=== PATIENT | female | born 1940 | race Caucasian/White ===

== ENCOUNTER 2017-01-25 08:45 | Day surgery (SDC) | payer MEDICARE, OTHER ==
[~2017-01-25 08:45] MED LIST: DIPHENHYDRAMINE HCL 50 MG/ML VIAL ONE; EPINEPHRINE INJ 1 MG/10 ML DISP.SYRIN ONE; FENTANYL CITRATE INJ/PF 100 MCG/2 ML AMPUL ONE; FLUMAZENIL INJ 0.5 MG/5 ML VIAL IV ONE; GLUCAGON,HUMAN RECOMB 1 MG INJ ONE; NALOXONE HCL INJ/PF 0.4 MG/1 ML SDV ONE; ONDANSETRON HCL INJ/PF 4 MG/2 ML SDV ONE
[2017-01-25] MEDS: MIDAZOLAM 2 MG/2 ML INJ ONE ×2 (09:04→09:09)
--- NOTE | 2017-01-25 09:22 | Operative Report ---
Operative Report DATE OF SURGERY: 01/25/17 Operative Report: The risks benefits and alternatives of the procedure explained to the patient in detail and informed consent is obtained that GIF Olympus video scope was inserted into the patient's mouth and hypopharynx the esophagus is identified intubated and insufflated the scope was then advanced through the esophagus stomach and duodenum retroflexion maneuver is done the esophagus stomach and first and second portions of the duodenum examined PREOPERATIVE DIAGNOSIS: History of gastric AVMs POSTOPERATIVE DIAGNOSIS: Gastric AVMs which are ablated in situ. Single variceal column which will need to be banded in the future OPERATION: EGD with ablation SURGEON: BLANQUITA LOWERY ANESTHESIA: Moderate Sedation - 3 mg of Versed, 25 g of fentanyl. TISSUE REMOVED OR ALTERED: None. COMPLICATIONS: None. ESTIMATED BLOOD LOSS: none. INTRAOPERATIVE FINDINGS: Finding of esophageal variceal column. Gastric AVMs PROCEDURE: Patient tolerated procedure well. No immediate postprocedure complications are noted. Patient is discharged in good condition. Discharge date 01/25/17. Discharge diet: Regular. Discharge activity: Regular. 2-3 week follow-up to discuss findings. We'll schedule patient for outpatient procedure for specific banding of the variceal columns. Patient is instructed to call the office should there be any further problems or questions.
[2017-01-25 11:06] VITALS: BP 141/46
== END 2017-01-25 10:51 | disposition home or self-care (01) ==
LOC: END 08:45
PROVIDERS: ATTEND Internal Medicine Gastroenterology
PROC: 0D568ZZ Destruction of Stomach, Via Natural or Artificial Opening Endoscopic (ICD-10-PCS; principal; 2017-01-25 09:00)
DX: Q27.33 Arteriovenous malformation of digestive system vessel (principal); K21.9 Gastro-esophageal reflux disease without esophagitis; K74.60 Unspecified cirrhosis of liver; K75.81 Nonalcoholic steatohepatitis (NASH)
CPT/HCPCS: 43255; J2250; J3010; J0171; J1200; J1610; J2310; J2405; J3490

== ENCOUNTER 2017-04-12 07:47 | Day surgery (SDC) | payer MEDICARE, OTHER ==
[2017-04-12] MEDS ORDERED: ONDANSETRON HCL INJ/PF 4 MG/2 ML SDV ONE (07:50)
[2017-04-12] MEDS ORDERED: DIPHENHYDRAMINE HCL 50 MG/ML VIAL ONE (07:50)
[2017-04-12] MEDS ORDERED: NALOXONE HCL INJ/PF 0.4 MG/1 ML SDV ONE (07:50)
[2017-04-12] MEDS ORDERED: FLUMAZENIL INJ 0.5 MG/5 ML VIAL IV ONE (07:51)
[2017-04-12] MEDS ORDERED: FENTANYL CITRATE INJ/PF 100 MCG/2 ML AMPUL ONE (07:51)
[2017-04-12] MEDS ORDERED: GLUCAGON,HUMAN RECOMB 1 MG INJ ONE (07:52)
[2017-04-12] MEDS ORDERED: EPINEPHRINE INJ 1 MG/10 ML DISP.SYRIN ONE (07:52)
[2017-04-12] MEDS: MIDAZOLAM 2 MG/2 ML INJ ONE ×3 (08:08→08:18)
--- NOTE | 2017-04-12 08:26 | Operative Report ---
Operative Report DATE OF SURGERY: 04/12/17 Operative Report: The risks benefits and alternatives of the procedure explained to the patient in detail and informed consent is obtained. A GIF Olympus video scope was inserted into the patient's mouth and hypopharynx, the esophagus is identified intubated and insufflated, the scope was then advanced through the esophagus stomach and duodenum, retroflexion maneuver is done, the esophagus stomach and first and second portions of the duodenum examined PREOPERATIVE DIAGNOSIS: Cirrhosis. History of gastric AVMs POSTOPERATIVE DIAGNOSIS: Gastric AVMs, ablated in situ. Grade 1 esophageal varices OPERATION: EGD with ablation SURGEON: BLANQUITA LOWERY ANESTHESIA: Moderate Sedation - 4 mg of Versed, 25 mcg of fentanyl. Conscious sedation monitoring time 30 minutes. TISSUE REMOVED OR ALTERED: None. COMPLICATIONS: None. ESTIMATED BLOOD LOSS: None. INTRAOPERATIVE FINDINGS: As noted above. PROCEDURE: Patient tolerated the procedure well. No immediate post procedure complications noted. Patient discharged in good condition Discharge date 04/12/2017 Discharge diet: Regular. Discharge activity: Regular. 2-3 week follow-up to discuss findings. Patient is instructed to proceed to the emergency room call the office should there be any further problems or questions.
[2017-04-12 09:23] VITALS: BP 143/50
== END 2017-04-12 09:50 | disposition home or self-care (01) ==
LOC: END 07:47
PROVIDERS: ATTEND Internal Medicine Gastroenterology
PROC: 0D558ZZ Destruction of Esophagus, Via Natural or Artificial Opening Endoscopic (ICD-10-PCS; principal; 2017-04-12 08:00)
DX: I85.00 Esophageal varices without bleeding (principal); Q27.33 Arteriovenous malformation of digestive system vessel; I10 Essential (primary) hypertension
CPT/HCPCS: 43270; J2250; J3010; J0171; J1200; J1610; J2310; J2405; J3490

== ENCOUNTER 2017-06-10 11:05 | Day surgery (SDC) | payer MEDICARE, OTHER ==
[~2017-06-10 11:05] MED LIST changes: -DIPHENHYDRAMINE HCL 50 MG/ML VIAL ONE; -EPINEPHRINE INJ 1 MG/10 ML DISP.SYRIN ONE; -FENTANYL CITRATE INJ/PF 100 MCG/2 ML AMPUL ONE; -FLUMAZENIL INJ 0.5 MG/5 ML VIAL IV ONE; -GLUCAGON,HUMAN RECOMB 1 MG INJ ONE; -NALOXONE HCL INJ/PF 0.4 MG/1 ML SDV ONE; -ONDANSETRON HCL INJ/PF 4 MG/2 ML SDV ONE; +PROPOFOL INJ 200 MG/20 ML VIAL IV ONE
[2017-06-10 13:38] VITALS: BP 147/52
--- NOTE | 2017-06-10 14:04 | Operative Report ---
Operative Report DATE OF SURGERY: 06/10/17 Operative Report: The risks, benefits and alternatives of the procedure including risks of bleeding, perforation requiring surgery are explained to the patient detail and informed consent was obtained. Patient was taken to the endoscopy suite and placed in the left, lateral decubital position. Timeout was called. Propofol medications administered. A rectal examination was done which did not reveal any masses, tears or fissures. An Olympus videoscope was inserted into the patient's rectum. The scope was then carefully advanced all the way to the cecum. The cecum was identified by the usual anatomical landmarks including the ileocecal valve as well as the appendiceal office. Photodocumentation is obtained. The scope was then sequentially pulled back via the rest segments of the colon including the ascending colon, hepatic flexure, transverse colon, splenic flexure, descending colon and finding to the rectosigmoid portions of the colon. Retroflexion maneuver was performed. PREOPERATIVE DIAGNOSIS: Change of bowel habits POSTOPERATIVE DIAGNOSIS: Inflammation noted on the right side of the colon status post biopsy. OPERATION: Colonoscopy with biopsy SURGEON: BLANQUITA LOWERY ANESTHESIA: LMAC TISSUE REMOVED OR ALTERED: As noted above. COMPLICATIONS: None. ESTIMATED BLOOD LOSS: None. INTRAOPERATIVE FINDINGS: As discussed above. Redundant colon. Semisolid stool retained throughout the colon. Right-sided colon inflammation status post biopsy. Internal hemorrhoids. No masses polyps AVMs noted. PROCEDURE: Patient tolerated the procedure well. No immediate postprocedure complications are noted. Patient discharged in good condition. Discharge date 06/10/2017. Discharge diet: Regular. Discharge activity: Regular. 2-3 week follow-up to discuss findings. Patient is instructed to call the office or proceed to the emergency room should there be any further problems or questions. We will wait on pathology.
--- NOTE | 2017-06-10 20:03 | EKG REPORT ---
SEVERITY:- ABNORMAL ECG - SINUS RHYTHM LEFT BUNDLE BRANCH BLOCK : Confirmed by: Michael Mcfarlane 10-Jun-2017 20:02:37
== END 2017-06-10 13:50 | disposition home or self-care (01) ==
LOC: END 11:05
PROVIDERS: ATTEND Internal Medicine Gastroenterology
PROC: 0DBF8ZX Excision of Right Large Intestine, Via Natural or Artificial Opening Endoscopic, Diagnostic (ICD-10-PCS; principal; 2017-06-10 13:00)
DX: K52.9 Noninfective gastroenteritis and colitis, unspecified (principal); K64.8 Other hemorrhoids; Z86.010 Personal history of colon polyps; Z79.899 Other long term (current) drug therapy; Z88.5 Allergy status to narcotic agent
CPT/HCPCS: 45380; 88305 ×2; 93005; 93010; J2704; 810

== ENCOUNTER 2017-09-06 07:34 | Day surgery (SDC) | payer MEDICARE, OTHER ==
[~2017-09-06 07:34] MED LIST changes: +DIPHENHYDRAMINE HCL 50 MG/ML VIAL ONE; +FENTANYL CITRATE INJ/PF 100 MCG/2 ML AMPUL ONE; +FLUMAZENIL INJ 0.5 MG/5 ML VIAL ONE; +NALOXONE HCL INJ/PF 0.4 MG/1 ML SDV ONE; +ONDANSETRON HCL INJ/PF 4 MG/2 ML SDV ONE; -PROPOFOL INJ 200 MG/20 ML VIAL IV ONE
[2017-09-06] MEDS ORDERED: GLUCAGON,HUMAN RECOMB 1 MG INJ ONE (07:35)
[2017-09-06] MEDS ORDERED: EPINEPHRINE INJ 1 MG/10 ML DISP.SYRIN ONE (07:35)
[2017-09-06] MEDS: MIDAZOLAM 2 MG/2 ML INJ ONE ×2 (08:02→08:09)
--- NOTE | 2017-09-06 08:19 | Operative Report ---
Operative Report DATE OF SURGERY: 09/06/17 Operative Report: The risks benefits and alternatives of the procedure explained to the patient in detail and informed consent is obtained.A GIF Olympus video scope was inserted into the patient's mouth and hypopharynx, the esophagus is identified intubated and insufflated, the scope was then advanced through the esophagus stomach and duodenum, retroflexion maneuver is done, the esophagus stomach and first and second portions of the duodenum examined PREOPERATIVE DIAGNOSIS: History of AVMs. Chronic anemia POSTOPERATIVE DIAGNOSIS: AVMs that ablated in situ. Gastritis. Hiatal hernia. No evidence of esophageal varices OPERATION: EGD with ablation SURGEON: BLANQUITA LOWERY ANESTHESIA: Moderate Sedation - 3 mg of Versed, 12.5 mg of fentanyl. Conscious sedation monitoring time 30 minutes. TISSUE REMOVED OR ALTERED: None. COMPLICATIONS: None. ESTIMATED BLOOD LOSS: None. INTRAOPERATIVE FINDINGS: As noted above. PROCEDURE: Patient tolerated procedure well. No immediate postprocedure comp occasions are noted. Patient discharged in good condition. Discharge date 09/06/2017. Discharge diet: Regular. Discharge activity: Regular. 2-3 week follow-up to discuss findings. Repeat EGD in 3 months. Patient is instructed to call the office or proceed to the emergency room should there be any further problems or questions.
[2017-09-06 11:18] VITALS: BP 140/82
== END 2017-09-06 10:30 | disposition home or self-care (01) ==
LOC: END 07:34
PROVIDERS: ATTEND Internal Medicine Gastroenterology
PROC: 0D568ZZ Destruction of Stomach, Via Natural or Artificial Opening Endoscopic (ICD-10-PCS; principal; 2017-09-06 08:00)
DX: K31.819 Angiodysplasia of stomach and duodenum without bleeding (principal); K29.70 Gastritis, unspecified, without bleeding; K44.9 Diaphragmatic hernia without obstruction or gangrene; K74.60 Unspecified cirrhosis of liver; I10 Essential (primary) hypertension; K21.9 Gastro-esophageal reflux disease without esophagitis; Z79.899 Other long term (current) drug therapy
CPT/HCPCS: 43270; J2250; J3010; J0171; J1200; J1610; J2310; J2405; J3490

== ENCOUNTER → 2017-11-28 | Outpatient (CLI) | payer MEDICARE, OTHER ==
--- NOTE | 2017-11-28 11:10 | RADIOLOGY REPORT (SQ) ---
EXAM DESCRIPTION: CT CHEST WITH COMPLETED DATE/TIME: 11/28/2017 9:55 am REASON FOR STUDY: ABN CXR (R93.8) R93.8 ABNORMAL FINDINGS ON DIAGNOSTIC IMAGING OF BODY STRUCT COMPARISON: CT abdomen pelvis 03/27/2016 AP chest 03/26/2016 TECHNIQUE: CT scan of the chest performed using helical scanning technique with dynamic intravenous contrast injection. Images reviewed with lung, soft tissue and bone windows. Reconstructed coronal and sagittal MPR images reviewed. All images stored on PACS. All CT scanners at this facility use dose modulation, iterative reconstruction, and/or weight based d osing when appropriate to reduce radiation dose to as low as reasonably achievable (ALARA). [facility]: Dose Right [facility]: CareDose [facility]: Dose Right [facility]: Teradose 4D [facility]: [employer] CONTRAST TYPE AND DOSE: contrast/concentration: Isovue 370.00 mg/ml; Total Contrast Delivered: 78.0 ml; Total Saline Delivered: 34.8 ml RENAL FUNCTION: Creatinine 0.8 RADIATION DOSE: CT Rad equipment meets quality standard of care and radiation dose reduction techniq ues were employed. CTDIvol: 5.4 mGy. DLP: 192 mGy-cm. . LIMITATIONS: None. FINDINGS: LUNGS AND PLEURA: Minimal patchy airspace disease in the right upper lobe adjacent to the minor fissure axial image 28, and coronal image 24. There is stable bandlike scarring or atelectasis just above the left hemidiaphragm, unchanged from CT abdomen pelvis 03/27/2016. Remainder of the lungs are free of focal infiltrates. No pleural effusion. No pneumothorax. HILAR AND MEDIASTINAL STRUCTURES: No identified masses or abnormal nodes. HEART AND VASCULAR STRUCTURES: No aneurysm or dissection. No central pulmonary emboli. No pericardi al effusion. Mild coronary artery calcification HARDWARE: None in the chest. UPPER ABDOMEN: Moderate retrocardiac hiatal hernia with air-fluid level. THYROID AND OTHER SOFT TISSUES: No masses. No adenopathy. BONES: No significant finding. OTHER: No other significant finding. IMPRESSION: Minimal airspace disease right upper lobe adjacent to the minor fissure. TECHNICAL DOCUMENTATION: JOB ID: [id number] Quality ID # [id number]: Final reports with documentation of one or more dose reduction techniques (e.g., Au tomated exposure control, adjustment of the mA and/or kV according to patient size, use of iterative reconstruction technique) 2010 [employer]- All Rights Reserved
== END ==
LOC: RAD 09:04
PROVIDERS: ATTEND Internal Medicine Geriatric Medicine
DX: R93.8 Abnormal findings on diagnostic imaging of other specified body structures (principal); K44.9 Diaphragmatic hernia without obstruction or gangrene
CPT/HCPCS: 71260; 82565

== ENCOUNTER 2018-03-03 09:21 | Day surgery (SDC) | payer MEDICARE, OTHER ==
[~2018-03-03 09:21] MED LIST changes: -DIPHENHYDRAMINE HCL 50 MG/ML VIAL ONE; -FENTANYL CITRATE INJ/PF 100 MCG/2 ML AMPUL ONE; -FLUMAZENIL INJ 0.5 MG/5 ML VIAL ONE; -NALOXONE HCL INJ/PF 0.4 MG/1 ML SDV ONE; -ONDANSETRON HCL INJ/PF 4 MG/2 ML SDV ONE; +PROPOFOL INJ 200 MG/20 ML VIAL IV ONE
[2018-03-03 11:06] VITALS: BP 133/41
--- NOTE | 2018-03-03 12:31 | Operative Report ---
Operative Report DATE OF SURGERY: 03/03/18 Operative Report: The risks benefits and alternatives of the procedure explained to the patient in detail and informed consent is obtained.A GIF Olympus video scope was inserted into the patient's mouth and hypopharynx, the esophagus is identified intubated and insufflated, the scope was then advanced through the esophagus stomach and duodenum, retroflexion maneuver is done, the esophagus stomach and first and second portions of the duodenum examined PREOPERATIVE DIAGNOSIS: Epigastric pain, nausea. 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 Mild gastritis status post biopsy OPERATION: EGD with ablation. EGD with biopsy SURGEON: BLANQUITA LOWERY ANESTHESIA: LMAC TISSUE REMOVED OR ALTERED: As noted above. COMPLICATIONS: None. ESTIMATED BLOOD LOSS: None. INTRAOPERATIVE FINDINGS: As noted above. PROCEDURE: Patient tolerated the procedure well. No immediate postprocedure complications are noted. Patient discharged in good condition. Discharge date 03/03/2018. Discharge diet: Regular. Discharge activity: Regular. 2-3 week follow-up to discuss findings. Patient is instructed to call the office or proceed to the emergency room should there be any further problems or questions.
== END 2018-03-03 10:45 | disposition home or self-care (01) ==
LOC: END 09:21
PROVIDERS: ATTEND Internal Medicine Gastroenterology
DX: K92.1 Melena (principal); K74.60 Unspecified cirrhosis of liver; K76.0 Fatty (change of) liver, not elsewhere classified; K29.70 Gastritis, unspecified, without bleeding; Z79.899 Other long term (current) drug therapy; Z88.5 Allergy status to narcotic agent; Q27.30 Arteriovenous malformation, site unspecified
CPT/HCPCS: 43270; 43239; 88305 ×2; J2704; 731

== ENCOUNTER → 2018-03-26 | Outpatient (CLI) | payer MEDICARE, OTHER ==
--- NOTE | 2018-03-26 14:32 | WOMENS IMAGING REPORT ---
EXAM DESCRIPTION: 3D SCREENING MAMMO BILAT COMPLETED DATE/TIME: 03/26/2018 1:46 pm REASON FOR STUDY: ROUTINE SCREENING;Z12.31 Z12.31 ENCNTR SCREEN MAMMOGRAM FOR MALIGNANT NEOPLASM OF LULU COMPARISON: 10/19/2016 and 10/18/2015. TECHNIQUE: Standard craniocaudal and mediolateral oblique views of each breast recorded using digita l acquisition and breast tomosynthesis. LIMITATIONS: None. FINDINGS: Findings present which are benign by mammographic criteria. No suspicious masses, calcifi cations or architectural distortion. Pertinent benign findings: Stable benign calcifications. Read with the assistance of CAD. .[facility] - R2 Cenova Version 1.3 .[facility] - R2 Cenova Version 1.3 .[facility] - R2 Cenova Version 2.4 .[facility] [place] R2 Cenova Version 2.4 .[facility] - R2 Manager Multimedia Version 9.2 Benign mammographic findings may include one or more of the following: Smooth masses, popcorn/rim/co arse calcifications, asymmetries, post-procedure changes, and lesions with long-standing stability. IMPRESSION: BENIGN MAMMOGRAPHIC FINDINGS. BIRADS 2 BREAST DENSITY: b. There are scattered areas of fibroglandular density. BIRAD: 2 BENIGN FINDING(S) RECOMMENDATION: RECOMMENDATION: ROUTINE SCREENING COMMENT: The patient has been notified of the results by letter per SA requirements. Additional no tification policies are in place for contacting patient with suspicious or incomplete findings. Quality ID #[id number]: The [employer] recommends an annual screening mammogram for women aged 40 years or over. This facility utilizes a reminder system to ensure that all patients receive reminder letters, and/or direct phone calls for appointments. This includes reminders for routine scr eening mammograms, diagnostic mammograms, or other Breast Imaging Interventions when appropriate. Th is patient will be placed in the appropriate reminder system. The [employer] [place] (ACR) has developed recommendations for screening MRI of the breast s in certain patient populations, to be used in conjunction with mammography. Breast MRI surveillanc e may be appropriate for women with more than 20% lifetime risk of developing breast cancer as deter mined by genetic testing, significant family history of the disease, or history of mantle radiation f or Hodgkins Disease. ACR Practice Guidelines 2008. DBT Technology DBT is a type of tomographic mammography. With conventional mammography, overlapping breast tissue ma y make lesions difficult to detect, even with good compression. DBT uses an x-ray tube that rotates a round the breast, taking images at different angles. These images are then combined to create thin sl ices of the breast that the radiologist can view as a 3D reconstruction. The [employer]Sky unit can perform full-field digital mammograms (2D imaging); or DBT (3D imaging); or both, in a combination mode that quickly performs both the mammogram and the tomosynthesis scan while the breast is still compressed. PQRS 6045F: Fluoroscopic imaging is not utilized for breast tomosynthesis. TECHNICAL DOCUMENTATION: FINDING NUMBER: (1) ASSESSMENT: (1) JOB ID: [id number] [employer]- All Rights Reserved Reading location - IP/workstation name: [email or web address]
== END ==
LOC: WI 11:59
PROVIDERS: ATTEND Obstetrics & Gynecology Gynecology
DX: Z12.31 Encounter for screening mammogram for malignant neoplasm of breast (principal)
CPT/HCPCS: 77063; 77067

== ENCOUNTER 2018-06-02 19:34 | Inpatient (IN) | payer MEDICARE, OTHER ==
[2018-06-02] MEDS ORDERED: RINGERS SOLUTION,LACTATED 500 ML IV ONE (19:49)
--- NOTE | 2018-06-02 19:58 | ER Document Report ---
ED General - General Stated Complaint: WEAKNESS Time Seen by Provider: 06/02/18 19:41 Cannot obtain history due to: Altered mental status Notes: Patient is an 78-year-old female with a past medical history of hypertension, liver cirrhosis with prior esophageal variceal bleeds who presents with generalized weakness by EMS. History is very limited secondary to the patient' s degree of fatigue and some underlying dementia. The patient apparently was in her home today, became so weak that she dropped to her knees and then lie down on the ground. The family could not get her off the ground so EMS was contacted to bring her to the emergency department. Apparently for the past several weeks the patient has been feeling progressively more weak. Nothing has noted to improve or worsen her symptoms. She denies any localization of the weakness. She denies any history of similar symptoms in the past. She denies any chest pain, shortness of breath, melena, hematochezia or hematemesis. She denies any fever or constitutional symptoms. She has not seen her general doctor regarding today's concerns. TRAVEL OUTSIDE OF THE [place] IN LAST 30 DAYS: No - Related Data Allergies/Adverse Reactions: codeine [Codeine] Allergy (Intermediate, Verified 06/02/18 20:03) VOMITING meperidine HCl [From Demerol] Allergy (Intermediate, Verified 06/02/18 20:03) n/v Iodinated Contrast- Oral and IV Dye [Iodinated Contrast Media - IV Dye] Allergy (Mild, Verified 06/02/18 20:03) Itching levofloxacin [From Levaquin] Allergy (Mild, Verified 06/02/18 20:03) itching fentanyl Adverse Reaction (Verified 06/02/18 20:03) "can't wake up" BEE STINGS Allergy (Uncoded 06/02/18 20:03) Anaphylaxis Past Medical History - General Information source: Patient, Emergency Med Personnel Cannot obtain history due to: Altered mental status - Social History Smoking Status: Never Smoker Frequency of alcohol use: None Drug Abuse: None Lives with: Spouse/Significant other Family History: Reviewed & Not Pertinent - Past Medical History Cardiac Medical History: Reports: Hx Hypertension, Hx Heart Murmur Denies: Hx Coronary Artery Disease, Hx Heart Attack Pulmonary Medical History: Reports: Hx Pneumonia - hx of Denies: Hx Asthma, Hx Bronchitis, Hx COPD Neurological Medical History: Denies: Hx Cerebrovascular Accident, Hx Seizures Endocrine Medical History: Reports: Hx Diabetes Mellitus Type 2 GI Medical History: Reports: Hx Diverticulitis, Hx Gastroesophageal Reflux Disease. Denies: Hx Hepatitis, Hx Hiatal Hernia, Hx Ulcer Musculoskeletal Medical History: Reports Hx Arthritis - HANDS, BACK Psychiatric Medical History: Reports: Hx Depression Infectious Medical History: Denies: Hx Hepatitis Past Surgical History: Reports: Hx Hysterectomy, Hx Orthopedic Surgery - Back surgery. Denies: Hx Mastectomy, Hx Open Heart Surgery, Hx Pacemaker - Immunizations Hx Diphtheria, Pertussis, Tetanus Vaccination: Yes Hx Pneumococcal Vaccination: 10/21/15 Review of Systems - Review of Systems Notes: Constitutional: Negative for fever. Positive for generalized weakness HENT: Negative for sore throat. Eyes: Negative for visual changes. Cardiovascular: Negative for chest pain. Respiratory: Negative for shortness of breath. Gastrointestinal: Positive for vomiting Genitourinary: Negative for dysuria. Musculoskeletal: Negative for back pain. Skin: Negative for rash. Neurological: Negative for headaches, weakness or numbness. 10 point ROS negative except as marked above and in HPI. Physical Exam - Vital signs Vitals: Temp Pulse Resp BP Pulse Ox 97.8 F 63 20 159/60 H 98 06/02/18 19:38 06/02/18 19:38 06/02/18 19:38 06/02/18 19:38 06/02/18 19:38 Interpretation: Hypertensive Notes: PHYSICAL EXAMINATION: GENERAL: Appears lethargic, generally unwell but in no acute distress HEAD: Atraumatic, normocephalic. EYES: Pupils equal round and reactive to light, extraocular movements intact, sclera anicteric, conjunctiva are normal. ENT: nares patent, oropharynx clear without exudates. Mildly dry mucous membranes. NECK: Normal range of motion, supple without lymphadenopathy LUNGS: Breath sounds clear to auscultation bilaterally and equal. No wheezes rales or rhonchi. HEART: Regular rate and rhythm without murmurs ABDOMEN: Soft, nontender, normoactive bowel sounds. No guarding, no rebound. No masses appreciated. EXTREMITIES: Normal range of motion, no pitting or edema. No cyanosis. NEUROLOGICAL: Globally weak throughout in all extremities. However patient does apply equal and symmetric resistance on command both distally and proximally in the bilateral upper and lower extremities. No sensory loss. Face symmetric. Cranial nerves intact. Speech clear. Gait deferred. PSYCH: Lethargic SKIN: Warm, Dry, normal turgor, no rashes or lesions noted. Course - Re-evaluation Re-evalutation: 06/02/18 20:17 Presentation of an overall unwell appearing 78-year-old female with no specific complaints other than feeling generally weak. Physical examination is notable only for global weakness on neurologic testing without any focality. The patient denies any additional concerns other than feeling so weak. Laboratory assessment will be undertaken. Will also obtain a chest x-ray, stool guaiac given her prior history of GI bleeds and reassess. 2300 Patient continues to appear unwell, no improvement with IV fluids. Laboratories are broadly unremarkable with exception of anemia and it is difficult to determine the chronicity of this anemia given that the last hemoglobin check is from 2015 at which time it was 11.1. I did obtain a recheck of the hemoglobin that did slightly downtrending from 9.9-9.7 although this is likely related to the IV fluid administration of phlebotomy. Patient's guaiac study is negative. UA is clear without evidence of infection. Chest x- ray without evidence of an occult pneumonia. Given the patient is unable to ambulate, did have one episode of vomiting here in the emergency department and does have a slight lactate elevation will proceed with a CT of the abdomen pelvis although patient is unable to obtain IV contrast or oral contrast to an allergy. 06/03/18 00:49 CT abdomen pelvis noted to be unremarkable. Recheck of troponin is pending. I discussed the patient's primary care doctor Dr. Arrieta who has accepted her for an observation admission given that she is unable to ambulate at this point and family does not feel control taking her home. Moreover I agree that the patient does continue to look ill although I have been unable to determine the source of why she is feeling so unwell and her workup is overall been relatively reassuring. - Vital Signs Vital signs: Temp Pulse Resp BP Pulse Ox 97.9 F 63 12 131/49 H 98 06/02/18 23:00 06/02/18 19:38 06/03/18 02:02 06/03/18 02:02 06/03/18 02:02 - Laboratory Result Diagrams: 06/02/18 23:00 06/02/18 20:00 Laboratory results interpreted by me: 06/02/18 06/02/18 06/02/18 20:00 20:00 20:00 RBC 3.33 L Hgb 9.9 L Hct 29.2 L RDW 14.8 H VBG pCO2 VBG HCO3 Sodium 130.7 L Potassium 5.3 H Carbon Dioxide 19 L BUN 38 H Est GFR (Non-Af Amer) 55 L Glucose 153 H Lactic Acid 2.2 H AST 50 H Albumin 3.4 L Urine Urobilinogen 06/02/18 06/02/18 06/02/18 20:55 21:00 23:00 RBC 3.26 L Hgb 9.7 L Hct 28.4 L RDW 15.0 H VBG pCO2 32.6 L VBG HCO3 19.2 L Sodium Potassium Carbon Dioxide BUN Est GFR (Non-Af Amer) Glucose Lactic Acid AST Albumin Urine Urobilinogen 2.0 H - Diagnostic Test Radiology reviewed: Image reviewed, Reports reviewed Radiology results interpreted by me: 06/03/18 00:50 Chest x-ray: No acute infiltrate or pneumothorax. Discharge - Discharge Clinical Impression: General weakness, Unable to walk Anemia Qualifiers: Anemia type: unspecified type Qualified Code(s): D64.9 - Anemia, unspecified Condition: Fair Disposition: ADMITTED OBSERVATION Admitting Provider: [facility] Unit Admitted: Medical Floor
[2018-06-02 20:14] LABS: ABSOLUTE LYMPHOCYTES (AUTO) 2.7 10^3/uL (0.5-4.7); ABSOLUTE MONOCYTES (AUTO) 0.8 10^3/uL (0.1-1.4); ABSOLUTE NEUT (AUTO) 6.2 10^3/uL (1.7-8.2); BASOPHILS % (AUTO) 0.5 % (0-2); HEMATOCRIT 29.2 % (36.0-47.0); HEMOGLOBIN 9.9 g/dL (12.0-15.5); LYMPHOCYTES % (AUTO) 27.6 % (13-45); MEAN CORPUSCULAR HEMOGLOBIN 29.6 pg (27.0-33.4); MEAN CORPUSCULAR HGB CONC 33.8 g/dL (32.0-36.0); MEAN CORPUSCULAR VOLUME 88 fl (80-97); MONOCYTES % (AUTO) 8.1 % (3-13); PLATELET COUNT 213 10^3/uL (150-450); RED BLOOD COUNT 3.33 10^6/uL (3.72-5.28); RED CELL DISTRIBUTION WIDTH 14.8 % (11.5-14.0); SEGMENTED NEUTROPHILS % (AUTO) 63.8 % (42-78); TOTAL CELLS COUNTED % (AUTO) 100 %; WHITE BLOOD COUNT 9.8 10^3/uL (4.0-10.5)
--- NOTE | 2018-06-02 20:27 | RADIOLOGY REPORT (SQ) ---
EXAM DESCRIPTION: CHEST SINGLE VIEW COMPLETED DATE/TIME: 06/02/2018 8:13 pm REASON FOR STUDY: weakness, cough COMPARISON: CT 11/28/2017 EXAM PARAMETERS: NUMBER OF VIEWS: One view. TECHNIQUE: Single frontal radiographic view of the chest acquired. RADIATION DOSE: NA LIMITATIONS: None. FINDINGS: LUNGS AND PLEURA: No opacities, masses or pneumothorax. No pleural effusion. MEDIASTINUM AND HILAR STRUCTURES: Small hiatal hernia. HEART AND VASCULAR STRUCTURES: Borderline heart size. No pulmonary edema. BONES: No acute findings. HARDWARE: None in the chest. OTHER: No other significant finding. IMPRESSION: Borderline heart size with no pulmonary edema. Small hiatal hernia. TECHNICAL DOCUMENTATION: JOB ID: [id number] [email or web address]- All Rights Reserved Reading location - IP/workstation name: [email or web address]
[2018-06-02 20:28] LABS: ALANINE AMINOTRANSFERASE 49 U/L (9-52); ALBUMIN 3.4 g/dL (3.5-5.0); ALKALINE PHOSPHATASE 104 U/L (38-126); ANION GAP 11 (5-19); ASPARTATE AMINO TRANSFERASE 50 U/L (14-36); BILIRUBIN,DIRECT 0.3 mg/dL (0.0-0.4); BILIRUBIN,TOTAL 0.9 mg/dL (0.2-1.3); BLOOD UREA NITROGEN 38 mg/dL (7-20); CALCIUM 9.1 mg/dL (8.4-10.2); CARBON DIOXIDE 19 mmol/L (22-30); CHLORIDE 101 mmol/L (98-107); GLUCOSE 153 mg/dL (75-110); POTASSIUM 5.3 mmol/L (3.6-5.0); SODIUM 130.7 mmol/L (137-145); TOTAL PROTEIN 7.4 g/dL (6.3-8.2)
--- NOTE | 2018-06-02 20:33 | EKG REPORT ---
SEVERITY:- ABNORMAL ECG - SINUS RHYTHM PROBABLE LEFT ATRIAL ABNORMALITY LEFT BUNDLE BRANCH BLOCK : Confirmed by: Zana Duncan MD 02-Jun-2018 20:32:34
[2018-06-02] MEDS ORDERED: ONDANSETRON HCL INJ/PF 4 MG/2 ML SDV IV ONE (20:59)
[2018-06-02 21:12] LABS: APPEARANCE,URINE CLEAR; BILIRUBIN,URINE NEGATIVE (NEGATIVE); COLOR,URINE YELLOW; GLUCOSE, URINE NEGATIVE (NEGATIVE); KETONES,URINE NEGATIVE (NEGATIVE); LEUKOCYTE ESTERASE,URINE NEGATIVE (NEGATIVE); NITRITE,URINE NEGATIVE (NEGATIVE); PROTEIN,URINE NEGATIVE (NEGATIVE)
[2018-06-02 21:20] LABS: VENOUS BLOOD HCO3 19.2 mmol/L (20-32); VENOUS BLOOD PCO2 32.6 mmHg (35-63); VENOUS BLOOD PH 7.39 (7.30-7.42)
--- NOTE | 2018-06-02 23:17 | RADIOLOGY REPORT (SQ) ---
EXAM DESCRIPTION: CT ABDOMEN PELVIS WITHOUT IV CONTRAST COMPLETED DATE/TME: 06/02/2018 21:56 CLINICAL HISTORY: 78 years Female, nausea, ab pain Comparison: March 27, 2016 Technique: IV contrast. Coronal and sagittal reformat. This exam was performed according to our departmental dose-optimization program, which includes automated exposure control, adjustment of the mA and/or kV according to patient size and/or use of iterative reconstruction technique. [facility]: Dose Right [facility]: CareDose [facility]: Dose Right [facility]: Teradose 4D [facility]: [employer] LIMITATIONS: None Findings: Moderate coronary arterial calcification. Small hiatal hernia. Atherosclerosis. Pelvic pessary device. Diminished liver volume with macrolobulated contour and small fluid under the right hemidiaphragm suggestive of cirrhosis. Moderate L1 anterior vertebral compression deformity with vertebroplasty. Moderate T12 anterior compression deformity with small retropulsed component of the superior endplate causing [id number] spinal canal stenosis. Mild vertebral compression deformity at L4 and L3. Inferior thorax, gallbladder, pancreas, spleen, adrenals, renal system, gastrointestinal tract, pelvic organs, lymphatics, vasculature, and musculoskeleton appear otherwise unremarkable. IMPRESSION: No acute findings. Cirrhosis.
[2018-06-02 23:21] LABS: HEMATOCRIT 28.4 % (36.0-47.0); HEMOGLOBIN 9.7 g/dL (12.0-15.5); MEAN CORPUSCULAR HEMOGLOBIN 29.9 pg (27.0-33.4); MEAN CORPUSCULAR HGB CONC 34.2 g/dL (32.0-36.0); MEAN CORPUSCULAR VOLUME 87 fl (80-97); PLATELET COUNT 177 10^3/uL (150-450); RED BLOOD COUNT 3.26 10^6/uL (3.72-5.28); WHITE BLOOD COUNT 7.8 10^3/uL (4.0-10.5)
[2018-06-03] MEDS: NORMAL SALINE 1000 ML 1,000 ML IV PRN (05:25)
[2018-06-03 06:30] LABS: HEMATOCRIT 28.5 % (36.0-47.0); HEMOGLOBIN 9.6 g/dL (12.0-15.5); MEAN CORPUSCULAR HEMOGLOBIN 29.3 pg (27.0-33.4); MEAN CORPUSCULAR HGB CONC 33.8 g/dL (32.0-36.0); MEAN CORPUSCULAR VOLUME 87 fl (80-97); PLATELET COUNT 160 10^3/uL (150-450); RED BLOOD COUNT 3.28 10^6/uL (3.72-5.28); RED CELL DISTRIBUTION WIDTH 14.6 % (11.5-14.0); WHITE BLOOD COUNT 7.8 10^3/uL (4.0-10.5)
[2018-06-03 06:56] LABS: ALANINE AMINOTRANSFERASE 42 U/L (9-52); ALBUMIN 3.2 g/dL (3.5-5.0); ALKALINE PHOSPHATASE 87 U/L (38-126); ANION GAP 9 (5-19); ASPARTATE AMINO TRANSFERASE 54 U/L (14-36); BILIRUBIN,DIRECT 0.2 mg/dL (0.0-0.4); BILIRUBIN,TOTAL 0.9 mg/dL (0.2-1.3); BLOOD UREA NITROGEN 35 mg/dL (7-20); CALCIUM 8.9 mg/dL (8.4-10.2); CARBON DIOXIDE 22 mmol/L (22-30); CHLORIDE 105 mmol/L (98-107); GLUCOSE 138 mg/dL (75-110); POTASSIUM 4.9 mmol/L (3.6-5.0); SODIUM 135.6 mmol/L (137-145); TOTAL PROTEIN 6.9 g/dL (6.3-8.2)
[2018-06-03] MEDS ORDERED: DEXTROSE 40% GEL 15 GM TUBE PO PRN ×2 (08:32)
[2018-06-03] MEDS ORDERED: DEXTROSE 50%-WATER 25 GM/50 ML DISP.SYRIN IV PRN ×2 (08:32)
[2018-06-03] MEDS ORDERED: GLUCAGON,HUMAN RECOMB 1 MG INJ IM PRN (08:32)
[2018-06-03] MEDS ORDERED: CEFTRIAXONE 1 GM/D5W RTU 1 GM/50 ML RTUPB IV SCH (10:00)
[2018-06-03] MEDS: ENOXAPARIN SODIUM INJ 40 MG/0.4 ML DISP.SYRIN SUBCUT SCH (10:04)
[2018-06-03] MEDS: LANSOPRAZOLE 30 MG TAB.RAP.DR PO SCH ×2 (10:04→18:38)
[2018-06-03] MEDS: CEFTRIAXONE SODIUM 1,000 MG in NORMAL SALINE 50 ML IV SCH (10:09)
[2018-06-03] MEDS: INSULIN LISPRO 100 UNIT/ML 3 ML VIAL SUBCUT PRN ×2 (18:38→22:16)
--- NOTE | 2018-06-03 18:47 | PDOC H&P ---
History of Present Illness Admission Date/PCP: 06/03/18 01:05 ALISSA MCKEON History of Present Illness: GIOVANNY RODRÍGUEZ is a 78 year old female known to my practice who was brought to the ED via EMS service following incident of loss of strength and laying on the floor with difficulty getting up and inability of family to transfer her from the floor led to EMS activation and subsequent transfer to the ED. Patient reported worsening generalized weakness over last several days. She denied any chest pain or difficulty with breathing. No associated fever or chills. No nausea, vomiting, melena, hematochezia, hematemesis, diarrhea or abdominal pain. Patient admitted to poor p.o intake and appetite related to generalized weakness and lack of strength to feed herself. Her initial ED evaluation was unrevealing except for altered mental status, generalized weakness, and low serum sodium level. Due to her overt weakness, altered mental status, and hyponatremia she was advised hospitalization for further evaluation and management. 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 Past Medical History Cardiac Medical History: Reports: Hypertension, Heart Murmur Denies: Coronary Artery Disease, Myocardial Infarction Pulmonary Medical History: Reports: Pneumonia - hx of Denies: Asthma, Bronchitis, Chronic Obstructive Pulmonary Disease (COPD) Neurological Medical History: Denies: Seizures Endocrine Medical History: Reports: Diabetes Mellitus Type 2 GI Medical History: Reports: Diverticulitis, Gastroesophageal Reflux Disease Denies: Hepatitis, Hiatal Hernia Musculoskeltal Medical History: Reports: Arthritis - HANDS, BACK Psychiatric Medical History: Reports: Depression Hematology: Reports: Anemia Denies: Sickle Cell Disease Past Surgical History Past Surgical History: Reports: Hysterectomy, Orthopedic Surgery - Back surgery Denies: Amputation, Mastectomy, Pacemaker Social History Lives with: Spouse/Significant other Smoking Status: Never Smoker - Advance Directive Resuscitation Status: Full Code Family History Family History: Reviewed & Not Pertinent Parental Family History Reviewed: Yes Children Family History Reviewed: Yes Sibling(s) Family History Reviewed.: Yes Medication/Allergy Home Medications: Cyclosporine 0.05% Oph Emulsio [Restasis 0.05% Oph Emulsion Pf 0.4 ml] 1 drop OU BID 06/03/18 Duloxetine HCl [Cymbalta] 60 mg PO DAILY 06/03/18 Hydrochlorothiazide [Hydrodiuril 12.5 mg Capsule] 12.5 mg PO DAILY 06/03/18 Nadolol [Corgard 40 mg Tablet] 40 mg PO DAILY 06/03/18 Ondansetron HCl [Zofran 4 mg Tablet] 4 mg PO Q4HP PRN 06/03/18 Tramadol HCl [Ultram 50 mg Tablet] 50 mg PO Q6HP PRN 06/03/18 Valsartan [Diovan 160 mg Tablet] 160 mg PO Q12 06/03/18 Allergies/Adverse Reactions: codeine [Codeine] Allergy (Intermediate, Verified 06/02/18 20:03) VOMITING meperidine HCl [From Demerol] Allergy (Intermediate, Verified 06/02/18 20:03) n/v Iodinated Contrast- Oral and IV Dye [Iodinated Contrast Media - IV Dye] Allergy (Mild, Verified 06/02/18 20:03) Itching levofloxacin [From Levaquin] Allergy (Mild, Verified 06/02/18 20:03) itching fentanyl Adverse Reaction (Verified 06/02/18 20:03) "can't wake up" BEE STINGS Allergy (Uncoded 06/02/18 20:03) Anaphylaxis Review of Systems Constitutional: PRESENT: weakness. ABSENT: as per HPI, anorexia, chills, fatigue, fever(s), headache(s), night sweats, weight gain, weight loss, other Eyes: ABSENT: visual disturbances Ears: ABSENT: hearing changes Nose, Mouth, and Throat: ABSENT: as per HPI, headache(s), mouth pain, sore throat, vertigo, other Cardiovascular: ABSENT: chest pain, dyspnea on exertion, edema, orthropnea, palpitations Respiratory: ABSENT: cough, hemoptysis Gastrointestinal: ABSENT: abdominal pain, constipation, diarrhea, hematemesis, hematochezia, nausea, vomiting Musculoskeletal: PRESENT: muscle weakness. ABSENT: as per HPI, back pain, deformity, joint swelling, other Neurological: PRESENT: memory loss, weakness - generalized Psychiatric: ABSENT: anxiety, depression, homidical ideation, suicidal ideation Endocrine: ABSENT: cold intolerance, heat intolerance, polydipsia, polyuria Hematologic/Lymphatic: ABSENT: easy bleeding, easy bruising, lymphadenopathy Allergic/Immunologic: ABSENT: seasonal rhinorrhea Physical Exam Vital Signs: Temp Pulse Resp BP Pulse Ox 97.9 F 62 16 162/53 H 97 06/03/18 07:21 06/03/18 07:21 06/03/18 07:21 06/03/18 07:21 06/03/18 07:21 Intake & Output 06/02/18 06/03/18 06/04/18 06:59 06:59 06:59 Output Total 0 Balance 0 Weight 59.4 kg General appearance: PRESENT: no acute distress Head exam: PRESENT: atraumatic, normocephalic Eye exam: PRESENT: conjunctiva pink, EOMI, PERRLA. ABSENT: scleral icterus Ear exam: PRESENT: normal external ear exam Mouth exam: PRESENT: moist - fairly Throat exam: ABSENT: post pharyngeal erythema, tonsillar erythema, tonsillar exudate, tonsillogmegaly, other Neck exam: PRESENT: full ROM. ABSENT: carotid bruit, JVD, lymphadenopathy, thyromegaly Respiratory exam: PRESENT: clear to auscultation brigida, decreased breath sounds - at lung bases Cardiovascular exam: PRESENT: RRR. ABSENT: diastolic murmur, rubs, systolic murmur Pulses: PRESENT: +1 pedal pulses bilateral Vascular exam: PRESENT: normal capillary refill. ABSENT: pallor GI/Abdominal exam: PRESENT: normal bowel sounds, soft. ABSENT: distended, guarding, mass, organolmegaly, rebound, tenderness Rectal exam: PRESENT: deferred Gentrourinary exam: ABSENT: ecchymosis, erythema Extremities exam: ABSENT: pedal edema Musculoskeletal exam: PRESENT: normal inspection Neurological exam: PRESENT: altered - demosntrate confusion relating to sequence of her presentation and disorientation to place and person at the time of my bedside evaluation Psychiatric exam: ABSENT: agitated, anxious Skin exam: PRESENT: dry, intact, warm Results Laboratory Results: I reviewed her initial laboratory results on [employer] and form significant part of my medical decision making. 06/03/18 05:58 06/03/18 05:58 06/03/18 06/03/18 05:58 05:58 WBC 7.8 RBC 3.28 L Hgb 9.6 L Hct 28.5 L MCV 87 MCH 29.3 MCHC 33.8 RDW 14.6 H Plt Count 160 Sodium 135.6 L Potassium 4.9 Chloride 105 Carbon Dioxide 22 Anion Gap 9 BUN 35 H Creatinine 1.02 Est GFR ( Amer) > 60 Est GFR (Non-Af Amer) 52 L Glucose 138 H Calcium 8.9 Magnesium 1.8 Total Bilirubin 0.9 AST 54 H ALT 42 Alkaline Phosphatase 87 Total Protein 6.9 Albumin 3.2 L Impressions: Chest X-Ray 06/02/18 19:48 IMPRESSION: Borderline heart size with no pulmonary edema. Small hiatal hernia. Abdomen/Pelvis CT 06/02/18 21:56 IMPRESSION: No acute findings. Cirrhosis. Assessment & Plan - Diagnosis (1) General weakness Is this a current diagnosis for this admission?: Yes Plan: See admitting attending physician orders. (2) Hyponatremia with normal extracellular fluid volume Is this a current diagnosis for this admission?: Yes Plan: See admitting attending physician orders. (3) Probable sepsis Is this a current diagnosis for this admission?: Yes Plan: See admitting attending physician orders. (4) Microcytic anemia Is this a current diagnosis for this admission?: Yes Plan: See admitting attending physician orders. (5) Non-alcoholic cirrhosis Is this a current diagnosis for this admission?: Yes Plan: See admitting attending physician orders. (6) Esophageal varices in cirrhosis Is this a current diagnosis for this admission?: Yes Plan: See admitting attending physician orders. (7) Diabetes mellitus type 2 in nonobese Is this a current diagnosis for this admission?: Yes Plan: See admitting attending physician orders. (8) Essential hypertension Is this a current diagnosis for this admission?: Yes Plan: See admitting attending physician orders. (9) GERD (gastroesophageal reflux disease) Qualifiers: Esophagitis presence: esophagitis presence not specified Qualified Code(s) : K21.9 - Gastro-esophageal reflux disease without esophagitis Is this a current diagnosis for this admission?: Yes Plan: See admitting attending physician orders. (10) Depression Qualifiers: Depression Type: major depressive disorder Major depression recurrence: unspecified whether recurrent Active/Remission status: remission status unspecified Qualified Code(s): F32.9 - Major depressive disorder, single episode, unspecified Is this a current diagnosis for this admission?: Yes Plan: See admitting attending physician orders. (11) Osteoarthritis involving multiple joints on both sides of body Is this a current diagnosis for this admission?: Yes Plan: See admitting attending physician orders. - Time Time Spent: 50 to 70 Minutes Medications reviewed and adjusted accordingly: Yes Anticipated discharge: Home with Homehealth Within: Other - Inpatient Certification Post Hospital Care: D/C Software Product Specialist Documentation - Plan Summary Plan Summary: See admitting attending physician orders.
[2018-06-04] MEDS: NORMAL SALINE 1000 ML 1,000 ML IV PRN ×2 (02:35→17:27)
[2018-06-04 06:11] LABS: ABSOLUTE LYMPHOCYTES (AUTO) 1.9 10^3/uL (0.5-4.7); ABSOLUTE MONOCYTES (AUTO) 0.6 10^3/uL (0.1-1.4); ABSOLUTE NEUT (AUTO) 5.4 10^3/uL (1.7-8.2); BASOPHILS % (AUTO) 0.1 % (0-2); HEMATOCRIT 25.2 % (36.0-47.0); HEMOGLOBIN 8.9 g/dL (12.0-15.5); LYMPHOCYTES % (AUTO) 24.5 % (13-45); MEAN CORPUSCULAR HEMOGLOBIN 30.6 pg (27.0-33.4); MEAN CORPUSCULAR HGB CONC 35.2 g/dL (32.0-36.0); MEAN CORPUSCULAR VOLUME 87 fl (80-97); MONOCYTES % (AUTO) 7.3 % (3-13); PLATELET COUNT 163 10^3/uL (150-450); RED CELL DISTRIBUTION WIDTH 14.6 % (11.5-14.0); SEGMENTED NEUTROPHILS % (AUTO) 68.1 % (42-78); TOTAL CELLS COUNTED % (AUTO) 100 %
[2018-06-04 06:35] LABS: ALANINE AMINOTRANSFERASE 53 U/L (9-52); ALBUMIN 2.7 g/dL (3.5-5.0); ALKALINE PHOSPHATASE 95 U/L (38-126); ANION GAP 10 (5-19); ASPARTATE AMINO TRANSFERASE 54 U/L (14-36); BILIRUBIN,DIRECT 0.2 mg/dL (0.0-0.4); BILIRUBIN,TOTAL 0.6 mg/dL (0.2-1.3); BLOOD UREA NITROGEN 31 mg/dL (7-20); CALCIUM 8.3 mg/dL (8.4-10.2); CARBON DIOXIDE 17 mmol/L (22-30); CHLORIDE 108 mmol/L (98-107); GLUCOSE 166 mg/dL (75-110); POTASSIUM 4.5 mmol/L (3.6-5.0); TOTAL PROTEIN 6.1 g/dL (6.3-8.2)
--- NOTE | 2018-06-04 07:13 | EKG REPORT ---
SEVERITY:- ABNORMAL ECG - SINUS RHYTHM LEFT BUNDLE BRANCH BLOCK : Confirmed by: Zana Duncan MD 04-Jun-2018 07:12:29
[2018-06-04] MEDS ORDERED: TRAMADOL HCL 50 MG TABLET PO PRN (08:40)
[2018-06-04] MEDS ORDERED: (PENDING PHARMACY ID) (Ondansetron Hcl [Zofran 4 Mg Tablet] 4 MG) PO PRN (08:40)
[2018-06-04] MEDS ORDERED: ONDANSETRON 4 MG TAB.RAPDIS PO PRN (09:07)
[2018-06-04] MEDS: DULOXETINE HCL 30 MG CAPSULE.DR PO SCH (09:12)
[2018-06-04] MEDS: VALSARTAN 160 MG TABLET PO SCH ×2 (09:12→22:23)
[2018-06-04] MEDS: LANSOPRAZOLE 30 MG TAB.RAP.DR PO SCH ×2 (09:12→17:27)
[2018-06-04] MEDS: NADOLOL 40 MG TABLET PO SCH (09:12)
[2018-06-04] MEDS: ENOXAPARIN SODIUM INJ 40 MG/0.4 ML DISP.SYRIN SUBCUT SCH (09:12)
[2018-06-04] MEDS: INSULIN LISPRO 100 UNIT/ML 3 ML VIAL SUBCUT PRN ×3 (09:16→23:07)
[2018-06-04] MEDS: CEFTRIAXONE SODIUM 1,000 MG in NORMAL SALINE 50 ML IV SCH (09:19)
[2018-06-04] MEDS: CYCLOSPORINE 0.05% OPH EMULSIO 0.4 ML DROPERETTE OU SCH ×2 (09:22→17:30)
--- NOTE | 2018-06-04 18:54 | PDOC PROGRESS REPORT ---
Subjective Progress Note for:: 06/04/18 Subjective:: No chest pain or difficulty with breathing. Participated in physical therapy session but still expressed overt weakness. No nausea, vomiting, diarrhea or abdominal pain. Appetite and P.O intake remain a challenge. No fever or chills. Reason For Visit: SYMPTOMATIC HYPONATREMIA,FATIGUE,PROBABLE SEPSIS Physical Exam Vital Signs: Temp Pulse Resp BP Pulse Ox 98.8 F 72 16 169/62 H 99 06/04/18 07:43 06/04/18 07:43 06/04/18 07:43 06/04/18 07:43 06/04/18 07:43 Intake & Output 06/03/18 06/04/18 06/05/18 06:59 06:59 06:59 Intake Total 1549 Output Total 0 Balance 0 1549 Weight 59.4 kg 62.1 kg General appearance: PRESENT: no acute distress, well-developed, well-nourished Head exam: PRESENT: atraumatic, normocephalic Eye exam: PRESENT: conjunctiva pink, EOMI, PERRLA. ABSENT: scleral icterus Ear exam: PRESENT: normal external ear exam Mouth exam: PRESENT: moist Respiratory exam: PRESENT: clear to auscultation brigida Cardiovascular exam: PRESENT: RRR. ABSENT: diastolic murmur, rubs, systolic murmur Vascular exam: PRESENT: normal capillary refill. ABSENT: pallor GI/Abdominal exam: PRESENT: normal bowel sounds, soft. ABSENT: distended, guarding, mass, organolmegaly, rebound, tenderness Extremities exam: ABSENT: pedal edema Musculoskeletal exam: PRESENT: normal inspection Neurological exam: PRESENT: alert, awake, oriented to person, oriented to place , oriented to time, oriented to situation, CN II-XII grossly intact. ABSENT: motor sensory deficit Psychiatric exam: PRESENT: appropriate affect, normal mood. ABSENT: homicidal ideation, suicidal ideation Skin exam: PRESENT: dry, intact, warm. ABSENT: cyanosis, rash Results Laboratory Results: 06/04/18 05:41 06/04/18 05:41 06/04/18 06/04/18 05:41 05:41 WBC 8.0 RBC 2.90 L Hgb 8.9 L Hct 25.2 L MCV 87 MCH 30.6 MCHC 35.2 RDW 14.6 H Plt Count 163 Seg Neutrophils % 68.1 Lymphocytes % 24.5 Monocytes % 7.3 Eosinophils % 0.0 Basophils % 0.1 Absolute Neutrophils 5.4 Absolute Lymphocytes 1.9 Absolute Monocytes 0.6 Absolute Eosinophils 0.0 Absolute Basophils 0.0 Sodium 135.0 L Potassium 4.5 Chloride 108 H Carbon Dioxide 17 L Anion Gap 10 BUN 31 H Creatinine 1.00 Est GFR ( Amer) > 60 Est GFR (Non-Af Amer) 53 L Glucose 166 H Calcium 8.3 L Total Bilirubin 0.6 AST 54 H ALT 53 H Alkaline Phosphatase 95 Total Protein 6.1 L Albumin 2.7 L Impressions: Chest X-Ray 06/02/18 19:48 IMPRESSION: Borderline heart size with no pulmonary edema. Small hiatal hernia. Abdomen/Pelvis CT 06/02/18 21:56 IMPRESSION: No acute findings. Cirrhosis. Assessment & Plan - Diagnosis (1) General weakness Is this a current diagnosis for this admission?: Yes (2) Hyponatremia with normal extracellular fluid volume Is this a current diagnosis for this admission?: Yes (3) Probable sepsis Is this a current diagnosis for this admission?: Yes (4) Microcytic anemia Is this a current diagnosis for this admission?: Yes (5) Non-alcoholic cirrhosis Is this a current diagnosis for this admission?: Yes (6) Esophageal varices in cirrhosis Is this a current diagnosis for this admission?: Yes (7) Diabetes mellitus type 2 in nonobese Is this a current diagnosis for this admission?: Yes (8) Essential hypertension Is this a current diagnosis for this admission?: Yes (9) GERD (gastroesophageal reflux disease) Qualifiers: Esophagitis presence: esophagitis presence not specified Qualified Code(s) : K21.9 - Gastro-esophageal reflux disease without esophagitis Is this a current diagnosis for this admission?: Yes (10) Depression Qualifiers: Depression Type: major depressive disorder Major depression recurrence: unspecified whether recurrent Active/Remission status: remission status unspecified Qualified Code(s): F32.9 - Major depressive disorder, single episode, unspecified Is this a current diagnosis for this admission?: Yes (11) Osteoarthritis involving multiple joints on both sides of body Is this a current diagnosis for this admission?: Yes - Time Time Spent with patient: 25-34 minutes Medications reviewed and adjusted accordingly: Yes Anticipated discharge: Home with Homehealth Within: within 24 hours - Plan Summary Plan Summary: Start on Starlix 60 mg p.o bidbs for diabetes mellitus management. Maintain on IV Rocephin coverage for probable bacterial sepsis process. Plan to discontinue IV Rocephin after 3rd dose and discharge patient home.
[2018-06-04] MEDS ORDERED: NATEGLINIDE 60 MG TABLET PO ONE (20:30)
[2018-06-05 06:37] LABS: ABSOLUTE LYMPHOCYTES (AUTO) 1.9 10^3/uL (0.5-4.7); ABSOLUTE MONOCYTES (AUTO) 0.6 10^3/uL (0.1-1.4); ABSOLUTE NEUT (AUTO) 5.8 10^3/uL (1.7-8.2); BASOPHILS % (AUTO) 0.1 % (0-2); EOSINOPHILS % (AUTO) 0.1 % (0-6); HEMATOCRIT 25.2 % (36.0-47.0); HEMOGLOBIN 8.6 g/dL (12.0-15.5); LYMPHOCYTES % (AUTO) 22.4 % (13-45); MEAN CORPUSCULAR HEMOGLOBIN 29.7 pg (27.0-33.4); MEAN CORPUSCULAR HGB CONC 34.1 g/dL (32.0-36.0); MEAN CORPUSCULAR VOLUME 87 fl (80-97); MONOCYTES % (AUTO) 7.1 % (3-13); PLATELET COUNT 148 10^3/uL (150-450); RED CELL DISTRIBUTION WIDTH 14.8 % (11.5-14.0); SEGMENTED NEUTROPHILS % (AUTO) 70.3 % (42-78); TOTAL CELLS COUNTED % (AUTO) 100 %; WHITE BLOOD COUNT 8.3 10^3/uL (4.0-10.5)
[2018-06-05 07:13] LABS: ANION GAP 9 (5-19); BLOOD UREA NITROGEN 28 mg/dL (7-20); CALCIUM 8.2 mg/dL (8.4-10.2); CARBON DIOXIDE 16 mmol/L (22-30); CHLORIDE 110 mmol/L (98-107); GLUCOSE 144 mg/dL (75-110); POTASSIUM 4.7 mmol/L (3.6-5.0); SODIUM 134.8 mmol/L (137-145)
[2018-06-05] MEDS: NATEGLINIDE 60 MG TABLET PO SCH ×2 (08:31→18:17)
[2018-06-05] MEDS: NORMAL SALINE 1000 ML 1,000 ML IV PRN (08:45)
[2018-06-05] MEDS: LANSOPRAZOLE 30 MG TAB.RAP.DR PO SCH ×2 (09:12→18:17)
[2018-06-05] MEDS: NADOLOL 40 MG TABLET PO SCH (09:12)
[2018-06-05] MEDS: VALSARTAN 160 MG TABLET PO SCH ×2 (09:12→22:10)
[2018-06-05] MEDS: DULOXETINE HCL 30 MG CAPSULE.DR PO SCH (09:12)
[2018-06-05] MEDS: ENOXAPARIN SODIUM INJ 40 MG/0.4 ML DISP.SYRIN SUBCUT SCH (09:13)
[2018-06-05] MEDS: CEFTRIAXONE SODIUM 1,000 MG in NORMAL SALINE 50 ML IV SCH (09:13)
[2018-06-05] MEDS: CYCLOSPORINE 0.05% OPH EMULSIO 0.4 ML DROPERETTE OU SCH ×2 (09:13→18:17)
[2018-06-05] MEDS: MULTIVIT-STRESS FORMULA/ZINC TABLET PO SCH (09:13)
--- NOTE | 2018-06-05 12:24 | Physician Advisory Note ---
Physician Advisor ProgressNote .: [facility] to [facility], I have reviewed the medical record for this patient. Physician Advisor Statement: Please consider documentin. Hyponatremia: Acute or chronic, & Likely cause - (HCTZ? dehydration? ...) 2. Weakness: most likely cause (acute hyponatremia? dehydration? med SE? ...) 3. Sepsis: please state if this dx has been ruled out; otherwise, please document the findings (besides lactate 2.2) that support this dx. 4. microcytic anemia: most likely cause (chronic blood loss from ____? chronic dietary Fe defic? ...) Thanks! CK
--- NOTE | 2018-06-05 19:02 | PDOC PROGRESS REPORT ---
Subjective Progress Note for:: 06/05/18 Subjective:: There is some improvement in her oral intake. Family reported poor appetite and p. o intake at home. No nausea, vomiting, diarrhea or abdominal pain. She is mostly living on salad. No chest pain or difficulty with breathing. No fever or chills. Reason For Visit: GENERAL WEAKNESS,HYPONATREMIA,PROBABLE SEPSIS Physical Exam Vital Signs: Temp Pulse Resp BP Pulse Ox 98.5 F 67 18 163/57 H 98 06/05/18 07:38 06/05/18 14:00 06/05/18 07:38 06/05/18 07:38 06/05/18 07:38 Intake & Output 06/04/18 06/05/18 06/06/18 06:59 06:59 06:59 Intake Total 170 Balance 170 Physical Exam: General appearance: PRESENT: no acute distress, well-developed, well-nourished Head exam: PRESENT: atraumatic, normocephalic Eye exam: PRESENT: conjunctiva pink, EOMI, PERRLA. ABSENT: scleral icterus Ear exam: PRESENT: normal external ear exam Mouth exam: PRESENT: moist Respiratory exam: PRESENT: clear to auscultation brigida Cardiovascular exam: PRESENT: RRR. ABSENT: diastolic murmur, rubs, systolic murmur Vascular exam: PRESENT: normal capillary refill. ABSENT: pallor GI/Abdominal exam: PRESENT: normal bowel sounds, soft. ABSENT: distended, guarding, mass, organomegaly, rebound, tenderness Extremities exam: ABSENT: pedal edema Musculoskeletal exam: PRESENT: normal inspection Neurological exam: PRESENT: alert, awake, oriented to person, oriented to place , oriented to time, oriented to situation, CN II-XII grossly intact. ABSENT: motor sensory deficit Psychiatric exam: PRESENT: appropriate affect, normal mood. ABSENT: homicidal ideation, suicidal ideation Skin exam: PRESENT: dry, intact, warm. ABSENT: cyanosis, rash Results Impressions: Chest X-Ray 06/02/18 19:48 IMPRESSION: Borderline heart size with no pulmonary edema. Small hiatal hernia. Abdomen/Pelvis CT 06/02/18 21:56 IMPRESSION: No acute findings. Cirrhosis. Assessment & Plan - Diagnosis (1) General weakness Is this a current diagnosis for this admission?: Yes Plan: Most likely due to her poor food intake, dehydration, and presenting electrolyte derangement with hyponatremia. See admitting attending physician orders. (2) Hyponatremia with normal extracellular fluid volume Is this a current diagnosis for this admission?: Yes Plan: Most liked due to poor oral intake and medication induced by hydrochlorothiazide. See admitting attending physician orders. (3) Probable sepsis Is this a current diagnosis for this admission?: Yes Plan: Resolved with no bacteria growth from culture. (4) Microcytic anemia Is this a current diagnosis for this admission?: Yes Plan: Due to chronic blood loss from her esophageal varices and chronic liver disease. See attending physician orders. (5) Non-alcoholic cirrhosis Is this a current diagnosis for this admission?: Yes Plan: See attending physician orders. Continue current medication management. (6) Esophageal varices in cirrhosis Is this a current diagnosis for this admission?: Yes Plan: See attending physician orders. Continue current medication management. (7) Diabetes mellitus type 2 in nonobese Is this a current diagnosis for this admission?: Yes Plan: Maintain on Starlix therapy and Humalog insulin achs sliding scale coverage. (8) Essential hypertension Is this a current diagnosis for this admission?: Yes Plan: See attending physician orders. Continue current medication management. (9) GERD (gastroesophageal reflux disease) Qualifiers: Esophagitis presence: esophagitis presence not specified Qualified Code(s) : K21.9 - Gastro-esophageal reflux disease without esophagitis Is this a current diagnosis for this admission?: Yes Plan: See attending physician orders. Continue current medication management. (10) Depression Qualifiers: Depression Type: major depressive disorder Major depression recurrence: unspecified whether recurrent Active/Remission status: remission status unspecified Qualified Code(s): F32.9 - Major depressive disorder, single episode, unspecified Is this a current diagnosis for this admission?: Yes Plan: See attending physician orders. Continue current medication management. (11) Osteoarthritis involving multiple joints on both sides of body Is this a current diagnosis for this admission?: Yes Plan: See attending physician orders. Continue current medication management. - Time Time Spent with patient: 25-34 minutes Medications reviewed and adjusted accordingly: Yes Anticipated discharge: Home with Homehealth Within: Other - Inpatient Certification Based on my medical assessment, after consideration of the patient's comorbidities, presenting symptoms, or acuity I expect that the services needed warrant INPATIENT care.: Yes I certify that my determination is in accordance with my understanding of Medicare's requirements for reasonable and necessary INPATIENT services [42 CFR 412.3e].: Yes Medical Necessity: Need Close Monitoring Due to Risk of Patient Decompensation, Need For IV Fluids, Need For Continuous Telemetry Monitoring, Need for IV Antibiotics, Risk of Complication if Not Cared For in Hospital Post Hospital Care: D/C Customizer Documentation - Plan Summary Plan Summary: See attending physician orders. Continue current medication management. Change admission status to inpatient in view of her poor glycemic control, poor p.o intake, gradual response to her hyponatremia and dehydration. Obtain BMP in am.
[2018-06-06 07:18] LABS: ABSOLUTE MONOCYTES (AUTO) 0.6 10^3/uL (0.1-1.4); ABSOLUTE NEUT (AUTO) 7.4 10^3/uL (1.7-8.2); BASOPHILS % (AUTO) 0.1 % (0-2); EOSINOPHILS % (AUTO) 0.2 % (0-6); HEMATOCRIT 26.1 % (36.0-47.0); HEMOGLOBIN 8.9 g/dL (12.0-15.5); LYMPHOCYTES % (AUTO) 20.1 % (13-45); MEAN CORPUSCULAR HEMOGLOBIN 29.7 pg (27.0-33.4); MEAN CORPUSCULAR HGB CONC 34.3 g/dL (32.0-36.0); MEAN CORPUSCULAR VOLUME 86 fl (80-97); MONOCYTES % (AUTO) 6.1 % (3-13); PLATELET COUNT 151 10^3/uL (150-450); RED BLOOD COUNT 3.02 10^6/uL (3.72-5.28); RED CELL DISTRIBUTION WIDTH 14.9 % (11.5-14.0); SEGMENTED NEUTROPHILS % (AUTO) 73.5 % (42-78); TOTAL CELLS COUNTED % (AUTO) 100 %; WHITE BLOOD COUNT 10.1 10^3/uL (4.0-10.5)
[2018-06-06 07:33] LABS: ANION GAP 10 (5-19); BLOOD UREA NITROGEN 26 mg/dL (7-20); CALCIUM 8.2 mg/dL (8.4-10.2); CARBON DIOXIDE 15 mmol/L (22-30); CHLORIDE 109 mmol/L (98-107); GLUCOSE 139 mg/dL (75-110); POTASSIUM 4.8 mmol/L (3.6-5.0); SODIUM 134.3 mmol/L (137-145)
[2018-06-06] MEDS: ENOXAPARIN SODIUM INJ 40 MG/0.4 ML DISP.SYRIN SUBCUT SCH (10:48)
[2018-06-06] MEDS: NADOLOL 40 MG TABLET PO SCH (10:48)
[2018-06-06] MEDS: NATEGLINIDE 60 MG TABLET PO SCH ×2 (10:48→17:47)
[2018-06-06] MEDS: DULOXETINE HCL 30 MG CAPSULE.DR PO SCH (10:48)
[2018-06-06] MEDS: LANSOPRAZOLE 30 MG TAB.RAP.DR PO SCH ×2 (10:48→17:47)
[2018-06-06] MEDS: VALSARTAN 160 MG TABLET PO SCH (10:48)
[2018-06-06] MEDS: MULTIVIT-STRESS FORMULA/ZINC TABLET PO SCH (10:48)
[2018-06-06] MEDS: CYCLOSPORINE 0.05% OPH EMULSIO 0.4 ML DROPERETTE OU SCH ×2 (10:49→17:47)
[2018-06-06] MEDS: CEFTRIAXONE SODIUM 1,000 MG in NORMAL SALINE 50 ML IV SCH (10:49)
[2018-06-06] MEDS: NORMAL SALINE 1000 ML 1,000 ML IV PRN (10:55)
[2018-06-06] MEDS: INSULIN LISPRO 100 UNIT/ML 3 ML VIAL SUBCUT PRN ×2 (12:52→17:47)
--- NOTE | 2018-06-06 16:49 | PDOC DISCHARGE SUMMARY ---
General - Admit/Disc Date/PCP Admission Date/Primary Care Provider: 06/05/18 09:04 ALISSA MCKEON Discharge Date: 06/06/18 - Discharge Diagnosis (1) General weakness Is this a current diagnosis for this admission?: Yes (2) Hyponatremia with normal extracellular fluid volume Is this a current diagnosis for this admission?: Yes (3) Probable sepsis Is this a current diagnosis for this admission?: Yes (4) Microcytic anemia Is this a current diagnosis for this admission?: Yes (5) Non-alcoholic cirrhosis Is this a current diagnosis for this admission?: Yes (6) Esophageal varices in cirrhosis Is this a current diagnosis for this admission?: Yes (7) Diabetes mellitus type 2 in nonobese Is this a current diagnosis for this admission?: Yes (8) Essential hypertension Is this a current diagnosis for this admission?: Yes (9) GERD (gastroesophageal reflux disease) Is this a current diagnosis for this admission?: Yes (10) Depression Is this a current diagnosis for this admission?: Yes (11) Osteoarthritis involving multiple joints on both sides of body Is this a current diagnosis for this admission?: Yes - Additional Information Resuscitation Status: Full Code Prescriptions: Multivit-Stress Formula/Zinc [Zbec Tablet] 1 tab PO DAILY #30 tablet Nateglinide [Starlix 60 mg Tablet] 60 mg PO BIDBS #60 tablet Home Medications: Cyclosporine 0.05% Oph Emulsio [Restasis 0.05% Oph Emulsion Pf 0.4 ml] 1 drop OU BID 06/03/18 Duloxetine HCl [Cymbalta] 60 mg PO DAILY 06/03/18 Nadolol [Corgard 40 mg Tablet] 40 mg PO DAILY 06/03/18 Ondansetron HCl [Zofran 4 mg Tablet] 4 mg PO Q4HP PRN 06/03/18 Tramadol HCl [Ultram 50 mg Tablet] 50 mg PO Q6HP PRN 06/03/18 Valsartan [Diovan 160 mg Tablet] 160 mg PO Q12 06/03/18 Multivit-Stress Formula/Zinc [Zbec Tablet] 1 tab PO DAILY #30 tablet 06/06/18 Nateglinide [Starlix 60 mg Tablet] 60 mg PO BIDBS #60 tablet 06/06/18 History of Present Illness History of Present Illness: GIOVANNY RODRÍGUEZ is a 78 year old female known to my practice who was brought to the ED via EMS service following incident of loss of strength and laying on the floor with difficulty getting up and inability of family to transfer her from the floor led to EMS activation and subsequent transfer to the ED. Patient reported worsening generalized weakness over last several days. She denied any chest pain or difficulty with breathing. No associated fever or chills. No nausea, vomiting, melena, hematochezia, hematemesis, diarrhea or abdominal pain. Patient admitted to poor p.o intake and appetite related to generalized weakness and lack of strength to feed herself. Her initial ED evaluation was unrevealing except for altered mental status, generalized weakness, and low serum sodium level. Due to her overt weakness, altered mental status, and hyponatremia she was advised hospitalization for further evaluation and management. 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 Hospital Course Hospital Course: Patient was treated with IV fluid normal saline infusion and IV antibiotic for hyponatremia and probable sepsis. She responded to treatment and participate in physical therapy. Her serum glucose and POC glucose monitoring revealed persistent hyperglycemia necessitating use of Starlix for hyperglycemia management. She will be discharged home on same medication. Her hospitalization revealed her poor oral food intake which her family, spouse and sister confirmed. Patient was seen by medical esthetician and instructed on proper intake. She was started on Zbec multivitamin to improve her oral intake. Physical Exam Vital Signs: Temp Pulse Resp BP Pulse Ox 98.7 F 69 13 136/48 H 100 06/06/18 12:07 06/06/18 14:00 06/06/18 12:07 06/06/18 12:07 06/06/18 12:07 Intake & Output 06/05/18 06/06/18 06/07/18 06:59 06:59 06:59 Intake Total 2019 272 Balance 2019 272 Weight 64.3 kg Physical Exam: General appearance: PRESENT: no acute distress, well-developed, well-nourished Head exam: PRESENT: atraumatic, normocephalic Eye exam: PRESENT: conjunctiva pink, EOMI, PERRLA. ABSENT: scleral icterus Ear exam: PRESENT: normal external ear exam Mouth exam: PRESENT: moist Respiratory exam: PRESENT: clear to auscultation brigida Cardiovascular exam: PRESENT: RRR. ABSENT: diastolic murmur, rubs, systolic murmur Vascular exam: PRESENT: normal capillary refill. ABSENT: pallor GI/Abdominal exam: PRESENT: normal bowel sounds, soft. ABSENT: distended, guarding, mass, organomegaly, rebound, tenderness Extremities exam: ABSENT: pedal edema Musculoskeletal exam: PRESENT: normal inspection Neurological exam: PRESENT: alert, awake, oriented to person, oriented to place , oriented to time, oriented to situation, CN II-XII grossly intact. ABSENT: motor sensory deficit Psychiatric exam: PRESENT: appropriate affect, normal mood. ABSENT: homicidal ideation, suicidal ideation Skin exam: PRESENT: dry, intact, warm. ABSENT: cyanosis, rash Results Laboratory Results: 06/06/18 06:06 06/06/18 06:06 06/06/18 06/06/18 06:06 06:06 WBC 10.1 RBC 3.02 L Hgb 8.9 L Hct 26.1 L MCV 86 MCH 29.7 MCHC 34.3 RDW 14.9 H Plt Count 151 Seg Neutrophils % 73.5 Lymphocytes % 20.1 Monocytes % 6.1 Eosinophils % 0.2 Basophils % 0.1 Absolute Neutrophils 7.4 Absolute Lymphocytes 2.0 Absolute Monocytes 0.6 Absolute Eosinophils 0.0 Absolute Basophils 0.0 Sodium 134.3 L Potassium 4.8 Chloride 109 H Carbon Dioxide 15 L Anion Gap 10 BUN 26 H Creatinine 0.71 Est GFR ( Amer) > 60 Est GFR (Non-Af Amer) > 60 Glucose 139 H Calcium 8.2 L Impressions: Chest X-Ray 06/02/18 19:48 IMPRESSION: Borderline heart size with no pulmonary edema. Small hiatal hernia. Abdomen/Pelvis CT 06/02/18 21:56 IMPRESSION: No acute findings. Cirrhosis. Qualifiers - * PATIENT BEING DISCHARGED WITH ANY OF THE FOLLOWING DIAGNOSIS: No Plan Discharge Plan: Patient will be discharged home today with [facility] services for visiting nurse, interpersonal communications professor and physical therapy services. She will follow up in the office as instructed upon discharge.
[2018-06-06 17:42] VITALS: BP 159/60
== END 2018-06-06 18:31 | disposition home health service (06) | DRG 641 ==
LOC: ER 19:34 → EH 06-03 01:05 → 3S 06-03 03:51 → OBSVTOIN 06-05 09:04
PROVIDERS: ADMIT Internal Medicine Geriatric Medicine; ATTEND Internal Medicine Geriatric Medicine
DX: E87.1 Hypo-osmolality and hyponatremia (principal); I85.10 Secondary esophageal varices without bleeding; D50.9 Iron deficiency anemia, unspecified; K74.69 Other cirrhosis of liver; E11.9 Type 2 diabetes mellitus without complications; I10 Essential (primary) hypertension; K21.9 Gastro-esophageal reflux disease without esophagitis; F32.9 Major depressive disorder, single episode, unspecified; M15.3 Secondary multiple arthritis; E11.65 Type 2 diabetes mellitus with hyperglycemia; K44.9 Diaphragmatic hernia without obstruction or gangrene; M81.0 Age-related osteoporosis without current pathological fracture; M40.294 Other kyphosis, thoracic region; G89.4 Chronic pain syndrome; Z79.899 Other long term (current) drug therapy; Z90.710 Acquired absence of both cervix and uterus; Z88.6 Allergy status to analgesic agent; Z88.3 Allergy status to other anti-infective agents; Z91.030 Bee allergy status; Z91.041 Radiographic dye allergy status; Z83.3 Family history of diabetes mellitus; Z82.3 Family history of stroke
CPT/HCPCS: 36415; 51701; 71045; 74176; 80048; 80053; 81001; 82272; 82803; 82962; 83036; 83605; 83735; 84484; 85025; 85027; 87086; 93005; 93010; 96361; 96374; 99285; G0378; G8978-GP; G8979-GP; J0696; J1650; J1815; J2405; J3490; J7030; J7120

== ENCOUNTER 2018-06-23 23:52 | Emergency (ER) | payer MEDICARE, OTHER ==
[2018-06-23] MEDS ORDERED: NORMAL SALINE 500 ML with OCTREOTIDE ACETATE 500 MCG IV PRN ×2 (23:57)
[2018-06-23] MEDS ORDERED: OCTREOTIDE ACETATE INJ/PF 100 MCG/1 ML SDV IV ONE (23:57)
--- NOTE | 2018-06-24 00:02 | ER Document Report ---
ED General - General Stated Complaint: VOMITING Time Seen by Provider: 06/23/18 23:57 Notes: Patient is an 78-year-old female presents with complaint of vomiting blood. She vomited blood twice tonight and called an ambulance. She has a history of esophageal varices. She denies abdominal pain. No fevers. She has history of cirrhosis of the liver. Cause of cirrhosis is unclear per her history. She is not on any blood thinners. She said she felt very weak during these episodes and continues to feel somewhat weak now. No other complaints at this time. TRAVEL OUTSIDE OF THE [place] IN LAST 30 DAYS: No - Related Data Allergies/Adverse Reactions: codeine [Codeine] Allergy (Intermediate, Verified 06/02/18 20:03) VOMITING meperidine HCl [From Demerol] Allergy (Intermediate, Verified 06/02/18 20:03) n/v Iodinated Contrast- Oral and IV Dye [Iodinated Contrast Media - IV Dye] Allergy (Mild, Verified 06/02/18 20:03) Itching levofloxacin [From Levaquin] Allergy (Mild, Verified 06/02/18 20:03) itching fentanyl Adverse Reaction (Verified 06/02/18 20:03) "can't wake up" BEE STINGS Allergy (Uncoded 06/02/18 20:03) Anaphylaxis Past Medical History - Social History Smoking Status: Never Smoker Frequency of alcohol use: None Drug Abuse: None Family History: Reviewed & Not Pertinent - Past Medical History Cardiac Medical History: Reports: Hx Hypertension, Hx Heart Murmur Denies: Hx Coronary Artery Disease, Hx Heart Attack Pulmonary Medical History: Reports: Hx Pneumonia - hx of Denies: Hx Asthma, Hx Bronchitis, Hx COPD Neurological Medical History: Denies: Hx Cerebrovascular Accident, Hx Seizures Endocrine Medical History: Reports: Hx Diabetes Mellitus Type 2 Renal/ Medical History: Denies: Hx Peritoneal Dialysis GI Medical History: Reports: Hx Diverticulitis, Hx Gastroesophageal Reflux Disease. Denies: Hx Hepatitis, Hx Hiatal Hernia, Hx Ulcer Musculoskeletal Medical History: Reports Hx Arthritis - HANDS, BACK Psychiatric Medical History: Reports: Hx Depression Infectious Medical History: Denies: Hx Hepatitis Past Surgical History: Reports: Hx Hysterectomy, Hx Orthopedic Surgery - Back surgery. Denies: Hx Mastectomy, Hx Open Heart Surgery, Hx Pacemaker - Immunizations Hx Diphtheria, Pertussis, Tetanus Vaccination: Yes Hx Pneumococcal Vaccination: 10/21/15 Review of Systems - Review of Systems Notes: My Normal Review Basic REVIEW OF SYSTEMS: CONSTITUTIONAL : Denies fever, chills, or sweats. Denies recent illness. EENT: Denies eye, ear, throat, or mouth pain or symptoms. Denies nasal or sinus congestion. CARDIOVASCULAR: Denies chest pain. RESPIRATORY: Denies cough, cold, or chest congestion. Denies shortness of breath, difficulty breathing, or wheezing. GASTROINTESTINAL: Denies abdominal pain. vomiting of blood MUSCULOSKELETAL: Denies neck or back pain or joint pain or swelling. SKIN: Denies rash or skin lesions. HEMATOLOGIC : Denies easy bruising or bleeding. NEUROLOGICAL: Denies altered mental status or loss of consciousness. Denies headache. Denies weakness or paralysis or loss of use of either side. Denies problems with gait or speech. Denies sensory or motor loss. ALL OTHER SYSTEMS REVIEWED AND NEGATIVE. Physical Exam - Vital signs Vitals: Resp 15 06/24/18 00:00 - Notes Notes: General Appearance: Well nourished, alert, cooperative, no acute distress, no obvious discomfort. Patient is a little bit weak appearing. Vitals: reviewed, See vital signs table. Eyes: PERRL, EOMI, Conjuctiva clear Mouth: No decreasd moisture Throat: No tonsillar inflammation, No airway obstruction, No lymphadenopathy Neck: Supple, no neck tenderness, No thyromegaly Lungs: No wheezing, No rales, No rhonci, No accessory muscle use, good air exchange bilaterally. Heart: Normal rate, Regular rythm, No murmur, no rub Abdomen: Normal BS, soft, No rigidity, No abdominal tenderness, No guarding, no rebound, Extremities: good pulses in all extremities, no swelling or tenderness in the extremities, no edema. Neuro: speech clear, oriented x 3, normal affect, responds appropriately to questions. Course - Re-evaluation Re-evalutation: 06/24/18 00:32 Patient still has not had any further vomiting at this time. Patient will be continued be monitored. 06/24/18 02:03 Patient did have one more episode of vomiting. There was some blood in emesis. She was given Zofran and has not vomited since. Labs are back. Blood is being processed now will be started soon. Family wants patient cared by Dr. Rubin. I did try to call Dr. Rubin total of 2 times. There is no answer. Informed family that we have no GI coverage for the next several days and therefore we should transfer. They are understanding of this but requested to try Dr. Rubin more time. I did call again and leave a message. He is not on- call and therefore is not surprising that there is no answer to his phone. I informed the family that we should consider transferring and they are now agreeable to that. They request to be transferred to [facility] in [place]. I have called [facility] transfer center they said they will call me back with the hospitalist. 06/24/18 02:[address] Moo Fan, hospitalist at [facility], who agrees to accept the patient is transferred. He recommends that we transfer the patient the 2 units of blood. I informed the nurse of this. Both units will be going shortly and then patient will be transferred. 06/24/18 05:16 On reevaluation patient's is well-appearing. She is resting comfortably. Her heart rate and blood pressure are normal. She fortunately has not had any further vomiting of blood since she lasted around 2 AM. Transport should be here in 10 minutes. Patient is medically stable for transfer. Dictation of this chart was performed using voice recognition software; therefore, there may be some unintended grammatical errors. - Vital Signs Vital signs: Temp Pulse Resp BP Pulse Ox 98.3 F 88 13 147/70 H 96 06/24/18 04:58 06/24/18 04:09 06/24/18 04:58 06/24/18 04:58 06/24/18 04:58 - Laboratory Result Diagrams: 06/24/18 00:32 06/24/18 00:32 Laboratory results interpreted by me: 06/24/18 06/24/18 06/24/18 00:32 00:32 00:32 RBC 2.49 L Hgb 7.4 L Hct 22.1 L RDW 15.9 H Chloride 110 H Carbon Dioxide 21 L BUN 26 H Glucose 61 L AST 62 H ALT 57 H Alkaline Phosphatase 198 H Albumin 3.0 L Crossmatch See Detail Discharge - Discharge Clinical Impression: Esophageal varices in cirrhosis GI bleed Qualifiers: GI bleed type/associated pathology: unspecified gastrointestinal hemorrhage type Qualified Code(s): K92.2 - Gastrointestinal hemorrhage, unspecified Condition: Stable Disposition: [facility] Referrals: ALISSA MCKEON MD [Primary Care Provider] - Follow up as needed
--- NOTE | 2018-06-24 00:29 | RADIOLOGY REPORT (SQ) ---
XR CHEST 1 VIEW HISTORY: Hematemesis. COMPARISON: 06/02/2018 FINDINGS/IMPRESSION: Mild cardiomegaly with pulmonary vascular congestion. Elevation of the right hemidiaphragm. Atelectasis at the right lung base. No large pleural effusion is seen. No acute osseous findings.
[2018-06-24] MEDS ORDERED: OCTREOTIDE ACETATE INJ/PF 100 MCG/1 ML SDV IV PRN (00:41)
[2018-06-24 00:50] LABS: INTERNATIONAL RATION (INR) 1.02; PROTHROMBIN TIME 13.9 SEC (11.4-15.4)
[2018-06-24 00:51] LABS: ABSOLUTE EOSINOPHILS # (AUTO) 0.4 10^3/uL (0.0-0.6); ABSOLUTE LYMPHOCYTES (AUTO) 2.1 10^3/uL (0.5-4.7); ABSOLUTE MONOCYTES (AUTO) 0.7 10^3/uL (0.1-1.4); ABSOLUTE NEUT (AUTO) 3.2 10^3/uL (1.7-8.2); BASOPHILS % (AUTO) 0.6 % (0-2); EOSINOPHILS % (AUTO) 5.8 % (0-6); HEMATOCRIT 22.1 % (36.0-47.0); MEAN CORPUSCULAR HEMOGLOBIN 29.7 pg (27.0-33.4); MEAN CORPUSCULAR HGB CONC 33.5 g/dL (32.0-36.0); MEAN CORPUSCULAR VOLUME 89 fl (80-97); MONOCYTES % (AUTO) 11.2 % (3-13); PARTIAL THROMBOPLASTIN TIME 31.4 SEC (23.5-35.8); PLATELET COUNT 194 10^3/uL (150-450); RED BLOOD COUNT 2.49 10^6/uL (3.72-5.28); RED CELL DISTRIBUTION WIDTH 15.9 % (11.5-14.0); SEGMENTED NEUTROPHILS % (AUTO) 49.4 % (42-78); TOTAL CELLS COUNTED % (AUTO) 100 %; WHITE BLOOD COUNT 6.4 10^3/uL (4.0-10.5)
[2018-06-24 00:58] LABS: HEMOGLOBIN 7.4 g/dL (12.0-15.5)
[2018-06-24] MEDS ORDERED: NORMAL SALINE 250 ML IV PRN (01:00)
[2018-06-24 01:02] LABS: ALANINE AMINOTRANSFERASE 57 U/L (9-52); ALKALINE PHOSPHATASE 198 U/L (38-126); ANION GAP 9 (5-19); ASPARTATE AMINO TRANSFERASE 62 U/L (14-36); BILIRUBIN,DIRECT 0.2 mg/dL (0.0-0.4); BILIRUBIN,TOTAL 0.5 mg/dL (0.2-1.3); BLOOD UREA NITROGEN 26 mg/dL (7-20); CALCIUM 8.6 mg/dL (8.4-10.2); CARBON DIOXIDE 21 mmol/L (22-30); CHLORIDE 110 mmol/L (98-107); GLUCOSE 61 mg/dL (75-110); POTASSIUM 4.3 mmol/L (3.6-5.0); SODIUM 139.9 mmol/L (137-145); TOTAL PROTEIN 6.3 g/dL (6.3-8.2)
[2018-06-24] MEDS ORDERED: ONDANSETRON HCL INJ/PF 4 MG/2 ML SDV IV ONE (01:19)
[2018-06-24 05:38] VITALS: BP 150/62
== END 2018-06-24 05:45 | disposition short-term general hospital (02) ==
LOC: ER 23:52
DX: I85.10 Secondary esophageal varices without bleeding (principal); K74.60 Unspecified cirrhosis of liver; K92.2 Gastrointestinal hemorrhage, unspecified; R11.10 Vomiting, unspecified; R53.1 Weakness; I10 Essential (primary) hypertension; E11.9 Type 2 diabetes mellitus without complications
CPT/HCPCS: 99291; 96365; 96366; 86900; 86901; 36415; 36430; 86850; 85025; 85610; 85730; 80053; 86920; 71045; P9016; J2354; J2405

== ENCOUNTER 2018-07-20 10:48 | Inpatient (IN) | payer MEDICARE, OTHER ==
[2018-07-20] MEDS ORDERED: NORMAL SALINE 1000 ML 1,000 ML IV ONE (11:15)
--- NOTE | 2018-07-20 11:26 | ER Document Report ---
ED General - General Stated Complaint: WEAKNESS Time Seen by Provider: 07/20/18 11:10 Notes: Patient was brought in by EMS for evaluation of extreme weakness. She has been having generalized weakness for the past week. It has gotten particularly bad in the past couple of days. Patient says she is unable to stand or walk. She supposedly has no appetite and has not eaten well for several days. Has a history of a similar presentation admitted here this past May, about 6 weeks ago and she was found to be anemic and hyponatremic. EMS reported the patient supposedly has altered mental status, but she is able to provide me with what appears to be a very accurate history when compared to previous records that we have on file. Patient has a history of nonalcoholic cirrhosis with esophageal varices and a hemorrhage about 2 years ago that required surgery. Also history of hypertension, GERD, NIDDM, back surgery, depression Further information from family who just arrived: Patient was seen here on 06/23, just approximately 4 weeks ago. She had bleeding from her esophageal varices and was transferred from here to [facility] in [place]. Family says she was just discharged from there 12 days ago. TRAVEL OUTSIDE OF THE [place] IN LAST 30 DAYS: No - Related Data Allergies/Adverse Reactions: codeine [Codeine] Allergy (Intermediate, Verified 06/02/18 20:03) VOMITING meperidine HCl [From Demerol] Allergy (Intermediate, Verified 06/02/18 20:03) n/v Iodinated Contrast- Oral and IV Dye [Iodinated Contrast Media - IV Dye] Allergy (Mild, Verified 06/02/18 20:03) Itching levofloxacin [From Levaquin] Allergy (Mild, Verified 06/02/18 20:03) itching fentanyl Adverse Reaction (Verified 06/02/18 20:03) "can't wake up" BEE STINGS Allergy (Uncoded 06/02/18 20:03) Anaphylaxis Past Medical History - Social History Smoking Status: Unknown if Ever Smoked Frequency of alcohol use: None Family History: Reviewed & Not Pertinent - Past Medical History Cardiac Medical History: Reports: Hx Hypertension, Hx Heart Murmur Pulmonary Medical History: Reports: Hx Pneumonia - hx of Endocrine Medical History: Reports: Hx Diabetes Mellitus Type 2 GI Medical History: Reports: Hx Diverticulitis, Hx Gastroesophageal Reflux Disease. Denies: Hx Hepatitis, Hx Hiatal Hernia, Hx Ulcer Musculoskeletal Medical History: Reports Hx Arthritis - HANDS, BACK Psychiatric Medical History: Reports: Hx Depression Infectious Medical History: Denies: Hx Hepatitis Past Surgical History: Reports: Hx Hysterectomy, Hx Orthopedic Surgery - Back surgery, Other - Surgery for GI bleeding secondary to esophageal varices secondary to cirrho - Immunizations Hx Diphtheria, Pertussis, Tetanus Vaccination: Yes Hx Pneumococcal Vaccination: 10/21/15 Review of Systems - Review of Systems Notes: REVIEW OF SYSTEMS: CONSTITUTIONAL : Denies fever. Complains of severe weakness all over. EENT: Denies eye, ear, nose or mouth or throat pain or other symptoms. CARDIOVASCULAR: Denies chest pain. RESPIRATORY: Denies cough, chest congestion, or shortness of breath. GASTROINTESTINAL: Denies abdominal pain or nausea, vomiting, or diarrhea. GENITOURINARY: Denies difficulty or painful urinating, urinary frequency, blood in urine. Patient is noted her urine to be very dark over the last couple of days. MUSCULOSKELETAL: Denies back or neck pain. Denies joint pain or swelling. SKIN: Denies rash or skin lesions. NEUROLOGICAL: Denies LOC or altered mental status. Denies headache. Denies sensory loss or motor deficits. ALL OTHER SYSTEMS REVIEWED AND NEGATIVE. Physical Exam - Vital signs Vitals: Temp Resp BP Pulse Ox 97.8 F 14 149/58 H 99 07/20/18 11:00 07/20/18 11:00 07/20/18 11:07/20/18 11:00 Interpretation: Normal - Notes Notes: PHYSICAL EXAMINATION: GENERAL: Well-appearing, in no acute distress. Answers questions and what seems to be an appropriate manner and correctly. HEAD: Atraumatic, normocephalic. EYES: Pupils equal round and reactive to light, extraocular movements intact. ENT: oropharynx clear without exudates. Very dry oral mucous membranes. NECK: Normal range of motion, supple. LUNGS: Breath sounds clear and equal bilaterally. HEART: Regular rate and rhythm without murmurs. ABDOMEN: Soft, nontender. No guarding or rebound. No masses. BACK: No tenderness throughout entire back. EXTREMITIES: Normal range of motion without pain. NEUROLOGICAL: Normal speech, although soft and quiet. Unable to stand or walk. Grossly normal sensory, motor, and reflex exams. Awake, alert. PSYCH: Normal mood, normal affect. SKIN: Warm, dry, no rashes. Course - Re-evaluation Re-evalutation: 07/20/18 12:55 Patient's labs suggest mild dehydration with slightly decreased sodium and bicarb levels. BUN is slightly elevated. Urine has 8 white cells from a catheterized specimen. I have ordered a culture of her urine. White cell count is normal. Hemoglobin is 12. No evidence of GI bleeding from these labs. Patient is willing and trying to take some oral fluids now. I have spoken with Dr. Mckeon who agrees to admit the patient to telemetry for observation and overnight fluids before sending her home tomorrow likely. - Vital Signs Vital signs: Temp Pulse Resp BP Pulse Ox 97.8 F 15 149/58 H 99 07/20/18 11:00 07/20/18 11:01 07/20/18 11:00 07/20/18 11:01 - Laboratory Result Diagrams: 07/20/18 10:50 07/20/18 10:50 Laboratory results interpreted by me: 07/20/18 07/20/18 07/20/18 10:50 10:50 10:50 RDW 17.6 H Sodium 134.9 L Carbon Dioxide 19 L BUN 28 H Glucose 160 H AST 67 H ALT 67 H Alkaline Phosphatase 144 H Ammonia < 8.7 L Albumin 3.0 L Urine Glucose (UA) Urine Urobilinogen Urine Ascorbic Acid 07/20/18 11:25 RDW Sodium Carbon Dioxide BUN Glucose AST ALT Alkaline Phosphatase Ammonia Albumin Urine Glucose (UA) 50 H Urine Urobilinogen 4.0 H Urine Ascorbic Acid 40 H - Diagnostic Test Radiology results interpreted by me: 07/20/18 12:57 Chest x-ray is without any acute findings. Normal chest x-ray. - EKG Interpretation by Tx EKG shows normal: Sinus rhythm Rate: Normal Rhythm: NSR Ralph/QRS: LBBB When compared to previous EKG there are: No significant change Discharge - Discharge Clinical Impression: Weakness, Dehydration, Hyponatremia Condition: Stable Disposition: ADMITTED OBSERVATION Admitting Provider: Meenakshi Unit Admitted: Telemetry Referrals: ALISSA MCKEON MD [Primary Care Provider] - Follow up as needed
[2018-07-20 11:33] LABS: ABSOLUTE LYMPHOCYTES (AUTO) 1.9 10^3/uL (0.5-4.7); ABSOLUTE MONOCYTES (AUTO) 0.6 10^3/uL (0.1-1.4); ABSOLUTE NEUT (AUTO) 5.2 10^3/uL (1.7-8.2); BASOPHILS % (AUTO) 0.1 % (0-2); HEMATOCRIT 37.2 % (36.0-47.0); HEMOGLOBIN 12.6 g/dL (12.0-15.5); LYMPHOCYTES % (AUTO) 24.8 % (13-45); MEAN CORPUSCULAR HEMOGLOBIN 29.2 pg (27.0-33.4); MEAN CORPUSCULAR HGB CONC 33.8 g/dL (32.0-36.0); MEAN CORPUSCULAR VOLUME 86 fl (80-97); MONOCYTES % (AUTO) 8.4 % (3-13); PLATELET COUNT 172 10^3/uL (150-450); RED BLOOD COUNT 4.31 10^6/uL (3.72-5.28); RED CELL DISTRIBUTION WIDTH 17.6 % (11.5-14.0); SEGMENTED NEUTROPHILS % (AUTO) 66.7 % (42-78); TOTAL CELLS COUNTED % (AUTO) 100 %; WHITE BLOOD COUNT 7.7 10^3/uL (4.0-10.5)
[2018-07-20 11:34] LABS: INTERNATIONAL RATION (INR) 1.14; PROTHROMBIN TIME 15.2 SEC (11.4-15.4)
[2018-07-20 11:41] LABS: ALANINE AMINOTRANSFERASE 67 U/L (9-52); ALKALINE PHOSPHATASE 144 U/L (38-126); ANION GAP 10 (5-19); ASPARTATE AMINO TRANSFERASE 67 U/L (14-36); BILIRUBIN,DIRECT 0.4 mg/dL (0.0-0.4); BLOOD UREA NITROGEN 28 mg/dL (7-20); CALCIUM 8.9 mg/dL (8.4-10.2); CARBON DIOXIDE 19 mmol/L (22-30); CHLORIDE 106 mmol/L (98-107); CREATINE KINASE 48 U/L (30-135); GLUCOSE 160 mg/dL (75-110); LIPASE 72.8 U/L (23-300); POTASSIUM 4.2 mmol/L (3.6-5.0); SODIUM 134.9 mmol/L (137-145); TOTAL PROTEIN 6.4 g/dL (6.3-8.2)
[2018-07-20 11:42] LABS: APPEARANCE,URINE CLEAR; BILIRUBIN,URINE NEGATIVE (NEGATIVE); COLOR,URINE YELLOW; GLUCOSE, URINE 50 mg/dL (NEGATIVE); KETONES,URINE NEGATIVE (NEGATIVE); LEUKOCYTE ESTERASE,URINE NEGATIVE (NEGATIVE); NITRITE,URINE NEGATIVE (NEGATIVE); PROTEIN,URINE NEGATIVE (NEGATIVE)
[2018-07-20 11:54] LABS: URINE AMPHETAMINES SCREEN NEGATIVE; URINE BARBITURATES SCREEN NEGATIVE; URINE BENZODIAZEPINES SCREEN NEGATIVE; URINE COCAINE SCREEN NEGATIVE; URINE MARIJUANA (THC) SCREEN NEGATIVE; URINE METHADONE SCREEN NEGATIVE; URINE PHENCYCLIDINE SCREEN NEGATIVE
--- NOTE | 2018-07-20 12:10 | RADIOLOGY REPORT (SQ) ---
EXAM DESCRIPTION: CHEST SINGLE VIEW COMPLETED DATE/TIME: 07/20/2018 11:54 am REASON FOR STUDY: Extreme weakness COMPARISON: 06/24/2018. NUMBER OF VIEWS: One view. TECHNIQUE: Single frontal radiographic view of the chest acquired. LIMITATIONS: None. FINDINGS: LUNGS AND PLEURA: Low lung volumes. Mild subsegmental atelectasis in the lingula. No pne umothorax. No developing pneumonia or overt congestive failure. MEDIASTINUM AND HILAR STRUCTURES: Stable contours. HEART AND VASCULAR STRUCTURES: Stable heart size. BONES: Osteopenic without suggestion of fracture. HARDWARE: None in the chest. OTHER: No other significant finding. IMPRESSION: Low lung volumes. No acute cardiopulmonary disease suggested. TECHNICAL DOCUMENTATION: JOB ID: [id number] [employer]- All Rights Reserved Reading location - IP/workstation name: [email or web address]
[2018-07-20] MEDS ORDERED: DEXTROSE 50%-WATER SYRINGE 12.5 GM/25 ML DOSE IV PRN (15:39)
[2018-07-20] MEDS ORDERED: DEXTROSE 50%-WATER SYRINGE 25 GM/50 ML DOSE IV PRN (15:39)
[2018-07-20] MEDS ORDERED: DEXTROSE 40% GEL 15 GM TUBE PO PRN (15:39)
[2018-07-20] MEDS ORDERED: DEXTROSE 40% GEL 15 GM TUBE X 2 PO PRN (15:39)
[2018-07-20] MEDS ORDERED: GLUCAGON,HUMAN RECOMB 1 MG INJ IM PRN (15:39)
[2018-07-20] MEDS ORDERED: NORMAL SALINE 1000 ML 1,000 ML IV PRN (15:39)
[2018-07-20] MEDS ORDERED: ONDANSETRON HCL INJ/PF 4 MG/2 ML SDV IV PRN (15:44)
[2018-07-20] MEDS ORDERED: (PENDING PHARMACY ID) (Ondansetron Hcl [Zofran 4 Mg Tablet] 4 MG) PO PRN (15:54)
[2018-07-20] MEDS ORDERED: ONDANSETRON 4 MG TAB.RAPDIS PO PRN (15:57)
[2018-07-20] MEDS: LANSOPRAZOLE 30 MG TAB.RAP.DR PO SCH (16:13)
--- NOTE | 2018-07-20 16:54 | EKG REPORT ---
SEVERITY:- ABNORMAL ECG - SINUS RHYTHM LEFT BUNDLE BRANCH BLOCK : Confirmed by: Gwendolyn Hickman MD 20-Jul-2018 16:53:45
[2018-07-20] MEDS: CYCLOSPORINE 0.05% OPH EMULSIO 0.4 ML DROPERETTE OU SCH (17:13)
[2018-07-20] MEDS: DULOXETINE HCL 30 MG CAPSULE.DR PO SCH (21:47)
[2018-07-21 06:05] LABS: ABSOLUTE LYMPHOCYTES (AUTO) 1.7 10^3/uL (0.5-4.7); ABSOLUTE MONOCYTES (AUTO) 0.5 10^3/uL (0.1-1.4); ABSOLUTE NEUT (AUTO) 5.2 10^3/uL (1.7-8.2); BASOPHILS % (AUTO) 0.1 % (0-2); HEMATOCRIT 35.7 % (36.0-47.0); HEMOGLOBIN 12.3 g/dL (12.0-15.5); LYMPHOCYTES % (AUTO) 23.4 % (13-45); MEAN CORPUSCULAR HEMOGLOBIN 29.6 pg (27.0-33.4); MEAN CORPUSCULAR HGB CONC 34.3 g/dL (32.0-36.0); MEAN CORPUSCULAR VOLUME 86 fl (80-97); MONOCYTES % (AUTO) 6.8 % (3-13); PLATELET COUNT 150 10^3/uL (150-450); RED BLOOD COUNT 4.14 10^6/uL (3.72-5.28); RED CELL DISTRIBUTION WIDTH 17.5 % (11.5-14.0); SEGMENTED NEUTROPHILS % (AUTO) 69.7 % (42-78); TOTAL CELLS COUNTED % (AUTO) 100 %; WHITE BLOOD COUNT 7.5 10^3/uL (4.0-10.5)
[2018-07-21 06:31] LABS: ALANINE AMINOTRANSFERASE 68 U/L (9-52); ALBUMIN 2.6 g/dL (3.5-5.0); ALKALINE PHOSPHATASE 121 U/L (38-126); ANION GAP 8 (5-19); ASPARTATE AMINO TRANSFERASE 68 U/L (14-36); BILIRUBIN,DIRECT 0.3 mg/dL (0.0-0.4); BLOOD UREA NITROGEN 23 mg/dL (7-20); CALCIUM 8.3 mg/dL (8.4-10.2); CARBON DIOXIDE 17 mmol/L (22-30); CHLORIDE 109 mmol/L (98-107); GLUCOSE 146 mg/dL (75-110); POTASSIUM 4.2 mmol/L (3.6-5.0); SODIUM 134.1 mmol/L (137-145); TOTAL PROTEIN 5.7 g/dL (6.3-8.2)
[2018-07-21] MEDS: LANSOPRAZOLE 30 MG TAB.RAP.DR PO SCH ×2 (08:43→17:09)
--- NOTE | 2018-07-21 09:11 | Physician Advisory Note ---
Physician Advisor ProgressNote .: Pursuant to the plan for Mamadou [facility], I have reviewed the medical record for this patient. Physician Advisor Statement: Please consider documenting, if you agree: 1. Any concerns that make attg give IVF at more cautious rate than otherwise would (suspecting stiffer arteries/chr diast CHF in this very elderly pt, or ... ?) 2. "suspected protein-calorie malnutrition [state mild, mod, or severe] with BMI 24.2, loss of appetite & decreased po intake," [if possible, give specifics on intake, wt loss, loss of SQ fat & muscle mass, diminished hand sock examiner strength, & clinical importance such as (A) nutritional assessment ordered, (B) modified diet or supplements ordered, (C) additional labs ordered, (D) prolonged wound healing time, (E) delayed infxn clearance] Status: 78yo Medicare pt, approp.ly brought in as Obs status for dehydration/ mild hyponatremia. Given IVF at very cautious rate of 75ml/hr. After 1MN of hospital care, hyponatremia appears worse instead of better, with what may be a worsened acute metabolic acidosis and continued dehydration. If pt is not felt to be safe for d/c later today, please document attending concerns/continued clinical issues. Depending on severity of illness & intensity of service, pt may becomes appropriate for Inpt status. Thanks! CK
[2018-07-21] MEDS ORDERED: (PENDING PHARMACY ID) (Irbesartan [Avapro] 150 MG) PO SCH (10:00)
[2018-07-21] MEDS: LOSARTAN POTASSIUM 50 MG TABLET PO SCH (10:01)
[2018-07-21] MEDS: CYCLOSPORINE 0.05% OPH EMULSIO 0.4 ML DROPERETTE OU SCH ×2 (10:02→17:09)
[2018-07-21] MEDS: AMLODIPINE BESYLATE 5 MG TABLET PO SCH (10:02)
[2018-07-21] MEDS: NADOLOL 40 MG TABLET PO SCH (10:02)
[2018-07-21] MEDS: MULTIVIT-STRESS FORMULA/ZINC TABLET PO SCH (10:02)
[2018-07-21] MEDS: INSULIN LISPRO 100 UNIT/ML 3 ML VIAL SUBCUT PRN ×2 (12:10→17:09)
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
--- NOTE | 2018-07-21 16:45 | RADIOLOGY REPORT (SQ) ---
EXAM DESCRIPTION: CT HEAD WITHOUT COMPLETED DATE/TIME: 07/21/2018 4:34 pm REASON FOR STUDY: Altered mental status from baseline E87.1 HYPO-OSMOLALITY AND HYPONATREMIA R41.82 ALTERED MENTAL STATUS, UNSPECIFIED COMPARISON: None. TECHNIQUE: Axial images acquired through the brain without intravenous contrast. Images reviewed wi th bone, brain and subdural windows. Additional sagittal and coronal reconstructions were generated. Images stored on PACS. All CT scanners at this facility use dose modulation, iterative reconstruction, and/or weight based d osing when appropriate to reduce radiation dose to as low as reasonably achievable (ALARA). [facility]: Dose Right [facility]: CareDose [facility]: Dose Right [facility]: Teradose 4D [facility]: Lemon Curve RADIATION DOSE: CT Rad equipment meets quality standard of care and radiation dose reduction techniq ues were employed. CTDIvol: 48.6 mGy. DLP: 880 mGy-cm. mGy. LIMITATIONS: None. FINDINGS: VENTRICLES: Prominent. CEREBRUM: No masses. No hemorrhage. No midline shift. Areas of low density in the white matter mos t likely due to chronic micro-vascular ischemic change. No evidence for acute infarction. CEREBELLUM: No masses. No hemorrhage. No alteration of density. No evidence for acute infarction. EXTRAAXIAL SPACES: Mild age-related involutional change. No fluid collections. No masses. ORBITS AND GLOBE: No intra- or extraconal masses. Normal contour of globe without masses. CALVARIUM: No fracture. PARANASAL SINUSES: No fluid or mucosal thickening. SOFT TISSUES: No mass or hematoma. OTHER: No other significant finding. IMPRESSION: No acute abnormality in the brain. EVIDENCE OF ACUTE STROKE: NO. TECHNICAL DOCUMENTATION: JOB ID: [id number] Quality ID # [id number]: Final reports with documentation of one or more dose reduction techniques (e.g., Au tomated exposure control, adjustment of the mA and/or kV according to patient size, use of iterative reconstruction technique) 2010 [employer]- All Rights Reserved Reading location - IP/workstation name: [email or web address]
[2018-07-21] MEDS: CEFTRIAXONE SODIUM 1,000 MG in DEXTROSE 5%-WATER 50 ML IV SCH (17:47)
[2018-07-21] MEDS ORDERED: CEFTRIAXONE 1 GM/D5W RTU 1 GM/50 ML RTUPB IV SCH (18:00)
[2018-07-21] MEDS: DULOXETINE HCL 30 MG CAPSULE.DR PO SCH (21:49)
[2018-07-22 04:46] LABS: ABSOLUTE MONOCYTES (AUTO) 0.7 10^3/uL (0.1-1.4); ABSOLUTE NEUT (AUTO) 6.8 10^3/uL (1.7-8.2); BASOPHILS % (AUTO) 0.5 % (0-2); EOSINOPHILS % (AUTO) 0.1 % (0-6); HEMATOCRIT 35.6 % (36.0-47.0); HEMOGLOBIN 12.4 g/dL (12.0-15.5); MEAN CORPUSCULAR HEMOGLOBIN 29.6 pg (27.0-33.4); MEAN CORPUSCULAR HGB CONC 34.9 g/dL (32.0-36.0); MEAN CORPUSCULAR VOLUME 85 fl (80-97); MONOCYTES % (AUTO) 7.3 % (3-13); PLATELET COUNT 150 10^3/uL (150-450); RED CELL DISTRIBUTION WIDTH 17.2 % (11.5-14.0); SEGMENTED NEUTROPHILS % (AUTO) 71.1 % (42-78); TOTAL CELLS COUNTED % (AUTO) 100 %; WHITE BLOOD COUNT 9.6 10^3/uL (4.0-10.5)
[2018-07-22 04:52] LABS: ALANINE AMINOTRANSFERASE 70 U/L (9-52); ALBUMIN 2.4 g/dL (3.5-5.0); ALKALINE PHOSPHATASE 138 U/L (38-126); ANION GAP 7 (5-19); ASPARTATE AMINO TRANSFERASE 65 U/L (14-36); BILIRUBIN,DIRECT 0.3 mg/dL (0.0-0.4); BILIRUBIN,TOTAL 0.8 mg/dL (0.2-1.3); BLOOD UREA NITROGEN 24 mg/dL (7-20); CALCIUM 8.6 mg/dL (8.4-10.2); CARBON DIOXIDE 16 mmol/L (22-30); CHLORIDE 109 mmol/L (98-107); GLUCOSE 184 mg/dL (75-110); POTASSIUM 4.2 mmol/L (3.6-5.0); TOTAL PROTEIN 5.6 g/dL (6.3-8.2)
[2018-07-22] MEDS: AMLODIPINE BESYLATE 5 MG TABLET PO SCH (10:09)
[2018-07-22] MEDS: LANSOPRAZOLE 30 MG TAB.RAP.DR PO SCH ×2 (10:09→16:59)
[2018-07-22] MEDS: LOSARTAN POTASSIUM 50 MG TABLET PO SCH (10:10)
[2018-07-22] MEDS: MULTIVIT-STRESS FORMULA/ZINC TABLET PO SCH (10:10)
[2018-07-22] MEDS: NADOLOL 40 MG TABLET PO SCH (10:10)
[2018-07-22] MEDS: CYCLOSPORINE 0.05% OPH EMULSIO 0.4 ML DROPERETTE OU SCH ×2 (10:10→17:00)
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
[2018-07-22] MEDS: INSULIN LISPRO 100 UNIT/ML 3 ML VIAL SUBCUT PRN ×3 (11:35→22:09)
[2018-07-22] MEDS: CEFTRIAXONE SODIUM 1,000 MG in DEXTROSE 5%-WATER 50 ML IV SCH (17:00)
--- NOTE | 2018-07-22 19:02 | PDOC PROGRESS REPORT ---
Subjective Progress Note for:: 07/22/18 Subjective:: Patient is more lucid and engaging so far today. PO intake fair. No chest pain or difficulty with breathing. No fever or chills. Remain on IV Rocephin and IV fluid support for UTI and dehydration respectively. Reason For Visit: PRE-RENAL AZOTEMIA,UTI,DELIRIUM, Physical Exam Vital Signs: Temp Pulse Resp BP Pulse Ox 98.3 F 70 20 125/46 L 99 07/22/18 16:00 07/22/18 16:00 07/22/18 16:00 07/22/18 16:00 07/22/18 16:00 Intake & Output 07/21/18 07/22/18 07/23/18 06:59 06:59 06:59 Intake Total 2240 700 Output Total 500 250 Balance 1740 450 Weight 68.8 kg General appearance: PRESENT: no acute distress Head exam: PRESENT: atraumatic, normocephalic Eye exam: PRESENT: conjunctiva pink, EOMI, PERRLA. ABSENT: scleral icterus Ear exam: PRESENT: normal external ear exam Mouth exam: PRESENT: moist Respiratory exam: PRESENT: clear to auscultation brigida, decreased breath sounds - at lung bases Cardiovascular exam: PRESENT: RRR. ABSENT: diastolic murmur, rubs, systolic murmur Murmur grade: 3 Vascular exam: ABSENT: pallor GI/Abdominal exam: PRESENT: normal bowel sounds, soft. ABSENT: distended, guarding, mass, organolmegaly, rebound, tenderness Extremities exam: ABSENT: pedal edema Neurological exam: PRESENT: alert - and appropriate in responses, awake Psychiatric exam: PRESENT: appropriate affect, normal mood. ABSENT: homicidal ideation, suicidal ideation Skin exam: PRESENT: dry, warm Results Laboratory Results: 07/22/18 04:28 07/22/18 04:28 07/22/18 07/22/18 04:28 04:28 WBC 9.6 RBC 4.20 Hgb 12.4 Hct 35.6 L MCV 85 MCH 29.6 MCHC 34.9 RDW 17.2 H Plt Count 150 Seg Neutrophils % 71.1 Lymphocytes % 21.0 Monocytes % 7.3 Eosinophils % 0.1 Basophils % 0.5 Absolute Neutrophils 6.8 Absolute Lymphocytes 2.0 Absolute Monocytes 0.7 Absolute Eosinophils 0.0 Absolute Basophils 0.0 Sodium 132.0 L Potassium 4.2 Chloride 109 H Carbon Dioxide 16 L Anion Gap 7 BUN 24 H Creatinine 0.65 Est GFR ( Amer) > 60 Est GFR (Non-Af Amer) > 60 Glucose 184 H Calcium 8.6 Total Bilirubin 0.8 AST 65 H ALT 70 H Alkaline Phosphatase 138 H Total Protein 5.6 L Albumin 2.4 L Impressions: Chest X-Ray 07/20/18 11:13 IMPRESSION: Low lung volumes. No acute cardiopulmonary disease suggested. Head CT 07/21/18 14:40 IMPRESSION: No acute abnormality in the brain. EVIDENCE OF ACUTE STROKE: NO. Assessment & Plan - Diagnosis (1) Dehydration Is this a current diagnosis for this admission?: Yes Plan: Continue current IV fluid support. (2) Hyponatremia with normal extracellular fluid volume Is this a current diagnosis for this admission?: Yes Plan: Continue IV Saline infusion support. Encourage PO intake. (3) Probable sepsis Is this a current diagnosis for this admission?: Yes Plan: Due to E. Faecalis UTI. (4) Enterococcus faecalis infection Is this a current diagnosis for this admission?: Yes Plan: Add IV Unasyn to antibiotic therapy management. D/C Rocephin. (5) General weakness Is this a current diagnosis for this admission?: Yes Plan: Improving with IV fluid support and increase po intake. (6) Diabetes mellitus type 2 in nonobese Is this a current diagnosis for this admission?: Yes Plan: Continue all current medication management. (7) Essential hypertension Is this a current diagnosis for this admission?: Yes Plan: Continue all current medication management. (8) GERD (gastroesophageal reflux disease) Qualifiers: Esophagitis presence: esophagitis presence not specified Qualified Code(s) : K21.9 - Gastro-esophageal reflux disease without esophagitis Is this a current diagnosis for this admission?: Yes Plan: Continue all current medication management. (9) Non-alcoholic cirrhosis Is this a current diagnosis for this admission?: Yes Plan: Continue all current medication management. - Time Time Spent with patient: 25-34 minutes Medications reviewed and adjusted accordingly: Yes Anticipated discharge: SNF - for short term rehabilitation. Within: Other - Inpatient Certification Based on my medical assessment, after consideration of the patient's comorbidities, presenting symptoms, or acuity I expect that the services needed warrant INPATIENT care.: Yes I certify that my determination is in accordance with my understanding of Medicare's requirements for reasonable and necessary INPATIENT services [42 CFR 412.3e].: Yes Medical Necessity: Need Close Monitoring Due to Risk of Patient Decompensation, Need For IV Fluids, Need For Continuous Telemetry Monitoring, Need for IV Antibiotics, Risk of Complication if Not Cared For in Hospital Post Hospital Care: D/C or Transfer Summary - Plan Summary Plan Summary: Continue all current medication management. Obtain CBC with Diff, CMP in AM. Obtain PT evaluation in AM and discharge input into SNF rehabilitation placement.
[2018-07-22] MEDS: NORMAL SALINE 1000 ML 1,000 ML IV PRN (21:03)
[2018-07-22] MEDS: DULOXETINE HCL 30 MG CAPSULE.DR PO SCH (22:11)
[2018-07-23] MEDS: AMPICILLIN SODIUM/SULBACTAM NA 1.5 GM in NORMAL SALINE 50 ML IV SCH ×5 (01:18→23:33)
[2018-07-23] MEDS: NADOLOL 40 MG TABLET PO SCH (09:49)
[2018-07-23] MEDS: MULTIVIT-STRESS FORMULA/ZINC TABLET PO SCH (09:49)
[2018-07-23] MEDS: LOSARTAN POTASSIUM 50 MG TABLET PO SCH (09:49)
[2018-07-23] MEDS: AMLODIPINE BESYLATE 5 MG TABLET PO SCH (09:49)
[2018-07-23] MEDS: LANSOPRAZOLE 30 MG TAB.RAP.DR PO SCH ×2 (09:50→16:53)
[2018-07-23] MEDS: CYCLOSPORINE 0.05% OPH EMULSIO 0.4 ML DROPERETTE OU SCH ×2 (09:50→16:53)
[2018-07-23] MEDS: NORMAL SALINE 1000 ML 1,000 ML IV PRN (09:54)
[2018-07-23] MEDS: INSULIN LISPRO 100 UNIT/ML 3 ML VIAL SUBCUT PRN ×3 (11:59→22:17)
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
[2018-07-23] MEDS ORDERED: FUROSEMIDE INJ/PF 20 MG/2 ML SDV IV ONE (19:00)
[2018-07-23] MEDS: DULOXETINE HCL 30 MG CAPSULE.DR PO SCH (22:19)
[2018-07-24] MEDS: AMPICILLIN SODIUM/SULBACTAM NA 1.5 GM in NORMAL SALINE 50 ML IV SCH ×3 (05:33→17:36)
[2018-07-24] MEDS: LANSOPRAZOLE 30 MG TAB.RAP.DR PO SCH ×2 (08:30→16:14)
--- NOTE | 2018-07-24 08:30 | PDOC PROGRESS REPORT ---
Subjective Progress Note for:: 07/24/18 Subjective:: She denied any chest pain and reported some improvement in her breathing. No fever or chills. Remain on IV Unasyn coverage. Reason For Visit: PRE-RENAL AZOTEMIA,UTI,DELIRIUM, Physical Exam Vital Signs: Temp Pulse Resp BP Pulse Ox 98.3 F 70 16 141/58 H 97 07/24/18 08:00 07/24/18 08:00 07/24/18 08:00 07/24/18 08:00 07/24/18 08:00 Intake & Output 07/23/18 07/24/18 07/25/18 06:59 06:59 06:59 Intake Total 850 3144 Output Total 250 900 Balance 600 2244 Weight 69.2 kg 76.7 kg Physical Exam: General appearance: PRESENT: no acute distress Head exam: PRESENT: atraumatic, normocephalic Eye exam: PRESENT: conjunctiva pink, EOMI, PERRLA. ABSENT: scleral icterus Ear exam: PRESENT: normal external ear exam Mouth exam: PRESENT: moist Respiratory exam: PRESENT: clear to auscultation brigida, decreased breath sounds - at lung bases Cardiovascular exam: PRESENT: RRR. ABSENT: diastolic murmur, rubs, systolic murmur Murmur grade: 3 Vascular exam: ABSENT: pallor GI/Abdominal exam: PRESENT: normal bowel sounds, soft. ABSENT: distended, guarding, mass, organomegaly, rebound, tenderness Extremities exam: PRESENT: improving pedal edema, more functional use of her hands with less swelling Neurological exam: PRESENT: alert - and appropriate in responses, awake Psychiatric exam: PRESENT: appropriate affect, normal mood. ABSENT: homicidal ideation, suicidal ideation Skin exam: PRESENT: dry, warm Murmur grade: 3 Results Laboratory Results: 07/22/18 04:28 07/22/18 04:28 Impressions: Chest X-Ray 07/20/18 11:13 IMPRESSION: Low lung volumes. No acute cardiopulmonary disease suggested. Head CT 07/21/18 14:40 IMPRESSION: No acute abnormality in the brain. EVIDENCE OF ACUTE STROKE: NO. Assessment & Plan - Diagnosis (1) Dehydration Is this a current diagnosis for this admission?: Yes (2) Hyponatremia with normal extracellular fluid volume Is this a current diagnosis for this admission?: Yes (3) Probable sepsis Is this a current diagnosis for this admission?: Yes (4) Enterococcus faecalis infection Is this a current diagnosis for this admission?: Yes (5) General weakness Is this a current diagnosis for this admission?: Yes (6) Diabetes mellitus type 2 in nonobese Is this a current diagnosis for this admission?: Yes (7) Essential hypertension Is this a current diagnosis for this admission?: Yes (8) GERD (gastroesophageal reflux disease) Qualifiers: Esophagitis presence: esophagitis presence not specified Qualified Code(s) : K21.9 - Gastro-esophageal reflux disease without esophagitis Is this a current diagnosis for this admission?: Yes (9) Non-alcoholic cirrhosis Is this a current diagnosis for this admission?: Yes - Time Time Spent with patient: 25-34 minutes Medications reviewed and adjusted accordingly: Yes Anticipated discharge: SNF - for short term rehabilitation - Inpatient Certification Based on my medical assessment, after consideration of the patient's comorbidities, presenting symptoms, or acuity I expect that the services needed warrant INPATIENT care.: Yes I certify that my determination is in accordance with my understanding of Medicare's requirements for reasonable and necessary INPATIENT services [42 CFR 412.3e].: Yes Medical Necessity: Need Close Monitoring Due to Risk of Patient Decompensation, Need For IV Fluids, Need For Continuous Telemetry Monitoring, Need for IV Antibiotics, Risk of Complication if Not Cared For in Hospital Post Hospital Care: D/C or Transfer Summary - Plan Summary Plan Summary: See attending physician orders.
[2018-07-24] MEDS ORDERED: FUROSEMIDE INJ/PF 20 MG/2 ML SDV IV ONE (09:30)
[2018-07-24] MEDS: NADOLOL 40 MG TABLET PO SCH (09:41)
[2018-07-24] MEDS: AMLODIPINE BESYLATE 5 MG TABLET PO SCH (09:41)
[2018-07-24] MEDS: MULTIVIT-STRESS FORMULA/ZINC TABLET PO SCH (09:42)
[2018-07-24] MEDS: CYCLOSPORINE 0.05% OPH EMULSIO 0.4 ML DROPERETTE OU SCH ×2 (09:42→17:36)
[2018-07-24] MEDS: LOSARTAN POTASSIUM 50 MG TABLET PO SCH (09:54)
[2018-07-24] MEDS: NORMAL SALINE 1000 ML 1,000 ML IV PRN (11:39)
[2018-07-24] MEDS: INSULIN LISPRO 100 UNIT/ML 3 ML VIAL SUBCUT PRN ×2 (11:39→16:52)
[2018-07-24] MEDS: DULOXETINE HCL 30 MG CAPSULE.DR PO SCH (22:14)
[2018-07-25] MEDS: AMPICILLIN SODIUM/SULBACTAM NA 1.5 GM in NORMAL SALINE 50 ML IV SCH ×4 (00:38→17:06)
[2018-07-25] MEDS: INSULIN LISPRO 100 UNIT/ML 3 ML VIAL SUBCUT PRN ×4 (00:52→21:08)
[2018-07-25] MEDS: LANSOPRAZOLE 30 MG TAB.RAP.DR PO SCH ×2 (10:59→17:11)
[2018-07-25] MEDS: NADOLOL 40 MG TABLET PO SCH (10:59)
[2018-07-25] MEDS: AMLODIPINE BESYLATE 5 MG TABLET PO SCH (10:59)
[2018-07-25] MEDS: LOSARTAN POTASSIUM 50 MG TABLET PO SCH (10:59)
[2018-07-25] MEDS: CYCLOSPORINE 0.05% OPH EMULSIO 0.4 ML DROPERETTE OU SCH ×2 (11:01→17:06)
[2018-07-25] MEDS: MULTIVIT-STRESS FORMULA/ZINC TABLET PO SCH (11:07)
[2018-07-25] MEDS: NORMAL SALINE 1000 ML 1,000 ML IV PRN (14:58)
--- NOTE | 2018-07-25 17:01 | PDOC PROGRESS REPORT ---
Subjective Progress Note for:: 07/25/18 Subjective:: She denied any chest pain or difficulty with breathing. No fever or chills. No nausea, vomiting or abdominal pain. Improve p.o intake with assistance. Reason For Visit: PRE-RENAL AZOTEMIA,UTI,DELIRIUM, Physical Exam Vital Signs: Temp Pulse Resp BP Pulse Ox 97.3 F 70 16 140/58 H 100 07/25/18 16:36 07/25/18 16:36 07/25/18 16:36 07/25/18 16:36 07/25/18 16:36 Intake & Output 07/24/18 07/25/18 07/26/18 06:59 06:59 06:59 Intake Total 3144 1994 1050 Output Total 900 1575 Balance 2244 419 1050 Weight 76.7 kg 73.7 kg Physical Exam: General appearance: PRESENT: no acute distress Head exam: PRESENT: atraumatic, normocephalic Eye exam: PRESENT: conjunctiva pink, EOMI, PERRLA. ABSENT: scleral icterus Ear exam: PRESENT: normal external ear exam Mouth exam: PRESENT: moist Respiratory exam: PRESENT: clear to auscultation brigida, decreased breath sounds - at lung bases Cardiovascular exam: PRESENT: RRR. ABSENT: diastolic murmur, rubs, systolic murmur Murmur grade: 3 Vascular exam: ABSENT: pallor GI/Abdominal exam: PRESENT: normal bowel sounds, soft. ABSENT: distended, guarding, mass, organomegaly, rebound, tenderness Extremities exam: PRESENT: improving pedal edema, more functional use of her hands with less swelling Neurological exam: PRESENT: alert - and appropriate in responses, awake Psychiatric exam: PRESENT: appropriate affect, normal mood. ABSENT: homicidal ideation, suicidal ideation Skin exam: PRESENT: dry, warm Murmur grade: 3 Results Laboratory Results: 07/22/18 04:28 07/22/18 04:28 Impressions: Chest X-Ray 07/20/18 11:13 IMPRESSION: Low lung volumes. No acute cardiopulmonary disease suggested. Head CT 07/21/18 14:40 IMPRESSION: No acute abnormality in the brain. EVIDENCE OF ACUTE STROKE: NO. Assessment & Plan - Diagnosis (1) Dehydration Is this a current diagnosis for this admission?: Yes Plan: Continue IV fluid support. Obtain BMP. (2) Hyponatremia with normal extracellular fluid volume Is this a current diagnosis for this admission?: Yes Plan: Continue IV fluid support. Obtain BMP. (3) Probable sepsis Is this a current diagnosis for this admission?: Yes Plan: Less likely. Blood culture no growth x 5 days. (4) Enterococcus faecalis infection Is this a current diagnosis for this admission?: Yes Plan: Continue IV Unasyn coverage. Repeat CBC with diff in AM. (5) General weakness Is this a current diagnosis for this admission?: Yes Plan: Continue rehabilitation efforts with plan for short term rehab upon discharge. Efforts at transfer to SNF in progress. Case was discussed with development planner and input is greatly appreciated.. (6) Diabetes mellitus type 2 in nonobese Is this a current diagnosis for this admission?: Yes Plan: Continue current medication management. (7) Essential hypertension Is this a current diagnosis for this admission?: Yes (8) GERD (gastroesophageal reflux disease) Qualifiers: Esophagitis presence: esophagitis presence not specified Qualified Code(s) : K21.9 - Gastro-esophageal reflux disease without esophagitis Is this a current diagnosis for this admission?: Yes (9) Non-alcoholic cirrhosis Is this a current diagnosis for this admission?: Yes - Time Time Spent with patient: 25-34 minutes Medications reviewed and adjusted accordingly: Yes Anticipated discharge: SNF - for short term rehabilitation. Within: Other - Inpatient Certification Based on my medical assessment, after consideration of the patient's comorbidities, presenting symptoms, or acuity I expect that the services needed warrant INPATIENT care.: Yes I certify that my determination is in accordance with my understanding of Medicare's requirements for reasonable and necessary INPATIENT services [42 CFR 412.3e].: Yes Medical Necessity: Need Close Monitoring Due to Risk of Patient Decompensation, Need For IV Fluids, Need For Continuous Telemetry Monitoring, Need for IV Antibiotics, Risk of Complication if Not Cared For in Hospital Post Hospital Care: D/C or Transfer Summary - Plan Summary Plan Summary: See attending physician orders.
[2018-07-25] MEDS: DULOXETINE HCL 30 MG CAPSULE.DR PO SCH (21:08)
[2018-07-26] MEDS: AMPICILLIN SODIUM/SULBACTAM NA 1.5 GM in NORMAL SALINE 50 ML IV SCH ×5 (00:43→23:47)
[2018-07-26 05:33] LABS: ABSOLUTE EOSINOPHILS # (AUTO) 0.1 10^3/uL (0.0-0.6); ABSOLUTE LYMPHOCYTES (AUTO) 2.1 10^3/uL (0.5-4.7); ABSOLUTE MONOCYTES (AUTO) 0.8 10^3/uL (0.1-1.4); ABSOLUTE NEUT (AUTO) 7.1 10^3/uL (1.7-8.2); BASOPHILS % (AUTO) 0.1 % (0-2); EOSINOPHILS % (AUTO) 1.2 % (0-6); HEMATOCRIT 37.5 % (36.0-47.0); HEMOGLOBIN 12.7 g/dL (12.0-15.5); LYMPHOCYTES % (AUTO) 20.7 % (13-45); MEAN CORPUSCULAR HEMOGLOBIN 29.2 pg (27.0-33.4); MEAN CORPUSCULAR HGB CONC 33.9 g/dL (32.0-36.0); MEAN CORPUSCULAR VOLUME 86 fl (80-97); MONOCYTES % (AUTO) 7.7 % (3-13); PLATELET COUNT 131 10^3/uL (150-450); RED BLOOD COUNT 4.35 10^6/uL (3.72-5.28); RED CELL DISTRIBUTION WIDTH 17.7 % (11.5-14.0); SEGMENTED NEUTROPHILS % (AUTO) 70.3 % (42-78); TOTAL CELLS COUNTED % (AUTO) 100 %; WHITE BLOOD COUNT 10.1 10^3/uL (4.0-10.5)
[2018-07-26 05:59] LABS: ANION GAP 7 (5-19); BLOOD UREA NITROGEN 30 mg/dL (7-20); CALCIUM 8.3 mg/dL (8.4-10.2); CARBON DIOXIDE 18 mmol/L (22-30); CHLORIDE 107 mmol/L (98-107); GLUCOSE 208 mg/dL (75-110); POTASSIUM 4.6 mmol/L (3.6-5.0); SODIUM 131.8 mmol/L (137-145)
[2018-07-26] MEDS: TRAMADOL HCL 50 MG TABLET PO PRN (06:33)
[2018-07-26] MEDS: NADOLOL 40 MG TABLET PO SCH (09:35)
[2018-07-26] MEDS: INSULIN LISPRO 100 UNIT/ML 3 ML VIAL SUBCUT PRN ×3 (09:35→21:29)
[2018-07-26] MEDS: AMLODIPINE BESYLATE 5 MG TABLET PO SCH (09:36)
[2018-07-26] MEDS: LOSARTAN POTASSIUM 50 MG TABLET PO SCH (09:36)
[2018-07-26] MEDS: MULTIVIT-STRESS FORMULA/ZINC TABLET PO SCH (09:36)
[2018-07-26] MEDS: LANSOPRAZOLE 30 MG TAB.RAP.DR PO SCH ×2 (09:36→17:52)
[2018-07-26] MEDS: CYCLOSPORINE 0.05% OPH EMULSIO 0.4 ML DROPERETTE OU SCH ×2 (09:37→17:51)
--- NOTE | 2018-07-26 18:14 | PDOC PROGRESS REPORT ---
Subjective Progress Note for:: 07/26/18 Subjective:: Patient seen by the bedside no new complaints Reason For Visit: PRE-RENAL AZOTEMIA,UTI,DELIRIUM, Physical Exam Vital Signs: Temp Pulse Resp BP Pulse Ox 98.2 F 69 20 128/60 H 96 07/26/18 15:48 07/26/18 15:48 07/26/18 15:48 07/26/18 15:48 07/26/18 15:48 Intake & Output 07/25/18 07/26/18 07/27/18 06:59 06:59 06:59 Intake Total 19936 2254 Output Total 1575 700 400 Balance 419 9972 1855 Weight 73.7 kg 74.5 kg General appearance: PRESENT: no acute distress Eye exam: PRESENT: PERRLA Respiratory exam: PRESENT: clear to auscultation brigida Cardiovascular exam: PRESENT: +S1, +S2 Murmur grade: 3 GI/Abdominal exam: PRESENT: soft Neurological exam: PRESENT: alert Results Laboratory Results: 07/26/18 04:25 07/26/18 04:25 07/26/18 07/26/18 04:25 04:25 WBC 10.1 RBC 4.35 Hgb 12.7 Hct 37.5 MCV 86 MCH 29.2 MCHC 33.9 RDW 17.7 H Plt Count 131 L Seg Neutrophils % 70.3 Lymphocytes % 20.7 Monocytes % 7.7 Eosinophils % 1.2 Basophils % 0.1 Absolute Neutrophils 7.1 Absolute Lymphocytes 2.1 Absolute Monocytes 0.8 Absolute Eosinophils 0.1 Absolute Basophils 0.0 Sodium 131.8 L Potassium 4.6 Chloride 107 Carbon Dioxide 18 L Anion Gap 7 BUN 30 H Creatinine 0.68 Est GFR ( Amer) > 60 Est GFR (Non-Af Amer) > 60 Glucose 208 H Calcium 8.3 L Impressions: Chest X-Ray 07/20/18 11:13 IMPRESSION: Low lung volumes. No acute cardiopulmonary disease suggested. Head CT 07/21/18 14:40 IMPRESSION: No acute abnormality in the brain. EVIDENCE OF ACUTE STROKE: NO. Assessment & Plan - Diagnosis (1) Urinary tract infection Qualifiers: Urinary tract infection type: site unspecified Hematuria presence: without hematuria Qualified Code(s): N39.0 - Urinary tract infection, site not specified Is this a current diagnosis for this admission?: Yes (2) General weakness Is this a current diagnosis for this admission?: Yes (3) Hyponatremia with normal extracellular fluid volume Is this a current diagnosis for this admission?: Yes (4) Hyponatremia Is this a current diagnosis for this admission?: Yes
[2018-07-26] MEDS: DULOXETINE HCL 30 MG CAPSULE.DR PO SCH (21:26)
[2018-07-27] MEDS: AMPICILLIN SODIUM/SULBACTAM NA 1.5 GM in NORMAL SALINE 50 ML IV SCH ×2 (06:05→11:18)
[2018-07-27] MEDS: TRAMADOL HCL 50 MG TABLET PO PRN (06:22)
[2018-07-27] MEDS: LANSOPRAZOLE 30 MG TAB.RAP.DR PO SCH ×2 (07:45→16:34)
[2018-07-27] MEDS: INSULIN LISPRO 100 UNIT/ML 3 ML VIAL SUBCUT PRN ×3 (07:45→22:04)
[2018-07-27] MEDS: MULTIVIT-STRESS FORMULA/ZINC TABLET PO SCH (09:52)
[2018-07-27] MEDS: AMLODIPINE BESYLATE 5 MG TABLET PO SCH (09:52)
[2018-07-27] MEDS: CYCLOSPORINE 0.05% OPH EMULSIO 0.4 ML DROPERETTE OU SCH ×2 (09:52→18:08)
[2018-07-27] MEDS: LOSARTAN POTASSIUM 50 MG TABLET PO SCH (09:52)
[2018-07-27] MEDS: NADOLOL 40 MG TABLET PO SCH (09:52)
--- NOTE | 2018-07-27 17:04 | PDOC PROGRESS REPORT ---
Subjective Progress Note for:: 07/27/18 Subjective:: Patient seen by the bedside no new complaints Reason For Visit: PRE-RENAL AZOTEMIA,UTI,DELIRIUM, Physical Exam Vital Signs: Temp Pulse Resp BP Pulse Ox 97.5 F 79 16 130/58 H 99 07/27/18 12:00 07/27/18 12:00 07/27/18 12:00 07/27/18 12:00 07/27/18 12:00 Intake & Output 07/26/18 07/27/18 07/28/18 06:59 06:59 06:59 Intake Total 2796 2415 Output Total 700 400 Balance 2095 2014 Weight 74.5 kg 75.2 kg General appearance: PRESENT: no acute distress Eye exam: PRESENT: PERRLA Respiratory exam: PRESENT: clear to auscultation brigida Cardiovascular exam: PRESENT: +S1 Murmur grade: 3 Neurological exam: PRESENT: alert Results Laboratory Results: 07/26/18 04:25 07/26/18 04:25 Impressions: Chest X-Ray 07/20/18 11:13 IMPRESSION: Low lung volumes. No acute cardiopulmonary disease suggested. Head CT 07/21/18 14:40 IMPRESSION: No acute abnormality in the brain. EVIDENCE OF ACUTE STROKE: NO. Assessment & Plan - Diagnosis (1) Urinary tract infection Qualifiers: Urinary tract infection type: site unspecified Hematuria presence: without hematuria Qualified Code(s): N39.0 - Urinary tract infection, site not specified Is this a current diagnosis for this admission?: Yes (2) General weakness Is this a current diagnosis for this admission?: Yes (3) Hyponatremia with normal extracellular fluid volume Is this a current diagnosis for this admission?: Yes (4) Hyponatremia Is this a current diagnosis for this admission?: Yes
[2018-07-27] MEDS: DULOXETINE HCL 30 MG CAPSULE.DR PO SCH (22:04)
[2018-07-28] MEDS: MULTIVIT-STRESS FORMULA/ZINC TABLET PO SCH (09:53)
[2018-07-28] MEDS: LANSOPRAZOLE 30 MG TAB.RAP.DR PO SCH ×2 (09:53→16:23)
[2018-07-28] MEDS: NADOLOL 40 MG TABLET PO SCH (09:54)
[2018-07-28] MEDS: AMLODIPINE BESYLATE 5 MG TABLET PO SCH (09:55)
[2018-07-28] MEDS: LOSARTAN POTASSIUM 50 MG TABLET PO SCH (09:55)
[2018-07-28] MEDS: CYCLOSPORINE 0.05% OPH EMULSIO 0.4 ML DROPERETTE OU SCH ×2 (10:01→17:32)
--- NOTE | 2018-07-28 19:36 | PDOC PROGRESS REPORT ---
Subjective Progress Note for:: 07/28/18 Subjective:: Patient is more energetic today. Participating in physical therapy. She denied any chest pain or difficulty with breathing. No fever or chills. No nausea, vomiting or abdominal pain. awaiting SNF placement with promise of bed availability tomorrow at [facility] in [place]. Reason For Visit: PRE-RENAL AZOTEMIA,UTI,DELIRIUM, Physical Exam Vital Signs: Temp Pulse Resp BP Pulse Ox 98.3 F 70 16 125/52 L 99 07/28/18 16:00 07/28/18 19:00 07/28/18 16:00 07/28/18 11:41 07/28/18 16:00 Intake & Output 07/27/18 07/28/18 07/29/18 06:59 06:59 06:59 Intake Total 2415 779 605 Output Total 400 Balance 2014 779 605 Weight 75.2 kg 75 kg Physical Exam: General appearance: PRESENT: no acute distress Head exam: PRESENT: atraumatic, normocephalic Eye exam: PRESENT: conjunctiva pink, EOMI, PERRLA. ABSENT: scleral icterus Ear exam: PRESENT: normal external ear exam Mouth exam: PRESENT: moist Respiratory exam: PRESENT: clear to auscultation brigida, decreased breath sounds - at lung bases Cardiovascular exam: PRESENT: RRR. ABSENT: diastolic murmur, rubs, systolic murmur Murmur grade: 3 Vascular exam: ABSENT: pallor GI/Abdominal exam: PRESENT: normal bowel sounds, soft. ABSENT: distended, guarding, mass, organomegaly, rebound, tenderness Extremities exam: PRESENT: resolved pedal edema Neurological exam: PRESENT: alert - and appropriate in responses, awake Psychiatric exam: PRESENT: appropriate affect, normal mood. ABSENT: homicidal ideation, suicidal ideation Skin exam: PRESENT: dry, warm Murmur grade: 3 Results Laboratory Results: 07/26/18 04:25 07/26/18 04:25 Impressions: Chest X-Ray 07/20/18 11:13 IMPRESSION: Low lung volumes. No acute cardiopulmonary disease suggested. Head CT 07/21/18 14:40 IMPRESSION: No acute abnormality in the brain. EVIDENCE OF ACUTE STROKE: NO. Assessment & Plan - Diagnosis (1) Dehydration Is this a current diagnosis for this admission?: Yes (2) Hyponatremia with normal extracellular fluid volume Is this a current diagnosis for this admission?: Yes (3) Probable sepsis Is this a current diagnosis for this admission?: Yes (4) Enterococcus faecalis infection Is this a current diagnosis for this admission?: Yes (5) General weakness Is this a current diagnosis for this admission?: Yes (6) Diabetes mellitus type 2 in nonobese Is this a current diagnosis for this admission?: Yes (7) Essential hypertension Is this a current diagnosis for this admission?: Yes (8) GERD (gastroesophageal reflux disease) Qualifiers: Esophagitis presence: esophagitis presence not specified Qualified Code(s) : K21.9 - Gastro-esophageal reflux disease without esophagitis Is this a current diagnosis for this admission?: Yes (9) Non-alcoholic cirrhosis Is this a current diagnosis for this admission?: Yes - Time Time Spent with patient: 25-34 minutes Medications reviewed and adjusted accordingly: Yes Anticipated discharge: SNF - for short term rehabilitation. Within: within 24 hours - Inpatient Certification Based on my medical assessment, after consideration of the patient's comorbidities, presenting symptoms, or acuity I expect that the services needed warrant INPATIENT care.: Yes I certify that my determination is in accordance with my understanding of Medicare's requirements for reasonable and necessary INPATIENT services [42 CFR 412.3e].: Yes Medical Necessity: Need Close Monitoring Due to Risk of Patient Decompensation, Need For Continuous Telemetry Monitoring, Risk of Complication if Not Cared For in Hospital Post Hospital Care: D/C or Transfer Summary - Plan Summary Plan Summary: Continue current medication management. D/C IV fluid. Obtain CBC with diff and BMP.
[2018-07-28 20:13] LABS: HEMATOCRIT 39.5 % (36.0-47.0); HEMOGLOBIN 13.5 g/dL (12.0-15.5); MEAN CORPUSCULAR HEMOGLOBIN 29.6 pg (27.0-33.4); MEAN CORPUSCULAR HGB CONC 34.1 g/dL (32.0-36.0); MEAN CORPUSCULAR VOLUME 87 fl (80-97); PLATELET COUNT 115 10^3/uL (150-450); RED BLOOD COUNT 4.55 10^6/uL (3.72-5.28); RED CELL DISTRIBUTION WIDTH 18.5 % (11.5-14.0); WHITE BLOOD COUNT 10.2 10^3/uL (4.0-10.5)
[2018-07-28 20:31] LABS: ABSOLUTE LYMPHOCYTES# (MANUAL) 1.7 10^3/uL (0.5-4.7); ABSOLUTE MONOCYTES # (MANUAL) 0.4 10^3/uL (0.1-1.4); ANION GAP 8 (5-19); BASOPHILS % (MANUAL) 0 % (0-2); BLOOD UREA NITROGEN 34 mg/dL (7-20); CALCIUM 8.9 mg/dL (8.4-10.2); CARBON DIOXIDE 19 mmol/L (22-30); CHLORIDE 106 mmol/L (98-107); EOSINOPHILS % (MANUAL) 1 % (0-6); GLUCOSE 204 mg/dL (75-110); LYMPHOCYTES % (MANUAL) 17 % (13-45); MONOCYTES % (MANUAL) 4 % (3-13); POTASSIUM 4.7 mmol/L (3.6-5.0); SEGMENTED NEUTROPHILS % (MAN) 78 % (42-78); SODIUM 132.8 mmol/L (137-145); TOTAL CELLS COUNTED 100
[2018-07-28 20:32] LABS: ANISOCYTOSIS 2+; OVALOCYTES SLIGHT; PLATELET COMMENT DECREASED; POIKILOCYTOSIS SLIGHT
[2018-07-28] MEDS: DULOXETINE HCL 30 MG CAPSULE.DR PO SCH (21:24)
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
[2018-07-29] MEDS: NADOLOL 40 MG TABLET PO SCH (09:21)
[2018-07-29] MEDS: LOSARTAN POTASSIUM 50 MG TABLET PO SCH (09:21)
[2018-07-29] MEDS: AMLODIPINE BESYLATE 5 MG TABLET PO SCH (09:21)
[2018-07-29] MEDS: LANSOPRAZOLE 30 MG TAB.RAP.DR PO SCH ×2 (09:21→17:29)
[2018-07-29] MEDS: CYCLOSPORINE 0.05% OPH EMULSIO 0.4 ML DROPERETTE OU SCH ×2 (09:22→17:29)
[2018-07-29] MEDS: MULTIVIT-STRESS FORMULA/ZINC TABLET PO SCH (09:22)
[2018-07-29] MEDS: INSULIN LISPRO 100 UNIT/ML 3 ML VIAL SUBCUT PRN (21:41)
[2018-07-29] MEDS: DULOXETINE HCL 30 MG CAPSULE.DR PO SCH (21:41)
[2018-07-30] MEDS: LANSOPRAZOLE 30 MG TAB.RAP.DR PO SCH (08:58)
[2018-07-30] MEDS: AMLODIPINE BESYLATE 5 MG TABLET PO SCH (10:58)
[2018-07-30] MEDS: NADOLOL 40 MG TABLET PO SCH (10:58)
[2018-07-30] MEDS: LOSARTAN POTASSIUM 50 MG TABLET PO SCH (10:58)
[2018-07-30] MEDS: MULTIVIT-STRESS FORMULA/ZINC TABLET PO SCH (10:58)
[2018-07-30] MEDS: CYCLOSPORINE 0.05% OPH EMULSIO 0.4 ML DROPERETTE OU SCH (10:59)
[2018-07-30 14:25] VITALS: BP 131/52
== END 2018-07-30 16:07 | DRG 641 ==
LOC: ER 10:48 → EH 13:42 → 5 15:07 → OBSVTOIN 07-21 16:57
PROVIDERS: ADMIT Internal Medicine Geriatric Medicine; ATTEND Internal Medicine Geriatric Medicine
DX: E87.1 Hypo-osmolality and hyponatremia (principal); N39.0 Urinary tract infection, site not specified; I85.10 Secondary esophageal varices without bleeding; E86.0 Dehydration; K74.69 Other cirrhosis of liver; E11.65 Type 2 diabetes mellitus with hyperglycemia; R01.1 Cardiac murmur, unspecified; I10 Essential (primary) hypertension; B95.2 Enterococcus as the cause of diseases classified elsewhere; K21.9 Gastro-esophageal reflux disease without esophagitis; F32.9 Major depressive disorder, single episode, unspecified; M13.842 Other specified arthritis, left hand; M13.841 Other specified arthritis, right hand; M46.90 Unspecified inflammatory spondylopathy, site unspecified; D64.9 Anemia, unspecified; R79.89 Other specified abnormal findings of blood chemistry; Z88.5 Allergy status to narcotic agent; Z91.041 Radiographic dye allergy status; Z91.030 Bee allergy status; Z90.710 Acquired absence of both cervix and uterus; Z23 Encounter for immunization
CPT/HCPCS: 36415; 51702; 70450; 71045; 80048; 80053; 80307; 81001; 82140; 82550; 82962; 83690; 84484; 85025; 85610; 87040; 87086; 87088; 87186; 90471; 90686; 93005; 93010; 96360; 96361; 99285; G0008; G0378; G8978-GP; G8979-GP; J0295; J0696; J1815; J1940; J3490; J7030

== ENCOUNTER → 2018-11-04 | Outpatient (CLI) | payer MEDICARE, OTHER ==
[2018-11-04 10:54] LABS: ABSOLUTE BASOPHILS # (AUTO) 0.1 10^3/uL (0.0-0.2); ABSOLUTE EOSINOPHILS # (AUTO) 0.5 10^3/uL (0.0-0.6); ABSOLUTE LYMPHOCYTES (AUTO) 2.1 10^3/uL (0.5-4.7); ABSOLUTE MONOCYTES (AUTO) 0.6 10^3/uL (0.1-1.4); ABSOLUTE NEUT (AUTO) 2.8 10^3/uL (1.7-8.2); BASOPHILS % (AUTO) 0.9 % (0-2); EOSINOPHILS % (AUTO) 7.6 % (0-6); HEMATOCRIT 24.2 % (36.0-47.0); LYMPHOCYTES % (AUTO) 34.7 % (13-45); MEAN CORPUSCULAR HEMOGLOBIN 27.6 pg (27.0-33.4); MEAN CORPUSCULAR HGB CONC 33.1 g/dL (32.0-36.0); MEAN CORPUSCULAR VOLUME 83 fl (80-97); MONOCYTES % (AUTO) 10.1 % (3-13); PLATELET COUNT 206 10^3/uL (150-450); RED CELL DISTRIBUTION WIDTH 15.5 % (11.5-14.0); SEGMENTED NEUTROPHILS % (AUTO) 46.7 % (42-78); TOTAL CELLS COUNTED % (AUTO) 100 %; WHITE BLOOD COUNT 6.1 10^3/uL (4.0-10.5)
[2018-11-04 11:05] LABS: ALANINE AMINOTRANSFERASE 40 U/L (9-52); ALBUMIN 3.6 g/dL (3.5-5.0); ALKALINE PHOSPHATASE 172 U/L (38-126); ANION GAP 8 (5-19); ASPARTATE AMINO TRANSFERASE 53 U/L (14-36); BILIRUBIN,DIRECT 0.2 mg/dL (0.0-0.4); BILIRUBIN,TOTAL 0.8 mg/dL (0.2-1.3); BLOOD UREA NITROGEN 26 mg/dL (7-20); CALCIUM 9.4 mg/dL (8.4-10.2); CARBON DIOXIDE 26 mmol/L (22-30); CHLORIDE 103 mmol/L (98-107); GLUCOSE 102 mg/dL (75-110); POTASSIUM 4.2 mmol/L (3.6-5.0); SODIUM 136.5 mmol/L (137-145); TOTAL PROTEIN 6.7 g/dL (6.3-8.2)
[2018-11-05 07:41] LABS: CHOLESTEROL 174.05 mg/dL (0-200); TRIGLYCERIDES 120 mg/dL (<150)
[2018-11-05 07:52] LABS: DIRECT LDL 86 mg/dL (<100)
[2018-11-05 16:32] LABS: IRON(TIBC) 42.3 ug/dL (37-170)
[2018-11-05 17:08] LABS: FERRITIN 9.89 ng/mL (11.1-264.0)
== END ==
LOC: LAB 10:10
PROVIDERS: ATTEND Internal Medicine Geriatric Medicine
DX: E11.65 Type 2 diabetes mellitus with hyperglycemia (principal); I10 Essential (primary) hypertension; D50.9 Iron deficiency anemia, unspecified
CPT/HCPCS: 36415; 80053; 80061; 82728; 83540; 83550; 85025

== ENCOUNTER 2018-12-01 10:20 | Day surgery (SDC) | payer MEDICARE, OTHER ==
[2018-12-01] MEDS ORDERED: ONDANSETRON HCL INJ/PF 4 MG/2 ML SDV ONE (12:22)
[2018-12-01 13:17] VITALS: BP 122/39
--- NOTE | 2018-12-01 13:49 | Operative Report ---
Operative Report DATE OF SURGERY: 12/01/18 Operative Report: The risks benefits and alternatives of the procedure explained to the patient in detail and informed consent is obtained.A GIF Olympus video scope was inserted into the patient's mouth and hypopharynx, the esophagus is identified intubated and insufflated, the scope was then advanced through the esophagus stomach and duodenum, retroflexion maneuver is done ,the esophagus stomach and first and second portions of the duodenum examined. PREOPERATIVE DIAGNOSIS: Gastric antral vascular ectasias previous GI bleed in the past POSTOPERATIVE DIAGNOSIS: Gastric antral vascular ectasias noted in the hiatal hernia as well as in the distal antrum. Some of them of bleeding. These were cauterized with argon plasma regional account manager device. No esophageal varices are noted. OPERATION: EGD with control of hemorrhage using argon plasma regional account manager SURGEON: BLANQUITA LOWERY ANESTHESIA: LMAC TISSUE REMOVED OR ALTERED: As noted above. COMPLICATIONS: None. ESTIMATED BLOOD LOSS: None. INTRAOPERATIVE FINDINGS: As noted above. PROCEDURE: Patient tolerated the procedure well. No immediate postprocedure complications are noted. Patient discharged in good condition. Discharge date 12/01/2018. Discharge diet: Regular. Discharge activity: Regular. 2-3-week follow-up to discuss findings. Repeat EGD with either ablation or control of hemorrhage needed if patient were to continue having symptoms. No biopsies obtained.
== END 2018-12-01 12:54 | disposition home or self-care (01) ==
LOC: END 10:20
PROVIDERS: ATTEND Internal Medicine Gastroenterology
DX: K31.811 Angiodysplasia of stomach and duodenum with bleeding (principal); K44.9 Diaphragmatic hernia without obstruction or gangrene; I10 Essential (primary) hypertension; K21.9 Gastro-esophageal reflux disease without esophagitis; D64.9 Anemia, unspecified; Z88.8 Allergy status to other drugs, medicaments and biological substances; Z88.5 Allergy status to narcotic agent; Z79.899 Other long term (current) drug therapy; Z79.891 Long term (current) use of opiate analgesic; Z91.041 Radiographic dye allergy status
CPT/HCPCS: 43255; 87210; J2405; J2704; 731

== ENCOUNTER 2019-02-15 23:56 | Inpatient (IN) | payer MEDICARE, OTHER ==
--- NOTE | 2019-02-16 00:14 | ER Document Report ---
ED General - General Chief Complaint: Abdominal Pain Stated Complaint: ABDOMINAL PAIN Time Seen by Provider: 02/16/19 00:00 Primary Care Provider: ALISSA MCKEON MD [Primary Care Provider] - Follow up as needed Notes: Patient is a 79-year-old female who presents with reported abdominal pain. Nurse at bedside informed the paramedics said that she was having some abdominal pain. She did fall today. She was having pain and therefore paramedics gave her fentanyl. Since the fentanyl the patient vomited and has been unable to communicate or tell us what is going on due to what appears to be effect from the fentanyl. Further history is difficult to obtain due to patient being under the influence of the fentanyl and unable to answer questions appropriately. 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 She has a history of diabetes. Has history of frequent UTIs. TRAVEL OUTSIDE OF THE [place] IN LAST 30 DAYS: No - Related Data Allergies/Adverse Reactions: codeine [Codeine] Allergy (Intermediate, Verified 11/27/18 09:21) VOMITING meperidine HCl [From Demerol] Allergy (Intermediate, Verified 11/27/18 09:21) n/v Iodinated Contrast- Oral and IV Dye [Iodinated Contrast Media - IV Dye] Allergy (Mild, Verified 11/27/18 09:21) Itching levofloxacin [From Levaquin] Allergy (Mild, Verified 11/27/18 09:21) itching fentanyl Adverse Reaction (Verified 11/27/18 09:21) "can't wake up" BEE STINGS Allergy (Uncoded 06/02/18 20:03) Anaphylaxis Past Medical History - Social History Smoking Status: Never Smoker Frequency of alcohol use: None Drug Abuse: None Family History: Reviewed & Not Pertinent - Past Medical History Cardiac Medical History: Reports: Hx Hypertension, Hx Heart Murmur Denies: Hx Coronary Artery Disease, Hx Heart Attack Pulmonary Medical History: Reports: Hx Pneumonia - hx of Denies: Hx Asthma, Hx Bronchitis, Hx COPD Neurological Medical History: Denies: Hx Cerebrovascular Accident, Hx Seizures Endocrine Medical History: Reports: Hx Diabetes Mellitus Type 2 Renal/ Medical History: Denies: Hx Peritoneal Dialysis GI Medical History: Reports: Hx Cirrhosis, Hx Diverticulitis, Hx Gastroesophageal Reflux Disease. Denies: Hx Hepatitis, Hx Hiatal Hernia, Hx Ulcer Musculoskeletal Medical History: Reports Hx Arthritis - HANDS, BACK Psychiatric Medical History: Reports: Hx Depression Infectious Medical History: Denies: Hx Hepatitis Past Surgical History: Reports: Hx Abdominal Surgery - 6 banded varices, Hx Hysterectomy, Hx Orthopedic Surgery - Back surgery, Other - Surgery for GI bleeding secondary to esophageal varices secondary to cirrho - Immunizations Hx Diphtheria, Pertussis, Tetanus Vaccination: Yes Hx Pneumococcal Vaccination: 10/21/15 Review of Systems - Review of Systems -: Yes ROS unobtainable due to patient's medical condition - Patient not answering questions appropriately due to fentanyl Physical Exam - Vital signs Vitals: Pulse Ox 100 02/16/19 00:02 - Notes Notes: General Appearance: Patient is awake but a little bit somnolent. When I asked her questions she sometimes will attempt to mumble answers but obviously is having difficulty doing so which I suspect is related to the fentanyl as she reported acting like this after receiving the fentanyl and Ameluz. Vitals: reviewed, See vital signs table. Head: no swelling or tenderness to the head. Signs of trauma to head on exam. Eyes: PERRL, EOMI, Conjuctiva clear Mouth: No decreasd moisture Throat: No tonsillar inflammation, No airway obstruction, No lymphadenopathy Neck: Supple, no neck tenderness, no neck swelling Lungs: No wheezing, No rales, No rhonci, No accessory muscle use, good air exchange bilaterally. Heart: Normal rate, Regular rythm, No murmur, no rub Abdomen: Normal BS, soft, No rigidity, patient does have some tenderness to palpation of the abdomen that appears to be a bit worse on the right side., No guarding, no rebound, no abdominal masses, no organomegaly Extremities: sgood pulses in all extremities, no swelling or tenderness in the extremities, no edema. Skin: warm, dry, appropriate color, no rash Neuro: Awake. Patient is sedated from fentanyl that she received. She does move bilateral upper extremities on her own. Remainder of neuro exam is d ifficult to obtain at this time to sedation. Course - Re-evaluation Re-evalutation: 02/16/19 01:34 On reevaluation patient is talking a little bit more however she still seems a little bit altered. She does have a fever. Blood work has been drawn. CBC is back with no leukocytosis thus far. Chemistry panel is pending. Lactic acid will be elevated. Awaiting urinalysis results as well. 02/16/19 03:26 She continues to have some generalized mild pain to palpation it seems worse in the right side. I did want to do a CT scan. I prefer to do it with IV contrast however I am continuing to wait for the patient's kidney function come back. The initial chemistry panel was hemolyzed. I spoke with the nurse who said that labs was to come draw the blood but never showed up and therefore she did draw and send it down. It is now currently running. 02/16/19 04:23 On reevaluation patient's abdominal pain is improving. We are about to go forward with CT scan. There is another delay in CT scan and that they did not want to perform asked the patient has previous history of developing itching when she receives IV contrast dye. Patient denies history of difficulty breathing or swallowing. They requested a give her Solu-Medrol, Benadryl, and Pepcid. Informed them that patient's had a prolonged period of altered mental status and somnolence with only 25 mcg of fentanyl. After giving her 50 of Benadryl will completely knock her out again to make it difficult to continue to do repeat exams on her therefore would rather hold off on this. They are understanding of this and stated we will go for the CT scan. I will go ahead and give her the Solu-Medrol and the Pepcid. 02/16/19 05:42 CT scan shows subtle evidence of colitis. Suspect likely where she has a fever and abdominal pain. Currently I do not think it is ischemic and that her pain is not out of proportion to exam and her lactic acid is only minimally elevated. Suspect lactic acid is actually will be elevated due to the infection itself and possible impending sepsis. Chest x-ray is read as possible bilateral lower lobe pneumonia. She is not having laboratory symptoms at this time however will continue cover with antibiotics in the meantime. I have ordered advance as this will cover for colitis as well as cover for most of pneumonia. She is allergic to fluoroquinolones and therefore cannot use those. I did discuss case with Dr. Subramanian, is covering for Dr. Mckeon. He agrees to accept the patient on behalf of Dr. Mckeon. Patient's mental status does continue to improve now that she is no longer having fever. She still is a little bit sluggish and does not appear to be quite at her baseline in comparison to what I have reviewed from her previous records. Dictation of this chart was performed using voice recognition software; therefore, there may be some unintended grammatical errors. - Vital Signs Vital signs: Temp Pulse Resp BP Pulse Ox 98.9 F 23 H 151/70 H 99 02/16/19 03:07 02/16/19 00:33 02/16/19 00:33 02/16/19 00:33 - Laboratory Result Diagrams: 02/16/19 00:20 02/16/19 02:42 Laboratory results interpreted by me: 02/16/19 02/16/19 02/16/19 00:20 00:20 01:14 Hgb 10.6 L Hct 32.3 L MCV 79 L MCH 26.1 L RDW 25.3 H Sodium Glucose Lactic Acid 2.7 H Direct Bilirubin AST Alkaline Phosphatase Total Protein Albumin Urine Glucose (UA) 150 H Urine Urobilinogen 4.0 H 02/16/19 02:42 Hgb Hct MCV MCH RDW Sodium 135.1 L Glucose 138 H Lactic Acid Direct Bilirubin 0.5 H AST 65 H Alkaline Phosphatase 178 H Total Protein 6.1 L Albumin 2.7 L Urine Glucose (UA) Urine Urobilinogen - EKG Interpretation by Me Additional EKG results interpreted by me: 02/16/19 00:26 EKG is reviewed and interpreted by me. EKG shows sinus tachycardia with rate of 108 bpm. Patient has a left bundle branch block with expected ST segment changes which are unchanged comparison to her previous EKG from July 20, 2018. GA interval is within normal range. QRS duration and QT intervals are prolonged. Discharge - Discharge Clinical Impression: Colitis Fever Qualifiers: Fever type: unspecified Qualified Code(s): R50.9 - Fever, unspecified Pneumonia Qualifiers: Pneumonia type: due to unspecified organism Laterality: bilateral Lung location: lower lobe of lung Qualified Code(s): J18.1 - Lobar pneumonia, unspecified organism Altered mental status Qualifiers: Altered mental status type: unspecified Qualified Code(s): R41.82 - Altered mental status, unspecified Condition: Stable Disposition: ADMITTED INPATIENT Admitting Provider: Meenakshi Unit Admitted: Telemetry
[2019-02-16] MEDS ORDERED: NORMAL SALINE 500 ML IV ONE (00:27)
[2019-02-16] MEDS ORDERED: ACETAMINOPHEN 650 MG SUPP.RECT PR ONE (00:32)
--- NOTE | 2019-02-16 00:41 | RADIOLOGY REPORT (SQ) ---
EXAM DESCRIPTION: XR CHEST 1 VIEW COMPLETED DATE/TME: 02/16/2019 00:07 CLINICAL HISTORY: 78 years, Female, abdominal pain COMPARISON: 07/20/2018 NUMBER OF VIEWS: One TECHNIQUE: AP view of the chest LIMITATIONS: None. FINDINGS: There are bibasilar airspace opacities. The heart is size. There is no pneumothorax. Small pleural effusions are present. The bones are demineralized. IMPRESSION: Bibasilar airspace opacities, which may represent atelectasis or pneumonia. copyright 2010 [employer]- All Rights Reserved
[2019-02-16 00:44] LABS: ABSOLUTE BASOPHILS # (AUTO) 0.1 10^3/uL (0.0-0.2); ABSOLUTE EOSINOPHILS # (AUTO) 0.1 10^3/uL (0.0-0.6); ABSOLUTE LYMPHOCYTES (AUTO) 1.2 10^3/uL (0.5-4.7); ABSOLUTE MONOCYTES (AUTO) 0.5 10^3/uL (0.1-1.4); ABSOLUTE NEUT (AUTO) 5.9 10^3/uL (1.7-8.2); BASOPHILS % (AUTO) 1.2 % (0-2); EOSINOPHILS % (AUTO) 0.9 % (0-6); HEMATOCRIT 32.3 % (36.0-47.0); HEMOGLOBIN 10.6 g/dL (12.0-15.5); LYMPHOCYTES % (AUTO) 15.5 % (13-45); MEAN CORPUSCULAR HEMOGLOBIN 26.1 pg (27.0-33.4); MEAN CORPUSCULAR HGB CONC 32.9 g/dL (32.0-36.0); MEAN CORPUSCULAR VOLUME 79 fl (80-97); PLATELET COUNT 197 10^3/uL (150-450); RED BLOOD COUNT 4.07 10^6/uL (3.72-5.28); RED CELL DISTRIBUTION WIDTH 25.3 % (11.5-14.0); SEGMENTED NEUTROPHILS % (AUTO) 76.4 % (42-78); TOTAL CELLS COUNTED % (AUTO) 100 %; WHITE BLOOD COUNT 7.7 10^3/uL (4.0-10.5)
[2019-02-16 01:08] LABS: ANISOCYTOSIS 3+; HYPOCHROMASIA SLIGHT; OVALOCYTES SLIGHT; PLATELET CLUMPS PRESENT; POIKILOCYTOSIS 1+; SCHISTOCYTES 1+; TARGET CELLS SLIGHT
[2019-02-16 01:59] LABS: APPEARANCE,URINE SLIGHTLY-CLOUDY; BILIRUBIN,URINE NEGATIVE (NEGATIVE); GLUCOSE, URINE 150 mg/dL (NEGATIVE); KETONES,URINE NEGATIVE (NEGATIVE); LEUKOCYTE ESTERASE,URINE NEGATIVE (NEGATIVE); NITRITE,URINE NEGATIVE (NEGATIVE); PROTEIN,URINE NEGATIVE (NEGATIVE); URINE SPECIFIC GRAVITY 1.017
[2019-02-16 02:00] LABS: COLOR,URINE DARK YELLOW
[2019-02-16 03:33] LABS: ALANINE AMINOTRANSFERASE 42 U/L (9-52); ALBUMIN 2.7 g/dL (3.5-5.0); ALKALINE PHOSPHATASE 178 U/L (38-126); ANION GAP 8 (5-19); ASPARTATE AMINO TRANSFERASE 65 U/L (14-36); BILIRUBIN,DIRECT 0.5 mg/dL (0.0-0.4); BILIRUBIN,TOTAL 1.1 mg/dL (0.2-1.3); BLOOD UREA NITROGEN 17 mg/dL (7-20); CALCIUM 8.4 mg/dL (8.4-10.2); CARBON DIOXIDE 23 mmol/L (22-30); CHLORIDE 104 mmol/L (98-107); GLUCOSE 138 mg/dL (75-110); LIPASE 49.6 U/L (23-300); POTASSIUM 3.9 mmol/L (3.6-5.0); SODIUM 135.1 mmol/L (137-145); TOTAL PROTEIN 6.1 g/dL (6.3-8.2)
[2019-02-16] MEDS ORDERED: FAMOTIDINE INJ/PF 20 MG/2 ML SDV IV ONE (04:25)
[2019-02-16] MEDS ORDERED: METHYLPREDNISOLONE INJ 125 MG/2 ML SDV IV ONE (04:25)
--- NOTE | 2019-02-16 05:17 | RADIOLOGY REPORT (SQ) ---
EXAM DESCRIPTION: CT ABDOMEN PELVIS WITH IV CONTRAST COMPLETED DATE/TME: 02/16/2019 03:41 CLINICAL HISTORY: 79 years, Female, fever, abdominal pain COMPARISON: 06/02/2018 TECHNIQUE: Axial CT images of the abdomen and pelvis were obtained after the administration of IV contrast. Sagittal and coronal reformats were performed. DLP 690 Images stored on PACS. All CT scanners at this facility use dose modulation, iterative reconstruction, and/or weight based dosing when appropriate to reduce radiation dose to as low as reasonably achievable (ALARA). [facility]: Dose Right [facility]: CareDose [facility]: Dose Right [facility]: Teradose 4D [facility]: [employer] LIMITATIONS: None. FINDINGS: The liver is cirrhotic. The gallbladder is distended. The pancreas, spleen, and adrenal glands are unremarkable. There is no evidence of urolithiasis or hydronephrosis bilaterally. There is a 9 mm cyst within the left kidney. There is no intraperitoneal free air. There is a mild amount of ascites. There are atherosclerotic calcifications of the abdominal aorta without evidence of an aneurysm. There is no lymphadenopathy. There is a small hiatal hernia. There is mild thickening of the small bowel. The appendix is not uniquely identified. There is mild thickening of the ascending colon. There is a moderate amount of stool within the colon. The uterus is atrophic. The urinary bladder is unremarkable. There is a chronic appearing compression deformity of L1 with changes of vertebroplasty. IMPRESSION: Cirrhotic appearing liver with a mild amount of ascites. Mild thickening of the small bowel and ascending colon, which may be related to the ascites or liver disease or possibly an infectious/inflammatory process. Small hiatal hernia. TECHNICAL DOCUMENTATION: Quality ID # 436: Final reports with documentation of one or more dose reduction techniques (e.g., Automated exposure control, adjustment of the mA and/or kV according to patient size, use of iterative reconstruction technique) copyright 2010 [employer]- All Rights Reserved
[2019-02-16] MEDS ORDERED: PIPERACILLIN/TAZOBACTAM 3.375 GM VIAL IV ONE (05:31)
--- NOTE | 2019-02-16 06:27 | EKG REPORT ---
SEVERITY:- ABNORMAL ECG - SINUS TACHYCARDIA PROBABLE LEFT ATRIAL ABNORMALITY LEFT BUNDLE BRANCH BLOCK : Confirmed by: Zana Duncan MD 16-Feb-2019 06:26:27
--- NOTE | 2019-02-16 11:17 | PDOC H&P ---
History of Present Illness Admission Date/PCP: 02/16/19 06:04 [facility] Patient complains of: Abdominal pain History of Present Illness: GIOVANNY RODRÍGUEZ is a 79 year old female patient known to my practice who presented to the ED via EMS with complain of abdominal pain. Patient was administered Fentanyl in the field and she has not been able to contribute much to her medical history. I spoke with her daughter Joanna Hernández who informed me that she was recently discharged from [facility] in [place], [place] with hospital acquired pneumonia that was treated with oral antibiotic and subsequent chest X ray reported as clear of the pneumonia. Daughter reported that over the last one week patient has been more confused with poor oral food and fluid intake, weight loss and reported feeling cold all the time. She sustained a fall at home last night in er attempt to transfer from [facility]. There was no reported injury.Due to persistence of her abdominal pain EMS was activated and she was transferred to the ED. Due to her abdominal pain she received a dose of Fentanyl by the EMS crew and subsequently was not able to contribute to her medical history in the ED. Her initial ED evaluation revealed temperature of 101F and abdominal tenderness in RLQ region to palpation. Her chest X ray did suggest bibasilar air space disease process and her CT abdomen and pelvis revealed segmental wall thickening of the small bowel and ascending colon suggestive of inflammatory versus infectious process. She was admitted as case of Colitis, bibasilar pneumonia and altered mental status. 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 Past Medical History Cardiac Medical History: Reports: Hypertension, Heart Murmur Denies: Coronary Artery Disease, Myocardial Infarction Pulmonary Medical History: Reports: Pneumonia - hx of Denies: Asthma, Bronchitis, Chronic Obstructive Pulmonary Disease (COPD) Neurological Medical History: Denies: Seizures Endocrine Medical History: Reports: Diabetes Mellitus Type 2 GI Medical History: Reports: Cirrhosis, Diverticulitis, Gastroesophageal Reflux Disease Denies: Hepatitis, Hiatal Hernia Musculoskeltal Medical History: Reports: Arthritis - HANDS, BACK Psychiatric Medical History: Reports: Depression Hematology: Reports: Anemia Denies: Sickle Cell Disease Past Surgical History Past Surgical History: Reports: Hysterectomy, Orthopedic Surgery - Back surgery, Other - Surgery for GI bleeding secondary to esophageal varices secondary to ci rrho Denies: Amputation Social History Smoking Status: Never Smoker Drugs: None - Advance Directive Resuscitation Status: Full Code - except for situation such as stroke or massive heart attack as per my discussion with her daughter Joanna Newell. Family History Family History: Reviewed & Not Pertinent Parental Family History Reviewed: Yes Children Family History Reviewed: Yes Sibling(s) Family History Reviewed.: Yes Medication/Allergy Home Medications: Amlodipine Besylate [Norvasc 5 mg Tablet] 5 mg PO DAILY 07/20/18 Duloxetine HCl [Cymbalta] 60 mg PO QHS 07/20/18 Nadolol [Corgard 40 mg Tablet] 40 mg PO DAILY 07/20/18 Ondansetron HCl [Zofran 4 mg Tablet] 4 mg PO Q4HP PRN 07/20/18 Dexlansoprazole [Dexilant 30 mg Capsule] 30 mg PO DAILY 02/16/19 Spironolactone [Aldactone 25 mg Tablet] 25 mg PO DAILY 02/16/19 Allergies/Adverse Reactions: codeine [Codeine] Allergy (Intermediate, Verified 11/27/18 09:21) VOMITING meperidine HCl [From Demerol] Allergy (Intermediate, Verified 11/27/18 09:21) n/v Iodinated Contrast- Oral and IV Dye [Iodinated Contrast Media - IV Dye] Allergy (Mild, Verified 11/27/18 09:21) Itching levofloxacin [From Levaquin] Allergy (Mild, Verified 11/27/18 09:21) itching fentanyl Adverse Reaction (Verified 11/27/18 09:21) "can't wake up" BEE STINGS Allergy (Uncoded 06/02/18 20:03) Anaphylaxis Review of Systems Constitutional: PRESENT: anorexia, chills, fatigue, fever(s) Eyes: ABSENT: visual disturbances Ears: ABSENT: hearing changes Nose, Mouth, and Throat: ABSENT: as per HPI, headache(s), mouth pain, sore throat, vertigo, other Cardiovascular: ABSENT: chest pain, dyspnea on exertion, edema, orthropnea, palpitations Respiratory: ABSENT: cough, hemoptysis Gastrointestinal: PRESENT: abdominal pain, other - poor appetite and po intake of food and fluid Genitourinary: ABSENT: dysuria, hematuria Musculoskeletal: PRESENT: deformity - related to her arthritis and thoracic kyphosis Integumentary: ABSENT: rash, wounds Neurological: PRESENT: confusion, weakness - generalized. ABSENT: abnormal gait, abnormal speech, dizziness, focal weakness, syncope Psychiatric: ABSENT: anxiety, depression, homidical ideation, suicidal ideation Endocrine: ABSENT: cold intolerance, heat intolerance, polydipsia, polyuria Hematologic/Lymphatic: ABSENT: easy bleeding, easy bruising, lymphadenopathy Allergic/Immunologic: ABSENT: seasonal rhinorrhea Physical Exam Vital Signs: Temp Pulse Resp BP Pulse Ox 98.9 F 90 18 139/62 H 97 02/16/19 03:07 02/16/19 07:46 02/16/19 07:01 02/16/19 07:00 02/16/19 07:01 Intake & Output 02/15/19 02/16/19 02/17/19 06:59 06:59 06:59 Intake Total 500 Balance 500 Weight 50.3 kg General appearance: PRESENT: no acute distress Head exam: PRESENT: atraumatic, normocephalic Eye exam: PRESENT: conjunctiva pink, EOMI, PERRLA. ABSENT: scleral icterus Ear exam: PRESENT: normal external ear exam Mouth exam: PRESENT: moist - fairly moist Neck exam: PRESENT: full ROM. ABSENT: carotid bruit, JVD, lymphadenopathy, thyromegaly Respiratory exam: PRESENT: decreased breath sounds - at lung bases. ABSENT: crackles, rhonchi, wheezes Cardiovascular exam: PRESENT: RRR. ABSENT: diastolic murmur, rubs, systolic murmur Vascular exam: PRESENT: normal capillary refill. ABSENT: pallor GI/Abdominal exam: PRESENT: normal bowel sounds, soft, tenderness - RLQ region to deep palpation. ABSENT: ascites, guarding, organolmegaly, rebound Rectal exam: PRESENT: deferred Extremities exam: ABSENT: calf tenderness, joint swelling, pedal edema Musculoskeletal exam: PRESENT: full ROM, normal inspection. ABSENT: tenderness Neurological exam: PRESENT: altered, oriented to person Psychiatric exam: PRESENT: appropriate affect, normal mood. ABSENT: homicidal ideation, suicidal ideation Skin exam: PRESENT: dry, warm Results Laboratory Results: 02/16/19 00:20 02/16/19 02:42 02/16/19 02/16/19 02/16/19 00:20 00:20 00:20 WBC 7.7 RBC 4.07 Hgb 10.6 L Hct 32.3 L MCV 79 L MCH 26.1 L MCHC 32.9 RDW 25.3 H Plt Count 197 Seg Neutrophils % 76.4 Lymphocytes % 15.5 Monocytes % 6.0 Eosinophils % 0.9 Basophils % 1.2 Absolute Neutrophils 5.9 Absolute Lymphocytes 1.2 Absolute Monocytes 0.5 Absolute Eosinophils 0.1 Absolute Basophils 0.1 Sodium Cancelled Potassium Cancelled Chloride Cancelled Carbon Dioxide Cancelled Anion Gap Cancelled BUN Cancelled Creatinine Cancelled Est GFR ( Amer) Cancelled Est GFR (Non-Af Amer) Cancelled Glucose Cancelled Lactic Acid 2.7 H Calcium Cancelled Total Bilirubin Cancelled AST Cancelled ALT Cancelled Alkaline Phosphatase Cancelled Total Protein Cancelled Albumin Cancelled Lipase Cancelled Urine Color Urine Appearance Urine pH Ur Specific [place] Urine Protein Urine Glucose (UA) Urine Ketones Urine Blood Urine Nitrite Ur Leukocyte Esterase Urine WBC (Auto) Urine RBC (Auto) 02/16/19 02/16/19 01:14 02:42 WBC RBC Hgb Hct MCV MCH MCHC RDW Plt Count Seg Neutrophils % Lymphocytes % Monocytes % Eosinophils % Basophils % Absolute Neutrophils Absolute Lymphocytes Absolute Monocytes Absolute Eosinophils Absolute Basophils Sodium 135.1 L Potassium 3.9 Chloride 104 Carbon Dioxide 23 Anion Gap 8 BUN 17 Creatinine 0.61 Est GFR ( Amer) > 60 Est GFR (Non-Af Amer) > 60 Glucose 138 H Lactic Acid Calcium 8.4 Total Bilirubin 1.1 AST 65 H ALT 42 Alkaline Phosphatase 178 H Total Protein 6.1 L Albumin 2.7 L Lipase 49.6 Urine Color DARK YELLOW Urine Appearance SLIGHTLY-CLOUDY Urine pH 6.0 Ur Specific [place] 1.017 Urine Protein NEGATIVE Urine Glucose (UA) 150 H Urine Ketones NEGATIVE Urine Blood NEGATIVE Urine Nitrite NEGATIVE Ur Leukocyte Esterase NEGATIVE Urine WBC (Auto) 0 Urine RBC (Auto) 2 Impressions: Chest X-Ray 02/16/19 00:07 IMPRESSION: Bibasilar airspace opacities, which may represent atelectasis or pneumonia. copyright 2011 [employer]- All Rights Reserved Abdomen/Pelvis CT 02/16/19 03:41 IMPRESSION: Cirrhotic appearing liver with a mild amount of ascites. Mild thickening of the small bowel and ascending colon, which may be related to the ascites or liver disease or possibly an infectious/inflammatory process. Small hiatal hernia. TECHNICAL DOCUMENTATION: Quality ID # 436: Final reports with documentation of one or more dose reduction techniques (e.g., Automated exposure control, adjustment of the mA and/or kV according to patient size, use of iterative reconstruction technique) copyright 2011 [employer]- All Rights Reserved Assessment & Plan - Diagnosis (1) Altered mental status Qualifiers: Altered mental status type: unspecified Qualified Code(s): R41.82 - Altered mental status, unspecified (3) Pneumonia Qualifiers: Pneumonia type: due to unspecified organism Laterality: bilateral Lung location: lower lobe of lung Qualified Code(s): J18.1 - Lobar pneumonia, unspecified organism (6) GERD (gastroesophageal reflux disease) Qualifiers: Esophagitis presence: esophagitis presence not specified Qualified Code(s): K21.9 - Gastro-esophageal reflux disease without esophagitis - Time Time Spent: 50 to 70 Minutes Medications reviewed and adjusted accordingly: Yes Anticipated discharge: Home with Homehealth, SNF Within: Other - Inpatient Certification Based on my medical assessment, after consideration of the patient's comorbidities, presenting symptoms, or acuity I expect that the services needed warrant INPATIENT care.: Yes I certify that my determination is in accordance with my understanding of Medicare's requirements for reasonable and necessary INPATIENT services [42 CFR 412.3e].: Yes Medical Necessity: Significant Comorbidiites Make Outpatient Treatment Too Risky, Need Close Monitoring Due to Risk of Patient Decompensation, Need For IV Fluids, Need For Continuous Telemetry Monitoring, Need for IV Antibiotics, Risk of Complication if Not Cared For in Hospital, Risk of Diagnosis Which Will Require Inpatient Eval/Care/Monitoring Post Hospital Care: D/C Stereo Equipment Installer Documentation, D/C or Transfer Summary - Plan Summary Plan Summary: See admitting attending physician orders for details of her care plan. I discussed with her daughter regarding disposition and presently requested for SNF rehabilitation upon discharge.
[2019-02-16] MEDS ORDERED: GLUCAGON,HUMAN RECOMB 1 MG INJ IM PRN (11:24)
[2019-02-16] MEDS ORDERED: DEXTROSE 50%-WATER 25 GM/50 ML DISP.SYRIN IV PRN ×2 (11:24)
[2019-02-16] MEDS ORDERED: ACETAMINOPHEN 325 MG TABLET PO PRN (11:24)
[2019-02-16] MEDS ORDERED: DEXTROSE 40% GEL 15 GM TUBE PO PRN ×2 (11:24)
[2019-02-16] MEDS: NORMAL SALINE 1000 ML 1,000 ML IV PRN (11:34)
[2019-02-16] MEDS: SPIRONOLACTONE 25 MG TABLET PO SCH (11:52)
[2019-02-16] MEDS ORDERED: AMLODIPINE BESYLATE 5 MG TABLET PO SCH (12:00)
[2019-02-16] MEDS ORDERED: NADOLOL 40 MG TABLET PO SCH (12:00)
[2019-02-16] MEDS: PIPERACILLIN SODIUM/TAZOBACTAM 3.375 GM in NORMAL SALINE 100 ML IV SCH ×2 (13:14→17:34)
[2019-02-16] MEDS: NADOLOL 40 MG TABLET PO SCH (14:27)
[2019-02-16] MEDS: AMLODIPINE BESYLATE 5 MG TABLET PO SCH (14:27)
[2019-02-16] MEDS: INSULIN LISPRO 100 UNIT/ML 3 ML VIAL SUBCUT SCH ×2 (17:34→22:57)
[2019-02-17] MEDS: PIPERACILLIN SODIUM/TAZOBACTAM 3.375 GM in NORMAL SALINE 100 ML IV SCH ×4 (00:52→18:50)
[2019-02-17] MEDS: PANTOPRAZOLE SODIUM 40 MG TABLET.DR PO SCH (06:35)
[2019-02-17] MEDS: INSULIN LISPRO 100 UNIT/ML 3 ML VIAL SUBCUT SCH ×4 (10:28→22:12)
[2019-02-17] MEDS: NADOLOL 40 MG TABLET PO SCH (10:31)
[2019-02-17] MEDS: SPIRONOLACTONE 25 MG TABLET PO SCH (10:32)
[2019-02-17] MEDS: ENOXAPARIN SODIUM INJ 40 MG/0.4 ML DISP.SYRIN SUBCUT SCH (10:32)
[2019-02-17] MEDS: AMLODIPINE BESYLATE 5 MG TABLET PO SCH (10:32)
[2019-02-17 12:39] LABS: ABSOLUTE EOSINOPHILS # (AUTO) 0.1 10^3/uL (0.0-0.6); ABSOLUTE LYMPHOCYTES (AUTO) 2.3 10^3/uL (0.5-4.7); ABSOLUTE MONOCYTES (AUTO) 0.9 10^3/uL (0.1-1.4); ABSOLUTE NEUT (AUTO) 9.4 10^3/uL (1.7-8.2); BASOPHILS % (AUTO) 0.4 % (0-2); EOSINOPHILS % (AUTO) 0.4 % (0-6); HEMATOCRIT 26.5 % (36.0-47.0); HEMOGLOBIN 8.7 g/dL (12.0-15.5); LYMPHOCYTES % (AUTO) 17.9 % (13-45); MEAN CORPUSCULAR HGB CONC 32.7 g/dL (32.0-36.0); MEAN CORPUSCULAR VOLUME 80 fl (80-97); PLATELET COUNT 163 10^3/uL (150-450); RED BLOOD COUNT 3.33 10^6/uL (3.72-5.28); RED CELL DISTRIBUTION WIDTH 25.4 % (11.5-14.0); SEGMENTED NEUTROPHILS % (AUTO) 74.3 % (42-78); TOTAL CELLS COUNTED % (AUTO) 100 %; WHITE BLOOD COUNT 12.7 10^3/uL (4.0-10.5)
[2019-02-17 12:55] LABS: ALANINE AMINOTRANSFERASE 40 U/L (9-52); ALBUMIN 2.6 g/dL (3.5-5.0); ALKALINE PHOSPHATASE 155 U/L (38-126); ANION GAP 9 (5-19); ASPARTATE AMINO TRANSFERASE 47 U/L (14-36); BILIRUBIN,DIRECT 0.6 mg/dL (0.0-0.4); BLOOD UREA NITROGEN 20 mg/dL (7-20); CALCIUM 8.3 mg/dL (8.4-10.2); CARBON DIOXIDE 19 mmol/L (22-30); CHLORIDE 107 mmol/L (98-107); GLUCOSE 139 mg/dL (75-110); POTASSIUM 3.6 mmol/L (3.6-5.0); SODIUM 134.8 mmol/L (137-145); TOTAL PROTEIN 6.1 g/dL (6.3-8.2)
[2019-02-17 13:56] LABS: POLYCHROMASIA 1+
[2019-02-17 13:57] LABS: ANISOCYTOSIS 3+; BURR CELLS SLIGHT; HYPOCHROMASIA SLIGHT; POIKILOCYTOSIS 1+
[2019-02-17 13:59] LABS: OVALOCYTES SLIGHT
[2019-02-17 14:02] LABS: SCHISTOCYTES SLIGHT; TEAR DROP CELLS SLIGHT
[2019-02-17 14:04] LABS: PLATELET COMMENT ADEQUATE
[2019-02-17] MEDS: NORMAL SALINE 1000 ML 1,000 ML IV PRN (18:53)
--- NOTE | 2019-02-17 20:07 | PDOC PROGRESS REPORT ---
Subjective Progress Note for:: 02/17/19 Subjective:: Patient participated in PT session earlier today. No chest pain or difficulty with breathing. There is improvement in abdominal pain. No diarrhea, nausea or vomiting. No reported fever or chills. Reason For Visit: ALTERED MENTAL STATUS,COLITIS,BIBASILAR PNEUMONIA Physical Exam Vital Signs: Temp Pulse Resp BP Pulse Ox 97.3 F 83 18 125/54 L 100 02/17/19 07:17 02/17/19 19:00 02/17/19 07:17 02/17/19 07:17 02/17/19 07:17 Intake & Output 02/16/19 02/17/19 02/18/19 06:59 06:59 06:59 Intake Total 500 2593 825 Output Total 850 350 Balance 500 1743 475 Weight 54 kg General appearance: PRESENT: no acute distress, thin Head exam: PRESENT: atraumatic, normocephalic Eye exam: PRESENT: conjunctiva pink. ABSENT: scleral icterus Ear exam: PRESENT: normal external ear exam Mouth exam: PRESENT: moist Respiratory exam: PRESENT: clear to auscultation brigida, decreased breath sounds Cardiovascular exam: PRESENT: RRR. ABSENT: diastolic murmur, rubs, systolic mur mur Vascular exam: ABSENT: pallor GI/Abdominal exam: PRESENT: normal bowel sounds, soft. ABSENT: distended, guarding, mass, organolmegaly, rebound, tenderness Extremities exam: ABSENT: pedal edema Neurological exam: PRESENT: alert, awake, oriented to person, oriented to place, oriented to time, oriented to situation, CN II-XII grossly intact. ABSENT: motor sensory deficit Psychiatric exam: PRESENT: appropriate affect, normal mood. ABSENT: homicidal ideation, suicidal ideation Skin exam: PRESENT: dry, warm Results Laboratory Results: 02/17/19 11:53 02/17/19 11:53 02/17/19 02/17/19 11:53 11:53 WBC 12.7 H RBC 3.33 L Hgb 8.7 L Hct 26.5 L MCV 80 MCH 26.0 L MCHC 32.7 RDW 25.4 H Plt Count 163 Seg Neutrophils % 74.3 Lymphocytes % 17.9 Monocytes % 7.0 Eosinophils % 0.4 Basophils % 0.4 Absolute Neutrophils 9.4 H Absolute Lymphocytes 2.3 Absolute Monocytes 0.9 Absolute Eosinophils 0.1 Absolute Basophils 0.0 Sodium 134.8 L Potassium 3.6 Chloride 107 Carbon Dioxide 19 L Anion Gap 9 BUN 20 Creatinine 0.65 Est GFR ( Amer) > 60 Est GFR (Non-Af Amer) > 60 Glucose 139 H Calcium 8.3 L Total Bilirubin 1.0 AST 47 H ALT 40 Alkaline Phosphatase 155 H Total Protein 6.1 L Albumin 2.6 L Impressions: Chest X-Ray 02/16/19 00:07 IMPRESSION: Bibasilar airspace opacities, which may represent atelectasis or pneumonia. copyright 2010 [employer]- All Rights Reserved Abdomen/Pelvis CT 02/16/19 03:41 IMPRESSION: Cirrhotic appearing liver with a mild amount of ascites. Mild thickening of the small bowel and ascending colon, which may be related to the ascites or liver disease or possibly an infectious/inflammatory process. Small hiatal hernia. TECHNICAL DOCUMENTATION: Quality ID # 436: Final reports with documentation of one or more dose reduction techniques (e.g., Automated exposure control, adjustment of the mA and/or kV according to patient size, use of iterative reconstruction technique) copyright 2010 [employer]- All Rights Reserved Assessment & Plan - Diagnosis (1) Altered mental status Qualifiers: Altered mental status type: disorientation Qualified Code(s): R41.0 - Disorientation, unspecified Is this a current diagnosis for this admission?: Yes (2) Colitis Is this a current diagnosis for this admission?: Yes (3) Pneumonia Qualifiers: Pneumonia type: due to unspecified organism Laterality: bilateral Lung location: lower lobe of lung Qualified Code(s): J18.1 - Lobar pneumonia, unspecified organism Is this a current diagnosis for this admission?: Yes (4) Diabetes mellitus type 2 in nonobese Is this a current diagnosis for this admission?: Yes (5) Essential hypertension Is this a current diagnosis for this admission?: Yes (6) GERD (gastroesophageal reflux disease) Qualifiers: Esophagitis presence: esophagitis presence not specified Qualified Code(s): K21.9 - Gastro-esophageal reflux disease without esophagitis Is this a current diagnosis for this admission?: Yes (7) Chronic pain syndrome Is this a current diagnosis for this admission?: Yes (8) Disc disease, degenerative, lumbar or lumbosacral Is this a current diagnosis for this admission?: Yes (9) Postural kyphosis, thoracic region Is this a current diagnosis for this admission?: Yes (10) Osteoarthritis involving multiple joints on both sides of body Is this a current diagnosis for this admission?: Yes (11) Infection due to gram-negative bacteria Is this a current diagnosis for this admission?: Yes Plan: Continue IV Zosyn coverage. Follow up on blood and urine culture findings. - Time Time Spent with patient: 25-34 minutes Medications reviewed and adjusted accordingly: Yes Anticipated discharge: SNF - for short term rehabilitation. Within: Other - Inpatient Certification Based on my medical assessment, after consideration of the patient's comorbidities, presenting symptoms, or acuity I expect that the services needed warrant INPATIENT care.: Yes I certify that my determination is in accordance with my understanding of Medicare's requirements for reasonable and necessary INPATIENT services [42 CFR 412.3e].: Yes Medical Necessity: Significant Comorbidiites Make Outpatient Treatment Too Risky, Need Close Monitoring Due to Risk of Patient Decompensation, Need For IV Fluids, Need For Continuous Telemetry Monitoring, Need for IV Antibiotics, Risk of Complication if Not Cared For in Hospital, Risk of Diagnosis Which Will Require Inpatient Eval/Care/Monitoring Post Hospital Care: D/C or Transfer Summary - as per daughter request for rehabilitation. - Plan Summary Plan Summary: Continue current medication management. Obtain CBC with diff and BMP in AM.
[2019-02-18] MEDS: PIPERACILLIN SODIUM/TAZOBACTAM 3.375 GM in NORMAL SALINE 100 ML IV SCH ×4 (01:00→17:54)
[2019-02-18] MEDS: PANTOPRAZOLE SODIUM 40 MG TABLET.DR PO SCH (06:21)
[2019-02-18 07:46] LABS: ABSOLUTE EOSINOPHILS # (AUTO) 0.2 10^3/uL (0.0-0.6); ABSOLUTE LYMPHOCYTES (AUTO) 1.4 10^3/uL (0.5-4.7); ABSOLUTE MONOCYTES (AUTO) 0.7 10^3/uL (0.1-1.4); ABSOLUTE NEUT (AUTO) 5.5 10^3/uL (1.7-8.2); BASOPHILS % (AUTO) 0.4 % (0-2); EOSINOPHILS % (AUTO) 3.2 % (0-6); HEMOGLOBIN 8.8 g/dL (12.0-15.5); LYMPHOCYTES % (AUTO) 17.5 % (13-45); MEAN CORPUSCULAR HGB CONC 33.8 g/dL (32.0-36.0); MEAN CORPUSCULAR VOLUME 80 fl (80-97); MONOCYTES % (AUTO) 8.6 % (3-13); PLATELET COUNT 150 10^3/uL (150-450); RED BLOOD COUNT 3.25 10^6/uL (3.72-5.28); RED CELL DISTRIBUTION WIDTH 25.9 % (11.5-14.0); SEGMENTED NEUTROPHILS % (AUTO) 70.3 % (42-78); TOTAL CELLS COUNTED % (AUTO) 100 %; WHITE BLOOD COUNT 7.8 10^3/uL (4.0-10.5)
[2019-02-18 07:51] LABS: ALANINE AMINOTRANSFERASE 42 U/L (9-52); ALBUMIN 2.4 g/dL (3.5-5.0); ALKALINE PHOSPHATASE 184 U/L (38-126); ANION GAP 8 (5-19); ASPARTATE AMINO TRANSFERASE 42 U/L (14-36); BILIRUBIN,DIRECT 0.6 mg/dL (0.0-0.4); BILIRUBIN,TOTAL 1.1 mg/dL (0.2-1.3); BLOOD UREA NITROGEN 20 mg/dL (7-20); CARBON DIOXIDE 21 mmol/L (22-30); CHLORIDE 107 mmol/L (98-107); GLUCOSE 96 mg/dL (75-110); POTASSIUM 4.3 mmol/L (3.6-5.0); SODIUM 135.7 mmol/L (137-145); TOTAL PROTEIN 5.5 g/dL (6.3-8.2)
[2019-02-18 09:10] LABS: ANISOCYTOSIS 3+; HYPOCHROMASIA SLIGHT; OVALOCYTES 1+; PLATELET COMMENT ADEQUATE; POIKILOCYTOSIS 1+; POLYCHROMASIA SLIGHT; SCHISTOCYTES SLIGHT
[2019-02-18] MEDS: INSULIN LISPRO 100 UNIT/ML 3 ML VIAL SUBCUT SCH ×4 (09:15→22:18)
[2019-02-18] MEDS: NADOLOL 40 MG TABLET PO SCH (10:23)
[2019-02-18] MEDS: AMLODIPINE BESYLATE 5 MG TABLET PO SCH (10:24)
[2019-02-18] MEDS: SPIRONOLACTONE 25 MG TABLET PO SCH (10:24)
[2019-02-18] MEDS: ENOXAPARIN SODIUM INJ 40 MG/0.4 ML DISP.SYRIN SUBCUT SCH (10:25)
[2019-02-18] MEDS: NORMAL SALINE 1000 ML 1,000 ML IV PRN (17:25)
--- NOTE | 2019-02-18 19:05 | PDOC PROGRESS REPORT ---
Subjective Progress Note for:: 02/18/19 Subjective:: Patient denied any chest pain or difficulty with breathing. No abdominal pain, diarrhea, nausea or vomiting. No reported fever or chills. Reason For Visit: ALTERED MENTAL STATUS,COLITIS,BIBASILAR PNEUMONIA Physical Exam Vital Signs: Temp Pulse Resp BP Pulse Ox 98.0 F 80 20 112/45 L 97 02/18/19 03:45 02/18/19 03:45 02/18/19 03:45 02/18/19 03:45 02/18/19 03:45 Intake & Output 02/17/19 02/18/19 02/19/19 06:59 06:59 06:59 Intake Total 2593 1115 100 Output Total 850 750 Balance 1743 365 100 Weight 54 kg 55 kg Physical Exam: General appearance: PRESENT: no acute distress, thin Head exam: PRESENT: atraumatic, normocephalic Eye exam: PRESENT: conjunctiva pink. ABSENT: pallor, scleral icterus Ear exam: PRESENT: normal external ear exam Mouth exam: PRESENT: moist Respiratory exam: PRESENT: clear to auscultation brigida, decreased breath sounds Cardiovascular exam: PRESENT: RRR. ABSENT: diastolic murmur, rubs, systolic murmur GI/Abdominal exam: PRESENT: normal bowel sounds, soft. ABSENT: distended, g uarding, mass, organomegaly, rebound, tenderness Extremities exam: ABSENT: pedal edema Neurological exam: PRESENT: alert, awake, oriented to person, oriented to place, oriented to time, oriented to situation, CN II-XII grossly intact. ABSENT: motor sensory deficit Psychiatric exam: PRESENT: appropriate affect, normal mood. ABSENT: homicidal ideation, suicidal ideation Skin exam: PRESENT: dry, warm Results Laboratory Results: 02/18/19 07:10 02/17/19 02/17/19 02/18/19 11:53 11:53 07:10 WBC 12.7 H RBC 3.33 L Hgb 8.7 L Hct 26.5 L MCV 80 MCH 26.0 L MCHC 32.7 RDW 25.4 H Plt Count 163 Seg Neutrophils % 74.3 Lymphocytes % 17.9 Monocytes % 7.0 Eosinophils % 0.4 Basophils % 0.4 Absolute Neutrophils 9.4 H Absolute Lymphocytes 2.3 Absolute Monocytes 0.9 Absolute Eosinophils 0.1 Absolute Basophils 0.0 Sodium 134.8 L 135.7 L Potassium 3.6 4.3 Chloride 107 107 Carbon Dioxide 19 L 21 L Anion Gap 9 8 BUN 20 20 Creatinine 0.65 0.69 Est GFR ( Amer) > 60 > 60 Est GFR (Non-Af Amer) > 60 > 60 Glucose 139 H 96 Calcium 8.3 L 8.0 L Total Bilirubin 1.0 1.1 AST 47 H 42 H ALT 40 42 Alkaline Phosphatase 155 H 184 H Total Protein 6.1 L 5.5 L Albumin 2.6 L 2.4 L 02/16/19 02:42 Blood Blood Culture - Final Escherichia Coli Impressions: Chest X-Ray 02/16/19 00:07 IMPRESSION: Bibasilar airspace opacities, which may represent atelectasis or pneumonia. copyright 2010 [employer]- All Rights Reserved Abdomen/Pelvis CT 02/16/19 03:41 IMPRESSION: Cirrhotic appearing liver with a mild amount of ascites. Mild thickening of the small bowel and ascending colon, which may be related to the ascites or liver disease or possibly an infectious/inflammatory process. Small hiatal hernia. TECHNICAL DOCUMENTATION: Quality ID # 436: Final reports with documentation of one or more dose reduction techniques (e.g., Automated exposure control, adjustment of the mA and/or kV according to patient size, use of iterative reconstruction technique) copyright 2010 [employer]- All Rights Reserved Assessment & Plan - Diagnosis (1) Altered mental status Qualifiers: Altered mental status type: disorientation Qualified Code(s): R41.0 - Disorientation, unspecified Is this a current diagnosis for this admission?: Yes (2) E. coli septicemia Is this a current diagnosis for this admission?: Yes Plan: Maintain on IV Zosyn coverage. (3) Colitis Is this a current diagnosis for this admission?: Yes (4) Pneumonia Qualifiers: Pneumonia type: due to unspecified organism Laterality: bilateral Lung location: lower lobe of lung Qualified Code(s): J18.1 - Lobar pneumonia, unspecified organism Is this a current diagnosis for this admission?: Yes (5) Diabetes mellitus type 2 in nonobese Is this a current diagnosis for this admission?: Yes (6) Essential hypertension Is this a current diagnosis for this admission?: Yes (7) GERD (gastroesophageal reflux disease) Qualifiers: Esophagitis presence: esophagitis presence not specified Qualified Code(s): K21.9 - Gastro-esophageal reflux disease without esophagitis Is this a current diagnosis for this admission?: Yes (8) Chronic pain syndrome Is this a current diagnosis for this admission?: Yes (9) Disc disease, degenerative, lumbar or lumbosacral Is this a current diagnosis for this admission?: Yes (10) Postural kyphosis, thoracic region Is this a current diagnosis for this admission?: Yes (11) Osteoarthritis involving multiple joints on both sides of body Is this a current diagnosis for this admission?: Yes - Time Time Spent with patient: 25-34 minutes Medications reviewed and adjusted accordingly: Yes Anticipated discharge: Home with Homehealth Within: Other - Inpatient Certification Based on my medical assessment, after consideration of the patient's comorbidities, presenting symptoms, or acuity I expect that the services needed warrant INPATIENT care.: Yes I certify that my determination is in accordance with my understanding of Medicare's requirements for reasonable and necessary INPATIENT services [42 CFR 412.3e].: Yes Medical Necessity: Significant Comorbidiites Make Outpatient Treatment Too Risky, Need Close Monitoring Due to Risk of Patient Decompensation, Need For IV Fluids, Need For Continuous Telemetry Monitoring, Need for IV Antibiotics, Risk of Complication if Not Cared For in Hospital, Risk of Diagnosis Which Will Require Inpatient Eval/Care/Monitoring Post Hospital Care: D/C Director Of Marketing And Promotions Documentation - Plan Summary Plan Summary: Continue IV Zosyn coverage. Maintain on all other current medication management. Patient expressed wish to be discharged home when medically cleared with home health agency services as appropriate.
[2019-02-19] MEDS: PIPERACILLIN SODIUM/TAZOBACTAM 3.375 GM in NORMAL SALINE 100 ML IV SCH ×4 (00:02→17:59)
[2019-02-19] MEDS: PANTOPRAZOLE SODIUM 40 MG TABLET.DR PO SCH (05:40)
[2019-02-19] MEDS: INSULIN LISPRO 100 UNIT/ML 3 ML VIAL SUBCUT SCH ×5 (08:25→21:55)
[2019-02-19] MEDS: NORMAL SALINE 1000 ML 1,000 ML IV PRN ×2 (08:47→21:52)
[2019-02-19] MEDS: AMLODIPINE BESYLATE 5 MG TABLET PO SCH (10:18)
[2019-02-19] MEDS: ENOXAPARIN SODIUM INJ 40 MG/0.4 ML DISP.SYRIN SUBCUT SCH (10:19)
[2019-02-19] MEDS: SPIRONOLACTONE 25 MG TABLET PO SCH (10:19)
[2019-02-19] MEDS: NADOLOL 40 MG TABLET PO SCH (10:19)
--- NOTE | 2019-02-19 19:06 | PDOC PROGRESS REPORT ---
Subjective Progress Note for:: 02/19/19 Subjective:: No chest pain or difficulty with breathing. No abdominal pain, diarrhea, nausea or vomiting. No reported fever or chills. Reason For Visit: ALTERED MENTAL STATUS,COLITIS,BIBASILAR PNEUMONIA Physical Exam Vital Signs: Temp Pulse Resp BP Pulse Ox 97.8 F 87 20 135/51 H 97 02/19/19 03:40 02/19/19 03:40 02/19/19 03:40 02/19/19 03:40 02/19/19 03:40 Intake & Output 02/18/19 02/19/19 02/20/19 06:59 06:59 06:59 Intake Total 1115 2210 Output Total 750 1450 Balance 365 760 Weight 55 kg 56.1 kg Physical Exam: General appearance: PRESENT: no acute distress, thin Head exam: PRESENT: atraumatic, normocephalic Eye exam: PRESENT: conjunctiva pink. ABSENT: pallor, scleral icterus Ear exam: PRESENT: normal external ear exam Mouth exam: PRESENT: moist Respiratory exam: PRESENT: clear to auscultation brigida, decreased breath sounds Cardiovascular exam: PRESENT: RRR. ABSENT: diastolic murmur, rubs, systolic mur mur GI/Abdominal exam: PRESENT: normal bowel sounds, soft. ABSENT: distended, guarding, mass, organomegaly, rebound, tenderness Extremities exam: ABSENT: pedal edema Neurological exam: PRESENT: alert, awake, oriented to person, oriented to place, oriented to time, oriented to situation, CN II-XII grossly intact. ABSENT: motor sensory deficit Psychiatric exam: PRESENT: appropriate affect, normal mood. ABSENT: homicidal ideation, suicidal ideation Skin exam: PRESENT: dry, warm Results Laboratory Results: 02/18/19 07:10 02/18/19 07:10 02/18/19 07:10 WBC 7.8 RBC 3.25 L Hgb 8.8 L Hct 26.0 L MCV 80 MCH 27.0 MCHC 33.8 RDW 25.9 H Plt Count 150 Seg Neutrophils % 70.3 Lymphocytes % 17.5 Monocytes % 8.6 Eosinophils % 3.2 Basophils % 0.4 Absolute Neutrophils 5.5 Absolute Lymphocytes 1.4 Absolute Monocytes 0.7 Absolute Eosinophils 0.2 Absolute Basophils 0.0 02/16/19 02:42 Blood Blood Culture - Final Escherichia Coli Impressions: Chest X-Ray 02/16/19 00:07 IMPRESSION: Bibasilar airspace opacities, which may represent atelectasis or pneumonia. copyright 2010 [employer]- All Rights Reserved Abdomen/Pelvis CT 02/16/19 03:41 IMPRESSION: Cirrhotic appearing liver with a mild amount of ascites. Mild thickening of the small bowel and ascending colon, which may be related to the ascites or liver disease or possibly an infectious/inflammatory process. Small hiatal hernia. TECHNICAL DOCUMENTATION: Quality ID # 436: Final reports with documentation of one or more dose reduction techniques (e.g., Automated exposure control, adjustment of the mA and/or kV according to patient size, use of iterative reconstruction technique) copyright 2010 [employer]- All Rights Reserved Assessment & Plan - Diagnosis (1) Altered mental status Qualifiers: Altered mental status type: disorientation Qualified Code(s): R41.0 - Disorientation, unspecified Is this a current diagnosis for this admission?: Yes (2) E. coli septicemia Is this a current diagnosis for this admission?: Yes (3) Colitis Is this a current diagnosis for this admission?: Yes (4) Pneumonia Qualifiers: Pneumonia type: due to unspecified organism Laterality: bilateral Lung location: lower lobe of lung Qualified Code(s): J18.1 - Lobar pneumonia, unspecified organism Is this a current diagnosis for this admission?: Yes (5) Diabetes mellitus type 2 in nonobese Is this a current diagnosis for this admission?: Yes (6) Essential hypertension Is this a current diagnosis for this admission?: Yes (7) GERD (gastroesophageal reflux disease) Qualifiers: Esophagitis presence: esophagitis presence not specified Qualified Code(s): K21.9 - Gastro-esophageal reflux disease without esophagitis Is this a current diagnosis for this admission?: Yes (8) Chronic pain syndrome Is this a current diagnosis for this admission?: Yes (9) Disc disease, degenerative, lumbar or lumbosacral Is this a current diagnosis for this admission?: Yes (10) Postural kyphosis, thoracic region Is this a current diagnosis for this admission?: Yes (11) Osteoarthritis involving multiple joints on both sides of body Is this a current diagnosis for this admission?: Yes - Time Time Spent with patient: 25-34 minutes Medications reviewed and adjusted accordingly: Yes Anticipated discharge: Home with Homehealth Within: Other - Inpatient Certification Based on my medical assessment, after consideration of the patient's comorbidities, presenting symptoms, or acuity I expect that the services needed warrant INPATIENT care.: Yes I certify that my determination is in accordance with my understanding of Medicare's requirements for reasonable and necessary INPATIENT services [42 CFR 412.3e].: Yes Medical Necessity: Significant Comorbidiites Make Outpatient Treatment Too Risky, Need Close Monitoring Due to Risk of Patient Decompensation, Risk of Complication if Not Cared For in Hospital, Risk of Diagnosis Which Will Require Inpatient Eval/Care/Monitoring Post Hospital Care: D/C Comp Field Case Manager Documentation - Plan Summary Plan Summary: D/C IV Zosyn. Start on Augmentin 500/125 mg po [id number]. Continue all other current medication management. Possible discharge home tomorrow with [employer] services.
[2019-02-19] MEDS: AMOXICILLIN TR/POT CLAVULANATE 500-125 MG TAB PO SCH (21:52)
[2019-02-20] MEDS: PANTOPRAZOLE SODIUM 40 MG TABLET.DR PO SCH (05:21)
[2019-02-20] MEDS: AMOXICILLIN TR/POT CLAVULANATE 500-125 MG TAB PO SCH (05:21)
[2019-02-20] MEDS: INSULIN LISPRO 100 UNIT/ML 3 ML VIAL SUBCUT SCH (07:54)
[2019-02-20 08:24] VITALS: BP 140/59
[2019-02-20] MEDS: NADOLOL 40 MG TABLET PO SCH (10:22)
[2019-02-20] MEDS: ENOXAPARIN SODIUM INJ 40 MG/0.4 ML DISP.SYRIN SUBCUT SCH (10:23)
[2019-02-20] MEDS: AMLODIPINE BESYLATE 5 MG TABLET PO SCH (10:23)
[2019-02-20] MEDS: SPIRONOLACTONE 25 MG TABLET PO SCH (10:23)
--- NOTE | 2019-02-23 19:37 | PDOC DISCHARGE SUMMARY ---
General - Admit/Disc Date/PCP Admission Date/Primary Care Provider: 02/16/19 06:04 ALISSA MCKEON Discharge Date: 02/20/19 - Discharge Diagnosis (1) Altered mental status Is this a current diagnosis for this admission?: Yes (2) E. coli septicemia Is this a current diagnosis for this admission?: Yes (3) Colitis Is this a current diagnosis for this admission?: Yes (4) Pneumonia Is this a current diagnosis for this admission?: Yes (5) Diabetes mellitus type 2 in nonobese Is this a current diagnosis for this admission?: Yes (6) Essential hypertension Is this a current diagnosis for this admission?: Yes (7) GERD (gastroesophageal reflux disease) Is this a current diagnosis for this admission?: Yes (8) Chronic pain syndrome Is this a current diagnosis for this admission?: Yes (9) Disc disease, degenerative, lumbar or lumbosacral Is this a current diagnosis for this admission?: Yes (10) Postural kyphosis, thoracic region Is this a current diagnosis for this admission?: Yes (11) Osteoarthritis involving multiple joints on both sides of body Is this a current diagnosis for this admission?: Yes - Additional Information Resuscitation Status: Full Code - except for situation such as stroke or massive heart attack as per my discussion with her daughter Joanna Newell. Prescriptions: Amox Tr/Potassium Clavulanate [Augmentin "500" Tablet] 1 tab PO Q8 #20 tablet Home Medications: Amlodipine Besylate [Norvasc 5 mg Tablet] 5 mg PO DAILY 07/20/18 Duloxetine HCl [Cymbalta] 60 mg PO Q12 07/20/18 Nadolol [Corgard 40 mg Tablet] 40 mg PO DAILY 07/20/18 Ondansetron HCl [Zofran 4 mg Tablet] 4 mg PO Q4HP PRN 07/20/18 Dexlansoprazole [Dexilant 30 mg Capsule] 30 mg PO DAILY 02/16/19 Spironolactone [Aldactone 25 mg Tablet] 25 mg PO DAILY 02/16/19 Amox Tr/Potassium Clavulanate [Augmentin "500" Tablet] 1 tab PO Q8 #20 tablet 02/20/19 History of Present Illness History of Present Illness: GIOVANNY RODRÍGUEZ is a 79 year old female patient known to my practice who presented to the ED via EMS with complain of abdominal pain. Patient was admini stered Fentanyl in the field and she has not been able to contribute much to her medical history. I spoke with her daughter Joanna Hernández who informed me that she was recently discharged from [facility] in [place], [place] with hospital acquired pneumonia that was treated with oral antibiotic and subsequent chest X ray reported as clear of the pneumonia. Daughter reported that over the last one week patient has been more confused with poor oral food and fluid intake, weight loss and reported feeling cold all the time. She sustained a fall at home last night in her attempt to transfer from chair. There was no reported injury.Due to persistence of her abdominal pain EMS was activated and she was transferred to the ED. Due to her abdominal pain she received a dose of Fentanyl by the EMS crew and subsequently was not able to contribute to her medical history in the ED. Her initial ED evaluation revealed temperature of 101F and abdominal tenderness in RLQ region to palpation. Her chest X ray did suggest bibasilar air space disease process and her CT abdomen and pelvis revealed segmental wall thickening of the small bowel and ascending colon suggestive of inflammatory versus infectious process. She was admitted as case of Colitis, bibasilar pneumonia and altered mental status. 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 Hospital Course Hospital Course: She was admitted as case of colitis and pneumonia. She was managed with IV Zosyn and eventually transition to oral Augmentin therapy based on her blood culture growth of E. coli sensitivity findings. Her presenting symptoms including c onfusion, abdominal pain, and fever did resolved. She participated in physical therapy session and ambulate with walker assistance. She tolerated oral feeding and medication administration. She refused recommended SNF rehabilitation program. She will be discharged home with home health agency services including visiting nurse, aide and physical therapist. She will follow up in the office as instructed upon discharge. Physical Exam Vital Signs: Temp Pulse Resp BP Pulse Ox 97.4 F 76 16 132/54 H 97 02/20/19 03:26 02/20/19 07:00 02/20/19 03:26 02/20/19 03:26 02/20/19 03:26 Intake & Output 02/19/19 02/20/19 02/21/19 06:59 06:59 06:59 Intake Total 3210 2543 Output Total 1450 650 Balance 1760 1893 Weight 56.1 kg 60.3 kg Physical Exam: General appearance: PRESENT: no acute distress, thin Head exam: PRESENT: atraumatic, normocephalic Eye exam: PRESENT: conjunctiva pink. ABSENT: pallor, scleral icterus Ear exam: PRESENT: normal external ear exam Mouth exam: PRESENT: moist Respiratory exam: PRESENT: clear to auscultation brigida, decreased breath sounds Cardiovascular exam: PRESENT: RRR. ABSENT: diastolic murmur, rubs, systolic murmur GI/Abdominal exam: PRESENT: normal bowel sounds, soft. ABSENT: distended, guarding, mass, organomegaly, rebound, tenderness Extremities exam: ABSENT: pedal edema Neurological exam: PRESENT: alert, awake, oriented to person, oriented to place, oriented to time, oriented to situation, CN II-XII grossly intact. ABSENT: motor sensory deficit Psychiatric exam: PRESENT: appropriate affect, normal mood. ABSENT: homicidal ideation, suicidal ideation Skin exam: PRESENT: dry, warm Results Laboratory Results: 02/18/19 07:10 02/18/19 07:10 Impressions: Chest X-Ray 02/16/19 00:07 IMPRESSION: Bibasilar airspace opacities, which may represent atelectasis or pneumonia. copyright 2011 [employer]- All Rights Reserved Abdomen/Pelvis CT 02/16/19 03:41 IMPRESSION: Cirrhotic appearing liver with a mild amount of ascites. Mild thickening of the small bowel and ascending colon, which may be related to the ascites or liver disease or possibly an infectious/inflammatory process. Small hiatal hernia. TECHNICAL DOCUMENTATION: Quality ID # 436: Final reports with documentation of one or more dose reduction techniques (e.g., Automated exposure control, adjustment of the mA and/or kV according to patient size, use of iterative reconstruction technique) copyright 2011 [employer]- All Rights Reserved Qualifiers - * PATIENT BEING DISCHARGED WITH ANY OF THE FOLLOWING DIAGNOSIS: No Acute Heart Failure Is this a Heart Failure Patient?: No Plan Discharge Plan: D/C home today. Follow up in the office as instructed upon discharge.
== END 2019-02-20 10:58 | disposition home health service (06) | DRG 871 ==
LOC: ER 23:56 → EH 02-16 06:04 → 3N 02-16 07:16
PROVIDERS: ADMIT Internal Medicine Geriatric Medicine; ATTEND Internal Medicine Geriatric Medicine
DX: A41.51 Sepsis due to Escherichia coli [E. coli] (principal); J18.1 Lobar pneumonia, unspecified organism; K52.9 Noninfective gastroenteritis and colitis, unspecified; E11.8 Type 2 diabetes mellitus with unspecified complications; I10 Essential (primary) hypertension; K21.9 Gastro-esophageal reflux disease without esophagitis; K74.69 Other cirrhosis of liver; M81.0 Age-related osteoporosis without current pathological fracture; G89.4 Chronic pain syndrome; M40.04 Postural kyphosis, thoracic region; M51.37 Other intervertebral disc degeneration, lumbosacral region; F32.9 Major depressive disorder, single episode, unspecified
CPT/HCPCS: 36415; 51701; 71045; 74177; 80053; 81001; 82962; 83605; 83690; 85025; 87040; 87077; 87186; 93005; 93010; 96361; 96374; 96375; 99285; J1650; J1815; J2543; J2930; J3490; J7030; J7040; J7050; S0028

== ENCOUNTER 2019-03-12 07:39 | Emergency (ER) | payer MEDICARE, OTHER ==
[2019-03-12] MEDS ORDERED: NORMAL SALINE 1000 ML 1,000 ML IV ONE (08:23)
[2019-03-12] MEDS ORDERED: ONDANSETRON HCL INJ/PF 4 MG/2 ML SDV IV ONE (08:23)
[2019-03-12 08:36] LABS: APPEARANCE,URINE CLEAR; BILIRUBIN,URINE NEGATIVE (NEGATIVE); COLOR,URINE YELLOW; GLUCOSE, URINE NEGATIVE (NEGATIVE); KETONES,URINE NEGATIVE (NEGATIVE); LEUKOCYTE ESTERASE,URINE SMALL (NEGATIVE); NITRITE,URINE NEGATIVE (NEGATIVE); PROTEIN,URINE NEGATIVE (NEGATIVE); URINE SPECIFIC GRAVITY 1.009; UROBILINOGEN,URINE NEGATIVE mg/dL (<2.0)
--- NOTE | 2019-03-12 08:43 | EKG REPORT ---
SEVERITY:- ABNORMAL ECG - SINUS RHYTHM PROBABLE LEFT ATRIAL ABNORMALITY LEFT BUNDLE BRANCH BLOCK : Confirmed by: Michael Mcfarlane 12-Mar-2019 08:40:52
[2019-03-12 08:51] LABS: ALANINE AMINOTRANSFERASE 35 U/L (9-52); ALBUMIN 2.9 g/dL (3.5-5.0); ALKALINE PHOSPHATASE 262 U/L (38-126); ANION GAP 6 (5-19); ASPARTATE AMINO TRANSFERASE 53 U/L (14-36); BILIRUBIN,DIRECT 0.4 mg/dL (0.0-0.4); BLOOD UREA NITROGEN 15 mg/dL (7-20); CALCIUM 8.8 mg/dL (8.4-10.2); CARBON DIOXIDE 25 mmol/L (22-30); CHLORIDE 105 mmol/L (98-107); CREATINE KINASE 63 U/L (30-135); GLUCOSE 86 mg/dL (75-110); LIPASE 47.5 U/L (23-300); SODIUM 135.8 mmol/L (137-145); TOTAL PROTEIN 6.3 g/dL (6.3-8.2)
--- NOTE | 2019-03-12 08:59 | ER Document Report ---
Entered by FLORIDA GRACIA SCRIBE 03/12/19 0829 Acting as scribe for:HENRRY SIMMS MD ED General - General Chief Complaint: Abdominal Pain Stated Complaint: ABDOMINAL PAIN Time Seen by Provider: 03/12/19 08:14 Primary Care Provider: ALISSA MCKEON MD [Primary Care Provider] - Follow up tomorrow (Call Dr. Mckeon's office today to schedule an appointment tomorrow.) Mode of Arrival: Ambulatory Information source: Patient Notes: Patient is an 79 year old female with HTN, type 2 diabetes, nonalcoholic liver cirrhosis, esophageal varices presents to the emergency department complaining of nausea, vomiting and generalized weakness onset 2 weeks ago. Patient states her symptoms has been persistent over the 2 weeks. She also states she has been unable to hold food or liquids down. She reports only living with her whom's health is not very good. Patient does report that she has to use her walker to get around the house, wh ich she has been doing for a few weeks. The patient was recently admitted to this hospital from 02/16/19-02/20/19 for colitis and pneumonia, and she reports her symptoms starting within a few days of going home from the hospital. TRAVEL OUTSIDE OF THE [place] IN LAST 30 DAYS: No - Related Data Allergies/Adverse Reactions: codeine [Codeine] Allergy (Intermediate, Verified 11/27/18 09:21) VOMITING meperidine HCl [From Demerol] Allergy (Intermediate, Verified 11/27/18 09:21) n/v Iodinated Contrast- Oral and IV Dye [Iodinated Contrast Media - IV Dye] Allergy (Mild, Verified 11/27/18 09:21) Itching levofloxacin [From Levaquin] Allergy (Mild, Verified 11/27/18 09:21) itching fentanyl Adverse Reaction (Verified 11/27/18 09:21) "can't wake up" BEE STINGS Allergy (Uncoded 06/02/18 20:03) Anaphylaxis Past Medical History - General Information source: Patient - Social History Smoking Status: Never Smoker Cigarette use (# per day): No Chew tobacco use (# tins/day): No Smoking Education Provided: No Frequency of alcohol use: None Lives with: Spouse/Significant other Family History: Reviewed & Not Pertinent Patient has suicidal ideation: No Patient has homicidal ideation: No - Past Medical History Cardiac Medical History: Reports: Hx Hypertension, Hx Heart Murmur Pulmonary Medical History: Reports: Hx Pneumonia - hx of Endocrine Medical History: Reports: Hx Diabetes Mellitus Type 2 GI Medical History: Reports: Hx Cirrhosis, Hx Diverticulitis, Hx Gastroesophageal Reflux Disease Musculoskeletal Medical History: Reports Hx Arthritis - HANDS, BACK Psychiatric Medical History: Reports: Hx Depression Past Surgical History: Reports: Hx Abdominal Surgery - 6 banded varices, Hx Hysterectomy, Hx Orthopedic Surgery - Back surgery, Other - Surgery for GI bleeding secondary to esophageal varices secondary to cirrho - Immunizations Hx Diphtheria, Pertussis, Tetanus Vaccination: Yes Hx Pneumococcal Vaccination: 10/21/15 Review of Systems - Review of Systems Constitutional: See HPI, Weakness EENT: No symptoms reported Cardiovascular: No symptoms reported Respiratory: No symptoms reported Gastrointestinal: See HPI, Nausea, Vomiting Genitourinary: No symptoms reported Female Genitourinary: No symptoms reported Musculoskeletal: No symptoms reported Skin: No symptoms reported Hematologic/Lymphatic: No symptoms reported Neurological/Psychological: No symptoms reported -: Yes All other systems reviewed and negative Physical Exam - Vital signs Vitals: Resp BP Pulse Ox 20 138/60 H 100 03/12/19 07:42 03/12/19 07:42 03/12/19 07:42 - Notes Notes: GENERAL: Alert, appears weak, pale. No acute distress. HEAD: Normocephalic, atraumatic. EYES: Pupils equal, round, and reactive to light. Extraocular movements intact. ENT: Oral mucosa dry, tongue midline. NECK: Full range of motion. Supple. Trachea midline. LUNGS: Clear to auscultation bilaterally, no wheezes, rales, or rhonchi. No re spiratory distress. HEART: Regular rate and rhythm. No murmurs, gallops, or rubs. ABDOMEN: Soft, non-tender. Non-distended. Bowel sounds decreased. No guarding, rigidity, or rebound. EXTREMITIES: Moves all 4 extremities spontaneously. Chronic trace edema, radial and dorsalis pedis pulses 2/4 bilaterally. No cyanosis. Tender to palpate the left distal medial tibial area. Chronic skin changes of the BLE. NEUROLOGICAL: Alert and oriented x3. Normal speech. PSYCH: Normal affect, normal mood. SKIN: Warm, dry. Course - Re-evaluation Re-evalutation: 03/12/19 11:12 The patient's lab work is unchanged from her baseline. There is no suggestion of dehydration, her urine is quite dilute and her BUN is low. She does appear to be an adult failure to thrive patient at this time, based on looking at the recorded weights over the past year. 03/12/19 13:01 A stool Hemoccult was done due to her anemia and history of gastric varices and esophageal varices, but the stool Hemoccult was negative. - Vital Signs Vital signs: Temp Pulse Resp BP Pulse Ox 97.7 F 71 20 123/53 L 100 03/12/19 07:45 03/12/19 07:45 03/12/19 11:01 03/12/19 11:01 03/12/19 11:01 - Laboratory Result Diagrams: 03/12/19 08:38 03/12/19 08:20 Laboratory results interpreted by me: 03/12/19 03/12/19 03/12/19 08:04 08:20 08:38 RBC 3.02 L Hgb 9.1 L Hct 27.1 L RDW 31.2 H Monocytes % 13.9 H Eosinophils % 8.0 H Sodium 135.8 L Magnesium 1.4 L AST 53 H Alkaline Phosphatase 262 H Albumin 2.9 L Ur Leukocyte Esterase SMALL H - Diagnostic Test Radiology reviewed: Image reviewed, Reports reviewed - Acute abdominal series is read as no evidence for acute abdominal disease. - EKG Interpretation by Me EKG shows normal: Sinus rhythm, [place], Intervals, QRS Complexes, ST-T Waves Rate: Normal - 72 Rhythm: NSR [place]/QRS: LBBB P Waves: LAE When compared to previous EKG there are: No significant change Discharge - Discharge Clinical Impression: Weakness, Adult failure to thrive Nausea and vomiting Qualifiers: Vomiting type: unspecified Vomiting Intractability: non-intractable Qualified Code(s): R11.2 - Nausea with vomiting, unspecified Condition: Stable Disposition: HOME, SELF-CARE Additional Instructions: Weakness We did not find a definite cause for your weakness. This may require further medical tests. Weakness can be caused by infection, physical exhaustion, rapid weight loss, dehydration, or medicine side effects. Diseases of the muscles, heart, nerves, and blood vessels can make you weak. Sometimes the problem is simply depression or lack of exercise. You should get plenty of rest. Unless the doctor tells you otherwise, it's usually best to add short periods of regular mild exercise. Eat a nutritious diet with multiple small, low-sugar meals. If symptoms continue, additional medical evaluation will be necessary. Be sure to follow up as instructed. If you become very dizzy, nauseated, or feel like you're going to faint, lie down right away. Wait until the symptoms have passed before you get up again. Stand up slowly. Call the doctor or return if you develop chest pain, abdominal pain, severe headache, irregular heartbeat or very fast pulse, confusion, vision problems, fever, muscular pain, or any other new symptom. Your nausea and weakness is probably a residual problem related to your hospitalization at the first of the month. Be sure to take the Zofran or ondansetron that you have prescribed for your nauseousness. Call Dr. Mckeon's office today to schedule an appointment tomorrow to review the symptoms you have been having for the past 2 weeks. RETURN TO THE EMERGENCY ROOM IF ANY NEW OR WORSENING SYMPTOMS. Referrals: ALISSA MCKEON MD [Primary Care Provider] - Follow up tomorrow (Call Dr. Mckeon's office today to schedule an appointment tomorrow.) Scribe Attestation: 03/12/19 09:33 I personally performed the services described in the documentation, reviewed and edited the documentation which was dictated to the scribe in my presence, and it accurately records my words and actions. I personally performed the services described in the documentation, reviewed and edited the documentation which was dictated to the scribe in my presence, and it accurately records my words and actions.
[2019-03-12 09:03] LABS: ABSOLUTE EOSINOPHILS # (AUTO) 0.4 10^3/uL (0.0-0.6); ABSOLUTE LYMPHOCYTES (AUTO) 1.7 10^3/uL (0.5-4.7); ABSOLUTE MONOCYTES (AUTO) 0.7 10^3/uL (0.1-1.4); ABSOLUTE NEUT (AUTO) 2.2 10^3/uL (1.7-8.2); BASOPHILS % (AUTO) 0.9 % (0-2); HEMATOCRIT 27.1 % (36.0-47.0); HEMOGLOBIN 9.1 g/dL (12.0-15.5); MEAN CORPUSCULAR HEMOGLOBIN 29.9 pg (27.0-33.4); MEAN CORPUSCULAR HGB CONC 33.4 g/dL (32.0-36.0); MONOCYTES % (AUTO) 13.9 % (3-13); PLATELET COUNT 151 10^3/uL (150-450); RED BLOOD COUNT 3.02 10^6/uL (3.72-5.28); RED CELL DISTRIBUTION WIDTH 31.2 % (11.5-14.0); SEGMENTED NEUTROPHILS % (AUTO) 44.2 % (42-78); TOTAL CELLS COUNTED % (AUTO) 100 %; WHITE BLOOD COUNT 5.1 10^3/uL (4.0-10.5)
--- NOTE | 2019-03-12 09:03 | RADIOLOGY REPORT (SQ) ---
EXAM DESCRIPTION: ACUTE ABDOMEN SERIES COMPLETED DATE/TIME: 03/12/2019 8:49 am REASON FOR STUDY: Nausea vomiting x2 weeks COMPARISON: None. NUMBER OF VIEWS: Three views. TECHNIQUE: Portable Frontal chest, supine abdomen and upright/decubitus abdomen radiographic images acquired. LIMITATIONS: None. FINDINGS: CHEST: Lungs clear of infiltrates. FREE AIR: None. No abnormal gas collections. BOWEL GAS PATTERN: Nonobstructive pattern. No dilated loops or air fluid levels. Small quantity feca l material. CALCIFICATIONS: No suspicious calcifications. HARDWARE: None in the abdomen. SOFT TISSUES: No gross mass or suggestion of organomegaly. BONES: Status post kyphoplasty L1. Scoliotic angulation. OTHER: No other significant finding. IMPRESSION: NO RADIOGRAPHIC EVIDENCE FOR ACUTE ABDOMINAL DISEASE. TECHNICAL DOCUMENTATION: JOB ID: [id number] [employer]- All Rights Reserved Reading location - IP/workstation name: [email or web address]
[2019-03-12 09:19] LABS: MEAN CORPUSCULAR VOLUME 90 fl (80-97)
[2019-03-12 09:33] LABS: HYPOCHROMASIA SLIGHT; OVALOCYTES SLIGHT; POIKILOCYTOSIS SLIGHT; TARGET CELLS SLIGHT
[2019-03-12 09:34] LABS: ANISOCYTOSIS 3+; PLATELET COMMENT ADEQUATE
[2019-03-12 15:04] VITALS: BP 134/62
== END 2019-03-12 15:55 | disposition home or self-care (01) ==
LOC: ER 07:39
DX: R53.1 Weakness (principal); R62.7 Adult failure to thrive; R11.2 Nausea with vomiting, unspecified; R10.9 Unspecified abdominal pain; I10 Essential (primary) hypertension; E11.9 Type 2 diabetes mellitus without complications
CPT/HCPCS: 93005; 99285; 96361; 96374; 36415; 87040; 87086; 82962; 82550; 83690; 83735; 85025; 87088; 80053; 81001; 84484; 87186; 83605; 74022; 93010; J2405; J7030

== ENCOUNTER 2019-03-15 19:11 | Inpatient (IN) | payer MEDICARE, OTHER ==
[2019-03-15 20:43] LABS: ABSOLUTE BASOPHILS # (AUTO) 0.1 10^3/uL (0.0-0.2); ABSOLUTE EOSINOPHILS # (AUTO) 0.3 10^3/uL (0.0-0.6); ABSOLUTE LYMPHOCYTES (AUTO) 2.6 10^3/uL (0.5-4.7); ABSOLUTE MONOCYTES (AUTO) 0.7 10^3/uL (0.1-1.4); ABSOLUTE NEUT (AUTO) 2.9 10^3/uL (1.7-8.2); BASOPHILS % (AUTO) 0.9 % (0-2); EOSINOPHILS % (AUTO) 4.8 % (0-6); HEMATOCRIT 36.1 % (36.0-47.0); LYMPHOCYTES % (AUTO) 39.6 % (13-45); MEAN CORPUSCULAR HEMOGLOBIN 30.1 pg (27.0-33.4); MEAN CORPUSCULAR HGB CONC 33.3 g/dL (32.0-36.0); MEAN CORPUSCULAR VOLUME 90 fl (80-97); MONOCYTES % (AUTO) 10.5 % (3-13); PLATELET COUNT 173 10^3/uL (150-450); RED CELL DISTRIBUTION WIDTH 31.1 % (11.5-14.0); SEGMENTED NEUTROPHILS % (AUTO) 44.2 % (42-78); TOTAL CELLS COUNTED % (AUTO) 100 %; WHITE BLOOD COUNT 6.5 10^3/uL (4.0-10.5)
[2019-03-15 21:01] LABS: PLATELET COMMENT ADEQUATE
[2019-03-15 21:03] LABS: HYPOCHROMASIA SLIGHT
[2019-03-15 21:04] LABS: ANISOCYTOSIS 2+; BURR CELLS SLIGHT; OVALOCYTES 1+; POIKILOCYTOSIS SLIGHT; SCHISTOCYTES SLIGHT; TARGET CELLS 1+
[2019-03-15 21:12] LABS: ALANINE AMINOTRANSFERASE 43 U/L (9-52); ALKALINE PHOSPHATASE 287 U/L (38-126); ANION GAP 10 (5-19); ASPARTATE AMINO TRANSFERASE 69 U/L (14-36); BILIRUBIN,DIRECT 0.5 mg/dL (0.0-0.4); BLOOD UREA NITROGEN 17 mg/dL (7-20); CALCIUM 8.6 mg/dL (8.4-10.2); CARBON DIOXIDE 21 mmol/L (22-30); CHLORIDE 104 mmol/L (98-107); GLUCOSE 85 mg/dL (75-110); LIPASE 65.6 U/L (23-300); POTASSIUM 4.4 mmol/L (3.6-5.0); SODIUM 134.6 mmol/L (137-145); TOTAL PROTEIN 6.4 g/dL (6.3-8.2)
[2019-03-15] MEDS ORDERED: ACETAMINOPHEN 325 MG TABLET PO ONE (21:55)
--- NOTE | 2019-03-15 21:58 | ER Document Report ---
ED General - General Chief Complaint: Rectal Bleeding Stated Complaint: VOMITING Time Seen by Provider: 03/15/19 20:22 Cannot obtain history due to: Altered mental status Notes: Patient is an 79-year-old female has a history of nonalcoholic liver cirrhosis with esophageal varices and history of GI bleeds, debility at baseline, presents by EMS without accompanying family due to concerns of rectal bleeding. The patient's main complaint is that she feels very weak and has no energy. Patient was seen in the emergency department 3 days ago with vomiting blood at that time. Patient tells me that she has not had any additional episodes of vomiting although her daughter apparently told the nurse on the phone that she has had additional episodes of vomiting with blood. The patient herself is an poor historian, unable to provide any meaningful history at the time of my assessment. There seems to be significant discordance between the history as provided by the patient and her daughter on the phone although notably her daughter lives 12 hours away and has not seen the patient today. Apparently the patient is at home with her who is also physically quite unwell. History is subsequently limited secondary to the lack of available historians. Review of charts does note that the patient has had multiple visits and hospitalizations secondary to debility and generalized weakness. TRAVEL OUTSIDE OF THE [place] IN LAST 30 DAYS: No - Related Data Allergies/Adverse Reactions: codeine [Codeine] Allergy (Intermediate, Verified 11/27/18 09:21) VOMITING meperidine HCl [From Demerol] Allergy (Intermediate, Verified 11/27/18 09:21) n/v Iodinated Contrast- Oral and IV Dye [Iodinated Contrast Media - IV Dye] Allergy (Mild, Verified 11/27/18 09:21) Itching levofloxacin [From Levaquin] Allergy (Mild, Verified 11/27/18 09:21) itching fentanyl Adverse Reaction (Verified 11/27/18 09:21) "can't wake up" BEE STINGS Allergy (Uncoded 06/02/18 20:03) Anaphylaxis Past Medical History - General Information source: Patient, Relative Cannot obtain history due to: Altered mental status - Social History Smoking Status: Never Smoker Frequency of alcohol use: None Drug Abuse: None Lives with: Spouse/Significant other Family History: Reviewed & Not Pertinent Patient has suicidal ideation: No Patient has homicidal ideation: No - Past Medical History Cardiac Medical History: Reports: Hx Hypertension, Hx Heart Murmur Denies: Hx Coronary Artery Disease, Hx Heart Attack Pulmonary Medical History: Reports: Hx Pneumonia - hx of Denies: Hx Asthma, Hx Bronchitis, Hx COPD Neurological Medical History: Denies: Hx Cerebrovascular Accident, Hx Seizures Endocrine Medical History: Reports: Hx Diabetes Mellitus Type 2 Renal/ Medical History: Denies: Hx Peritoneal Dialysis GI Medical History: Reports: Hx Cirrhosis, Hx Diverticulitis, Hx Gastroesophageal Reflux Disease. Denies: Hx Hepatitis, Hx Hiatal Hernia, Hx Ulcer Musculoskeletal Medical History: Reports Hx Arthritis - HANDS, BACK Psychiatric Medical History: Reports: Hx Depression Infectious Medical History: Denies: Hx Hepatitis Past Surgical History: Reports: Hx Abdominal Surgery - 6 banded varices, Hx Hysterectomy, Hx Orthopedic Surgery - Back surgery, Other - Surgery for GI bleeding secondary to esophageal varices secondary to cirrho - Immunizations Hx Diphtheria, Pertussis, Tetanus Vaccination: Yes Hx Pneumococcal Vaccination: 10/21/15 Review of Systems - Review of Systems Notes: Constitutional: Negative for fever. Positive for generalized weakness HENT: Negative for sore throat. Eyes: Negative for visual changes. Cardiovascular: Negative for chest pain. Respiratory: Negative for shortness of breath. Gastrointestinal: Positive for vomiting, hematochezia Genitourinary: Negative for dysuria. Musculoskeletal: Negative for back pain. Skin: Negative for rash. Neurological: Negative for headaches, weakness or numbness. 10 point ROS negative except as marked above and in HPI. Physical Exam - Vital signs Vitals: Temp Pulse Resp BP Pulse Ox 98.5 F 67 14 140/59 H 100 03/15/19 19:15 03/15/19 19:15 03/15/19 19:15 03/15/19 19:15 03/15/19 19:15 Interpretation: Normal Notes: PHYSICAL EXAMINATION: GENERAL: Frail, elderly female, somewhat lethargic, in no distress HEAD: Atraumatic, normocephalic. EYES: Pupils equal round and reactive to light, extraocular movements intact, sclera anicteric, conjunctiva are normal. ENT: nares patent, oropharynx clear without exudates. Moderately dry mucous membranes. NECK: Normal range of motion, supple without lymphadenopathy LUNGS: Breath sounds clear to auscultation bilaterally and equal. No wheezes rales or rhonchi. HEART: Regular rate and rhythm without murmurs ABDOMEN: Soft, nontender, normoactive bowel sounds. No guarding, no rebound. No masses appreciated. Rectal: No stool, no blood EXTREMITIES: Normal range of motion, no pitting or edema. No cyanosis. NEUROLOGICAL: No focal neurological deficits. Moves all extremities spontaneously and on command. PSYCH: Somewhat somnolent but oriented to person place, month. Unable to provide appropriate history. SKIN: Warm, Dry, normal turgor, no rashes or lesions noted. Course - Re-evaluation Re-evalutation: 03/15/19 21:57 Patient presents with generalized weakness, complained that she feels very fatigued and tired. Patient apparently had some dark stool today, apparently had an episode of vomiting earlier today that had some blood in it and was seen here on the for similar concerns. On rectal examination there is no stool in the rectal vault, guaiac negative. Notably her hemoglobin has risen since the and is now normal ranges. I do not clinically suspect a significant GI bleed as the etiology of the patient's complaint of weakness, urinalysis is pending. Chest x-ray likewise pending. Labs otherwise unremarkable including troponin. 03/15/19 23:55 Patient has not had any vomiting or diarrheal bowel movements here in the emergency department. Her vitals remained within acceptable limits. Blood pressure 123 and 48, heart rate 75, saturating 98% on room air. Her labs are completely unremarkable. No evidence of significant GI bleed. Chest x-ray and urinalysis likewise unremarkable. However patient is unable to even stand when we attempt to get her up to walk and appears extremely weak without any clear etiology. I believe most of this is general deconditioning as patient has been in and out of the hospital repeatedly over the last several months for the same. I discussed with Dr. Subramanian covering for Dr. Arrieta who is agreed to observe the patient given that she cannot stand and walk. - Vital Signs Vital signs: Temp Pulse Resp BP Pulse Ox 98.3 F 67 20 134/53 H 98 03/16/19 02:00 03/15/19 19:15 03/16/19 03:01 03/16/19 03:01 03/16/19 03:01 - Laboratory Result Diagrams: 03/15/19 20:25 03/15/19 20:25 Laboratory results interpreted by me: 03/15/19 03/15/19 20:25 20:25 RDW 31.1 H Sodium 134.6 L Carbon Dioxide 21 L Direct Bilirubin 0.5 H AST 69 H Alkaline Phosphatase 287 H Albumin 3.0 L - Diagnostic Test Radiology reviewed: Image reviewed, Reports reviewed Radiology results interpreted by me: 03/15/19 23:57 Chest x-ray: No acute infiltrate - EKG Interpretation by Me Additional EKG results interpreted by me: 03/15/19 23:57 Sinus rhythm, rate 68, left bundle branch block, unchanged from previous EKG. Discharge - Discharge Clinical Impression: Non-alcoholic cirrhosis, Adult failure to thrive, General weakness Nausea and vomiting Qualifiers: Vomiting type: unspecified Vomiting Intractability: non-intractable Qualified Code(s): R11.2 - Nausea with vomiting, unspecified Condition: Fair Disposition: ADMITTED OBSERVATION Admitting Provider: [facility] Unit Admitted: Medical Floor
[2019-03-15 22:04] LABS: APPEARANCE,URINE CLEAR; BILIRUBIN,URINE NEGATIVE (NEGATIVE); COLOR,URINE YELLOW; GLUCOSE, URINE NEGATIVE (NEGATIVE); KETONES,URINE NEGATIVE (NEGATIVE); LEUKOCYTE ESTERASE,URINE NEGATIVE (NEGATIVE); NITRITE,URINE NEGATIVE (NEGATIVE); PROTEIN,URINE NEGATIVE (NEGATIVE); URINE SPECIFIC GRAVITY 1.006; UROBILINOGEN,URINE NEGATIVE mg/dL (<2.0)
--- NOTE | 2019-03-15 22:48 | RADIOLOGY REPORT (SQ) ---
EXAM DESCRIPTION: XR CHEST 1 VIEW COMPLETED DATE/TME: 03/15/2019 22:03 CLINICAL HISTORY: 79 years Female, weakness, sob COMPARISON:Feb 16 2019 NUMBER OF VIEWS/TECHNIQUE: 1/AP FINDINGS: Adequate lung volume, small bibasilar atelectasis-effusion, normal cardiac silhouette, and intact bony thorax. IMPRESSION: Small bibasilar atelectasis-effusion. No interval worsening.
--- NOTE | 2019-03-16 00:04 | EKG REPORT ---
SEVERITY:- ABNORMAL ECG - SINUS RHYTHM PROBABLE LEFT ATRIAL ABNORMALITY LEFT BUNDLE BRANCH BLOCK INFERIOR Q WAVES, POSSIBLY DUE TO LBBB : Confirmed by: Michael Mcfarlane 16-Mar-2019 00:03:12
[2019-03-16] MEDS ORDERED: CEFTRIAXONE 1 GM/D5W RTU 1 GM/50 ML RTUPB IV SCH (12:00)
--- NOTE | 2019-03-16 12:01 | PDOC H&P ---
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 She was in the emergency room 3 days earlier for evaluation of vomiting blood, she was evaluated and discharged home. She has a history of liver cirrhosis with esophageal varices she is scheduled to have EGD in 3 days time for possible banding of the varices, Dr. Rubin is the GI physician, Dr. espinoza is the primary care physician.. When I saw this patient she looks very frail, the body mass index is 19, she lives with the spouse who also is very elderly I reviewed the records from prior admission, she was admitted to this hospital on 02/16/2019 by for evaluation of abdominal pain. 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 Past Medical History Cardiac Medical History: Reports: Hypertension, Heart Murmur Pulmonary Medical History: Reports: Pneumonia - hx of Endocrine Medical History: Reports: Diabetes Mellitus Type 2 GI Medical History: Reports: Cirrhosis, Diverticulitis, Gastroesophageal Reflux Disease Musculoskeltal Medical History: Reports: Arthritis - HANDS, BACK Psychiatric Medical History: Reports: Depression Hematology: Reports: Anemia Denies: Sickle Cell Disease Past Surgical History Past Surgical History: Reports: Hysterectomy, Orthopedic Surgery - Back surgery, Other - Surgery for GI bleeding secondary to esophageal varices secondary to cirrho Social History Lives with: Spouse/Significant other Smoking Status: Never Smoker Frequency of Alcohol Use: None Hx Recreational Drug Use: No Drugs: None Hx Prescription Drug Abuse: No Family History Family History: Reviewed & Not Pertinent Parental Family History Reviewed: Yes Children Family History Reviewed: Yes Sibling(s) Family History Reviewed.: Yes Medication/Allergy Home Medications: Amlodipine Besylate [Norvasc 5 mg Tablet] 5 mg PO DAILY 07/20/18 Duloxetine HCl [Cymbalta] 60 mg PO Q12 07/20/18 Nadolol [Corgard 40 mg Tablet] 40 mg PO DAILY 07/20/18 Ondansetron HCl [Zofran 4 mg Tablet] 4 mg PO Q4HP PRN 07/20/18 Dexlansoprazole [Dexilant 30 mg Capsule] 30 mg PO DAILY 02/16/19 Spironolactone [Aldactone 25 mg Tablet] 25 mg PO DAILY 02/16/19 Amox Tr/Potassium Clavulanate [Augmentin "500" Tablet] 1 tab PO Q8 #20 tablet 02/20/19 Allergies/Adverse Reactions: codeine [Codeine] Allergy (Intermediate, Verified 11/27/18 09:21) VOMITING meperidine HCl [From Demerol] Allergy (Intermediate, Verified 11/27/18 09:21) n/v Iodinated Contrast- Oral and IV Dye [Iodinated Contrast Media - IV Dye] Allergy (Mild, Verified 11/27/18 09:21) Itching levofloxacin [From Levaquin] Allergy (Mild, Verified 11/27/18 09:21) itching fentanyl Adverse Reaction (Verified 11/27/18 09:21) "can't wake up" BEE STINGS Allergy (Uncoded 06/02/18 20:03) Anaphylaxis Review of Systems Constitutional: PRESENT: fatigue Eyes: ABSENT: visual disturbances Ears: ABSENT: hearing changes Cardiovascular: ABSENT: chest pain, dyspnea on exertion, edema, orthropnea, palpitations Respiratory: ABSENT: cough, hemoptysis Gastrointestinal: PRESENT: melena Genitourinary: ABSENT: dysuria, hematuria Musculoskeletal: ABSENT: joint swelling Integumentary: ABSENT: rash, wounds Neurological: ABSENT: abnormal gait, abnormal speech, confusion, dizziness, focal weakness, syncope Psychiatric: ABSENT: anxiety, depression, homidical ideation, suicidal ideation Endocrine: ABSENT: cold intolerance, heat intolerance, menstrual abnormalities, polydipsia, polyuria Hematologic/Lymphatic: ABSENT: easy bleeding, easy bruising, lymphadenopathy Physical Exam Vital Signs: Temp Pulse Resp BP Pulse Ox 97.8 F 64 16 131/57 H 99 03/16/19 08:37 03/16/19 08:37 03/16/19 08:37 03/16/19 08:37 03/16/19 08:37 Intake & Output 03/15/19 03/16/19 03/17/19 06:59 06:59 06:59 Weight 49.5 kg General appearance: PRESENT: thin Eye exam: PRESENT: PERRLA Respiratory exam: PRESENT: clear to auscultation brigida Cardiovascular exam: PRESENT: +S1, +S2 GI/Abdominal exam: PRESENT: soft Extremities exam: PRESENT: pedal edema Neurological exam: PRESENT: alert Results Laboratory Results: 03/15/19 20:25 03/15/19 20:25 03/15/19 03/15/19 03/15/19 20:25 20:25 20:25 WBC 6.5 RBC 4.00 Hgb 12.0 Hct 36.1 MCV 90 MCH 30.1 MCHC 33.3 RDW 31.1 H Plt Count 173 Seg Neutrophils % 44.2 Lymphocytes % 39.6 Monocytes % 10.5 Eosinophils % 4.8 Basophils % 0.9 Absolute Neutrophils 2.9 Absolute Lymphocytes 2.6 Absolute Monocytes 0.7 Absolute Eosinophils 0.3 Absolute Basophils 0.1 Sodium 134.6 L Potassium 4.4 Chloride 104 Carbon Dioxide 21 L Anion Gap 10 BUN 17 Creatinine 0.67 Est GFR ( Amer) > 60 Est GFR (Non-Af Amer) > 60 Glucose 85 Calcium 8.6 Total Bilirubin 1.0 AST 69 H ALT 43 Alkaline Phosphatase 287 H Total Protein 6.4 Albumin 3.0 L Lipase 65.6 Urine Color Urine Appearance Urine pH Ur Specific [place] Urine Protein Urine Glucose (UA) Urine Ketones Urine Blood Urine Nitrite Ur Leukocyte Esterase Urine WBC (Auto) Blood Type O POSITIVE Antibody Screen NEGATIVE 03/15/19 21:51 WBC RBC Hgb Hct MCV MCH MCHC RDW Plt Count Seg Neutrophils % Lymphocytes % Monocytes % Eosinophils % Basophils % Absolute Neutrophils Absolute Lymphocytes Absolute Monocytes Absolute Eosinophils Absolute Basophils Sodium Potassium Chloride Carbon Dioxide Anion Gap BUN Creatinine Est GFR ( Amer) Est GFR (Non-Af Amer) Glucose Calcium Total Bilirubin AST ALT Alkaline Phosphatase Total Protein Albumin Lipase Urine Color YELLOW Urine Appearance CLEAR Urine pH 8.0 Ur Specific [place] 1.006 Urine Protein NEGATIVE Urine Glucose (UA) NEGATIVE Urine Ketones NEGATIVE Urine Blood NEGATIVE Urine Nitrite NEGATIVE Ur Leukocyte Esterase NEGATIVE Urine WBC (Auto) 1 Blood Type Antibody Screen 03/15/19 20:25 Troponin I < 0.012 Impressions: Chest X-Ray 03/15/19 22:03 IMPRESSION: Small bibasilar atelectasis-effusion. No interval worsening. Assessment & Plan - Diagnosis (1) Bleeding esophageal varices Qualifiers: Esophageal varices type: idiopathic Qualified Code(s): I85.01 - Esophageal varices with bleeding Is this a current diagnosis for this admission?: Yes Plan: She has nonalcoholic liver cirrhosis, probably [place] with esophageal varices, presently bleeding, start patient on intravenous octreotide infusion with IV antibiotic patient will require a EGD I will consult GI for upper endoscopy (2) Non-alcoholic cirrhosis Is this a current diagnosis for this admission?: Yes
[2019-03-16] MEDS ORDERED: (PENDING PHARMACY ID) (Dexlansoprazole [Dexilant 30 Mg Capsule] 30 MG) PO SCH (12:15)
[2019-03-16 12:29] LABS: INTERNATIONAL RATION (INR) 1.12
[2019-03-16 12:30] LABS: PARTIAL THROMBOPLASTIN TIME 34.2 SEC (23.5-35.8)
[2019-03-16 13:12] LABS: FREE T4 (FREE THYROXINE) 0.95 ng/dL (0.78-2.19)
[2019-03-16 13:26] LABS: THYROID STIMULATING HORMONE 10.8 uIU/mL (0.47-4.68)
[2019-03-16 14:04] LABS: URINE AMPHETAMINES SCREEN NEGATIVE; URINE BARBITURATES SCREEN NEGATIVE; URINE BENZODIAZEPINES SCREEN NEGATIVE; URINE COCAINE SCREEN NEGATIVE; URINE MARIJUANA (THC) SCREEN NEGATIVE; URINE METHADONE SCREEN NEGATIVE; URINE PHENCYCLIDINE SCREEN NEGATIVE
[2019-03-16] MEDS: NADOLOL 40 MG TABLET PO SCH (14:48)
[2019-03-16] MEDS: SPIRONOLACTONE 25 MG TABLET PO SCH (14:48)
[2019-03-16] MEDS: NORMAL SALINE 500 ML with OCTREOTIDE ACETATE 500 MCG IV PRN ×2 (14:48)
[2019-03-16] MEDS: CEFTRIAXONE SODIUM 1,000 MG in DEXTROSE 5%-WATER 50 ML IV SCH (14:51)
[2019-03-16] MEDS ORDERED: DEXTROSE 40% GEL 15 GM TUBE X 2 PO PRN (15:30)
[2019-03-16] MEDS ORDERED: GLUCAGON,HUMAN RECOMB 1 MG INJ IM PRN (15:30)
[2019-03-16] MEDS ORDERED: DEXTROSE 50%-WATER SYRINGE 12.5 GM/25 ML DOSE IV PRN (15:30)
[2019-03-16] MEDS ORDERED: DEXTROSE 40% GEL 15 GM TUBE PO PRN (15:30)
[2019-03-16] MEDS ORDERED: DEXTROSE 50%-WATER SYRINGE 25 GM/50 ML DOSE IV PRN (15:30)
[2019-03-16] MEDS ORDERED: LACTULOSE SYRUP 20 GM/30 ML UDCUP PO ONE (16:00)
[2019-03-16] MEDS: INSULIN LISPRO 100 UNIT/ML 3 ML VIAL SUBCUT SCH ×2 (16:56→21:25)
[2019-03-16] MEDS: AMLODIPINE BESYLATE 5 MG TABLET PO SCH (16:59)
[2019-03-16] MEDS: LEVOTHYROXINE SODIUM 0.05 MG TABLET PO SCH (16:59)
[2019-03-16] MEDS: DULOXETINE HCL 30 MG CAPSULE.DR PO SCH (21:17)
[2019-03-17 05:11] LABS: ABSOLUTE EOSINOPHILS # (AUTO) 0.4 10^3/uL (0.0-0.6); ABSOLUTE LYMPHOCYTES (AUTO) 1.8 10^3/uL (0.5-4.7); ABSOLUTE MONOCYTES (AUTO) 0.7 10^3/uL (0.1-1.4); ABSOLUTE NEUT (AUTO) 3.8 10^3/uL (1.7-8.2); BASOPHILS % (AUTO) 0.7 % (0-2); EOSINOPHILS % (AUTO) 5.7 % (0-6); HEMATOCRIT 36.8 % (36.0-47.0); HEMOGLOBIN 12.5 g/dL (12.0-15.5); LYMPHOCYTES % (AUTO) 27.2 % (13-45); MEAN CORPUSCULAR HEMOGLOBIN 30.6 pg (27.0-33.4); MEAN CORPUSCULAR VOLUME 90 fl (80-97); MONOCYTES % (AUTO) 10.7 % (3-13); PLATELET COUNT 167 10^3/uL (150-450); RED BLOOD COUNT 4.09 10^6/uL (3.72-5.28); RED CELL DISTRIBUTION WIDTH 30.7 % (11.5-14.0); SEGMENTED NEUTROPHILS % (AUTO) 55.7 % (42-78); TOTAL CELLS COUNTED % (AUTO) 100 %; WHITE BLOOD COUNT 6.8 10^3/uL (4.0-10.5)
[2019-03-17] MEDS: LEVOTHYROXINE SODIUM 0.05 MG TABLET PO SCH (05:30)
[2019-03-17] MEDS: PANTOPRAZOLE SODIUM 20 MG TABLET.DR PO SCH (05:30)
[2019-03-17 05:53] LABS: ALANINE AMINOTRANSFERASE 42 U/L (9-52); ALKALINE PHOSPHATASE 250 U/L (38-126); ANION GAP 9 (5-19); ASPARTATE AMINO TRANSFERASE 60 U/L (14-36); BILIRUBIN,DIRECT 0.5 mg/dL (0.0-0.4); BLOOD UREA NITROGEN 15 mg/dL (7-20); CALCIUM 8.8 mg/dL (8.4-10.2); CARBON DIOXIDE 21 mmol/L (22-30); CHLORIDE 107 mmol/L (98-107); GLUCOSE 90 mg/dL (75-110); POTASSIUM 4.5 mmol/L (3.6-5.0); SODIUM 137.2 mmol/L (137-145); TOTAL PROTEIN 6.4 g/dL (6.3-8.2); TRIGLYCERIDES 69 mg/dL (<150)
[2019-03-17 06:03] LABS: ANISOCYTOSIS 4+; BURR CELLS SLIGHT; HELMET CELLS SLIGHT; HYPOCHROMASIA SLIGHT; OVALOCYTES SLIGHT; PLATELET COMMENT ADEQUATE; SCHISTOCYTES SLIGHT; TARGET CELLS SLIGHT
[2019-03-17 06:04] LABS: DIRECT LDL 128 mg/dL (<100)
--- NOTE | 2019-03-17 08:16 | PDOC PROGRESS REPORT ---
Subjective Progress Note for:: 03/17/19 Subjective:: Patient denied any chest pain or difficulty with breathing. No nausea, vomiting or abdominal pain. No recurrence of hematemesis, hematochexia, or tarry stool. No fever or chills. Reason For Visit: LIVER CIRRHOSIS WITH VARICEAL BLEED Physical Exam Vital Signs: Temp Pulse Resp BP Pulse Ox 98.7 F 77 14 132/60 H 100 03/17/19 04:53 03/17/19 04:53 03/17/19 04:53 03/17/19 04:53 03/17/19 04:53 Intake & Output 03/16/19 03/17/19 03/18/19 06:59 06:59 06:59 Intake Total 812 Balance 812 Weight 49.5 kg 49.1 kg General appearance: PRESENT: no acute distress Head exam: PRESENT: atraumatic, normocephalic Eye exam: PRESENT: conjunctiva pink. ABSENT: scleral icterus Ear exam: PRESENT: normal external ear exam Mouth exam: PRESENT: moist Respiratory exam: PRESENT: clear to auscultation brigida Cardiovascular exam: PRESENT: RRR. ABSENT: diastolic murmur, rubs, systolic murmur Vascular exam: ABSENT: pallor GI/Abdominal exam: PRESENT: normal bowel sounds, soft. ABSENT: distended, guarding, mass, organolmegaly, rebound, tenderness Extremities exam: ABSENT: pedal edema Musculoskeletal exam: PRESENT: normal inspection Neurological exam: PRESENT: alert, awake, oriented to person, oriented to place, oriented to time, oriented to situation, CN II-XII grossly intact. ABSENT: motor sensory deficit Psychiatric exam: PRESENT: appropriate affect, normal mood. ABSENT: homicidal ideation, suicidal ideation Skin exam: PRESENT: dry, warm Results Laboratory Results: 03/17/19 04:27 03/17/19 04:27 03/16/19 03/16/19 03/16/19 12:11 12:11 12:11 WBC RBC Hgb Hct MCV MCH MCHC RDW Plt Count Seg Neutrophils % Lymphocytes % Monocytes % Eosinophils % Basophils % Absolute Neutrophils Absolute Lymphocytes Absolute Monocytes Absolute Eosinophils Absolute Basophils Sodium Potassium Chloride Carbon Dioxide Anion Gap BUN Creatinine Est GFR ( Amer) Est GFR (Non-Af Amer) Glucose Calcium Magnesium 1.7 Total Bilirubin AST ALT Alkaline Phosphatase Ammonia 63.5 H Total Protein Albumin Triglycerides Cholesterol LDL Cholesterol Direct VLDL Cholesterol HDL Cholesterol Amylase 35 Lipase 76.0 TSH 10.80 H Free T4 0.95 03/17/19 03/17/19 04:27 04:27 WBC 6.8 RBC 4.09 Hgb 12.5 Hct 36.8 MCV 90 MCH 30.6 MCHC 34.0 RDW 30.7 H Plt Count 167 Seg Neutrophils % 55.7 Lymphocytes % 27.2 Monocytes % 10.7 Eosinophils % 5.7 Basophils % 0.7 Absolute Neutrophils 3.8 Absolute Lymphocytes 1.8 Absolute Monocytes 0.7 Absolute Eosinophils 0.4 Absolute Basophils 0.0 Sodium 137.2 Potassium 4.5 Chloride 107 Carbon Dioxide 21 L Anion Gap 9 BUN 15 Creatinine 0.69 Est GFR ( Amer) > 60 Est GFR (Non-Af Amer) > 60 Glucose 90 Calcium 8.8 Magnesium Total Bilirubin 1.0 AST 60 H ALT 42 Alkaline Phosphatase 250 H Ammonia Total Protein 6.4 Albumin 3.0 L Triglycerides 69 Cholesterol 207.20 H LDL Cholesterol Direct 128 H VLDL Cholesterol 14.0 HDL Cholesterol 44 Amylase Lipase TSH Free T4 03/15/19 20:25 Troponin I < 0.012 Impressions: Chest X-Ray 03/15/19 22:03 IMPRESSION: Small bibasilar atelectasis-effusion. No interval worsening. Assessment & Plan - Diagnosis (1) Bleeding esophageal varices Qualifiers: Esophageal varices type: idiopathic Qualified Code(s): I85.01 - Esophageal varices with bleeding Is this a current diagnosis for this admission?: Yes Plan: Follow up on GI consultation with Dr. Rubin for possible EGD with banding as necessary. Continue current medical conservative management. (2) Non-alcoholic cirrhosis Is this a current diagnosis for this admission?: Yes Plan: Continue current medication management. (3) Diabetes mellitus type 2 in nonobese Is this a current diagnosis for this admission?: Yes Plan: Continue current medication management. Add Glucerna 1 can po tid to meal time tray to improve calorie intake. (4) Essential hypertension Is this a current diagnosis for this admission?: Yes Plan: Continue current medication management. (5) GERD (gastroesophageal reflux disease) Qualifiers: Esophagitis presence: esophagitis presence not specified Qualified Code(s): K21.9 - Gastro-esophageal reflux disease without esophagitis Is this a current diagnosis for this admission?: Yes Plan: Continue current medication management. (6) Chronic pain syndrome Is this a current diagnosis for this admission?: Yes Plan: Continue current medication management. (7) Disc disease, degenerative, lumbar or lumbosacral Is this a current diagnosis for this admission?: Yes Plan: Continue current medication management. (8) Osteoarthritis involving multiple joints on both sides of body Is this a current diagnosis for this admission?: Yes Plan: Continue current medication management. (9) Abnormal thyroid function test Is this a current diagnosis for this admission?: Yes Plan: Obtain complete thyroid function panel for assessment of possible hypothyroidism. - Time Time Spent with patient: 25-34 minutes Medications reviewed and adjusted accordingly: Yes Anticipated discharge: Home with Homehealth, SNF Within: Other - Inpatient Certification Based on my medical assessment, after consideration of the patient's comorbidities, presenting symptoms, or acuity I expect that the services needed warrant INPATIENT care.: Yes I certify that my determination is in accordance with my understanding of [facility] 's requirements for reasonable and necessary INPATIENT services [42 CFR 412.3e].: Yes Medical Necessity: Significant Comorbidiites Make Outpatient Treatment Too Risky, Need Close Monitoring Due to Risk of Patient Decompensation, Need For IV Fluids, Need For Continuous Telemetry Monitoring, Need for IV Antibiotics, Risk of Complication if Not Cared For in Hospital, Risk of Diagnosis Which Will Require Inpatient Eval/Care/Monitoring Post Hospital Care: D/C Detention Deputy Documentation, D/C or Transfer Summary - Plan Summary Plan Summary: Continue current medication management, f/up on GI consultation request. Add Glucerna supplementation to tray. Obtain complete thyroid function panel. Overall prognosis remain guarded due to her morbidities and advance age.
[2019-03-17] MEDS: INSULIN LISPRO 100 UNIT/ML 3 ML VIAL SUBCUT SCH ×4 (08:28→21:57)
--- NOTE | 2019-03-17 08:37 | PDOC CONSULTATION ---
Consultation Consult Date: 03/17/19 Provider Consulted: BLANQUITA LOWERY Consult reason:: Failure to thrive History of Present Illness Admission Date/PCP: 03/16/19 11:28 ALISSA MCKEON History of Present Illness: GIOVANNY RODRÍGUEZ is a 79 year old female I am asked to see this patient, who was evaluated in my office a few days ago patient admitted for possible GI bleeding but based on objective data, her Hgb was normal on admission and on repeat evaluation following hydration is still normal she has cryptogenic cirrhosis she was previously a patient of Dr Warren patient has had increasing difficulty with ongoing weakness and perhaps mental status decline she has had multiple admission for GI bleeding both here and at various other hospitals in the area for GI bleeding patient has had multiple EGD's done patient reported that she could have had a GI bleed but again on her admission , her stools are negative for blood and Hgb is stable from the historical [place] , her daughter who lives about 10 hours away recently requested that I fill out FMLA forms for her it was made clear at that time, that the patient had other medical issues and that multiple frequent EGD's is more likely to harm the patient nevertheless ,the daughter insisted that she be scheduled for an EGD but now has been admitted, however again , my concern is that she will not be able to tolerate sedaton due to her current medical condition and performance status both the ER physician and admitting physicians who have much less contact with the patient has objectively noted some of the same concerns that I have in that there is significant incongruence of the patient's complaints and the daughter's impression of what is going on. Past Medical History Cardiac Medical History: Reports: Hypertension, Heart Murmur Denies: Coronary Artery Disease, Myocardial Infarction Pulmonary Medical History: Reports: Pneumonia - hx of Denies: Asthma, Bronchitis, Chronic Obstructive Pulmonary Disease (COPD) Neurological Medical History: Denies: Seizures Endocrine Medical History: Reports: Diabetes Mellitus Type 2 GI Medical History: Reports: Cirrhosis, Diverticulitis, Gastroesophageal Reflux Disease Denies: Hepatitis, Hiatal Hernia Musculoskeltal Medical History: Reports: Arthritis - HANDS, BACK Psychiatric Medical History: Reports: Depression Hematology: Reports: Anemia Denies: Sickle Cell Disease Past Surgical History Past Surgical History: Reports: Hysterectomy, Orthopedic Surgery - Back surgery, Other - Surgery for GI bleeding secondary to esophageal varices secondary to cirrho Denies: Amputation Social History Lives with: Spouse/Significant other Smoking Status: Never Smoker Frequency of Alcohol Use: None Hx Recreational Drug Use: No Drugs: None Hx Prescription Drug Abuse: No - Advance Directive Resuscitation Status: Do Not Resuscitate Family History Family History: Reviewed & Not Pertinent Parental Family History Reviewed: Yes Children Family History Reviewed: Unknown Sibling(s) Family History Reviewed.: Unknown Medication/Allergy Home Medications: Amlodipine Besylate [Norvasc 5 mg Tablet] 5 mg PO DAILY 07/20/18 Duloxetine HCl [Cymbalta] 60 mg PO Q12 07/20/18 Nadolol [Corgard 40 mg Tablet] 40 mg PO DAILY 07/20/18 Dexlansoprazole [Dexilant 30 mg Capsule] 30 mg PO DAILY 02/16/19 Spironolactone [Aldactone 25 mg Tablet] 25 mg PO DAILY 02/16/19 Hydrochlorothiazide [Hydrodiuril 12.5 mg Tablet] 12.5 mg PO QAM 03/16/19 Allergies/Adverse Reactions: codeine [Codeine] Allergy (Intermediate, Verified 11/27/18 09:21) VOMITING meperidine HCl [From Demerol] Allergy (Intermediate, Verified 11/27/18 09:21) n/v Iodinated Contrast- Oral and IV Dye [Iodinated Contrast Media - IV Dye] Allergy (Mild, Verified 11/27/18 09:21) Itching levofloxacin [From Levaquin] Allergy (Mild, Verified 11/27/18 09:21) itching fentanyl Adverse Reaction (Verified 11/27/18 09:21) "can't wake up" BEE STINGS Allergy (Uncoded 06/02/18 20:03) Anaphylaxis Review of Systems Constitutional: PRESENT: weakness. ABSENT: fever(s), headache(s), night sweats Eyes: ABSENT: visual disturbances Ears: PRESENT: hearing changes Nose, Mouth, and Throat: ABSENT: mouth pain, sore throat Cardiovascular: ABSENT: edema, orthropnea, palpitations Respiratory: ABSENT: dyspnea, hemoptysis Gastrointestinal: ABSENT: diarrhea, dysphagia, heartburn, nausea Genitourinary: ABSENT: dysuria, hematuria Musculoskeletal: ABSENT: deformity, joint swelling Neurological: ABSENT: syncope, tingling, tremor(s), vertigo Endocrine: ABSENT: polydipsia, polyphagia, polyuria Hematologic/Lymphatic: PRESENT: easy bruising Physical Exam Vital Signs: Temp Pulse Resp BP Pulse Ox 98.7 F 75 14 132/60 H 100 03/17/19 04:53 03/17/19 07:00 03/17/19 04:53 03/17/19 04:53 03/17/19 04:53 Intake & Output 03/16/19 03/17/19 03/18/19 06:59 06:59 06:59 Intake Total 812 Balance 812 Weight 49.5 kg 49.1 kg General appearance: PRESENT: hard of hearing, thin Head exam: PRESENT: atraumatic, normocephalic Eye exam: PRESENT: EOMI, PERRLA. ABSENT: periorbital swelling, scleral icterus Mouth exam: PRESENT: moist, neck supple Throat exam: ABSENT: tonsillar exudate, tonsillogmegaly Respiratory exam: PRESENT: symmetrical, unlabored. ABSENT: tachypnea, wheezes Cardiovascular exam: PRESENT: RRR, +S1, +S2 GI/Abdominal exam: PRESENT: soft. ABSENT: rebound, rigid, tenderness Extremities exam: ABSENT: joint swelling Musculoskeletal exam: PRESENT: full ROM Neurological exam: PRESENT: awake, CN II-XII grossly intact Focused psych exam: ABSENT: restlessness Skin exam: PRESENT: normal color. ABSENT: mottled, urticaria, vesicles Results Laboratory Results: 03/17/19 04:27 03/17/19 04:27 03/16/19 03/16/19 03/16/19 12:11 12:11 12:11 WBC RBC Hgb Hct MCV MCH MCHC RDW Plt Count Seg Neutrophils % Lymphocytes % Monocytes % Eosinophils % Basophils % Absolute Neutrophils Absolute Lymphocytes Absolute Monocytes Absolute Eosinophils Absolute Basophils Sodium Potassium Chloride Carbon Dioxide Anion Gap BUN Creatinine Est GFR ( Amer) Est GFR (Non-Af Amer) Glucose Calcium Magnesium 1.7 Total Bilirubin AST ALT Alkaline Phosphatase Ammonia 63.5 H Total Protein Albumin Triglycerides Cholesterol LDL Cholesterol Direct VLDL Cholesterol HDL Cholesterol Amylase 35 Lipase 76.0 TSH 10.80 H Free T4 0.95 03/17/19 03/17/19 04:27 04:27 WBC 6.8 RBC 4.09 Hgb 12.5 Hct 36.8 MCV 90 MCH 30.6 MCHC 34.0 RDW 30.7 H Plt Count 167 Seg Neutrophils % 55.7 Lymphocytes % 27.2 Monocytes % 10.7 Eosinophils % 5.7 Basophils % 0.7 Absolute Neutrophils 3.8 Absolute Lymphocytes 1.8 Absolute Monocytes 0.7 Absolute Eosinophils 0.4 Absolute Basophils 0.0 Sodium 137.2 Potassium 4.5 Chloride 107 Carbon Dioxide 21 L Anion Gap 9 BUN 15 Creatinine 0.69 Est GFR ( Amer) > 60 Est GFR (Non-Af Amer) > 60 Glucose 90 Calcium 8.8 Magnesium Total Bilirubin 1.0 AST 60 H ALT 42 Alkaline Phosphatase 250 H Ammonia Total Protein 6.4 Albumin 3.0 L Triglycerides 69 Cholesterol 207.20 H LDL Cholesterol Direct 128 H VLDL Cholesterol 14.0 HDL Cholesterol 44 Amylase Lipase TSH Free T4 03/15/19 20:25 Troponin I < 0.012 Impressions: Chest X-Ray 03/15/19 22:03 IMPRESSION: Small bibasilar atelectasis-effusion. No interval worsening. Assessment & Plan - Diagnosis (1) Adult failure to thrive Plan: weakness and frailty due to multiple admissions and sedation that has accelerated in the past several months poor historian spouse is elderly as well have been in communication with her daughter who is out of state needs to have a discussion about how to move forward since multiple GI procedures I suspect will only make her declining mental status even worse (2) Non-alcoholic cirrhosis Is this a current diagnosis for this admission?: Yes Plan: she has both GAVE and banding for her varices in the past this has been done both here at [facility] as well as [place] with another GI practice she is scheduled for an outpatient EGD tomorrow as noted her Hgb is stable and I am very concerned about sedation in this patient I would favor not proceeding with her procedure tomorrow unless there is a s ignificant indication, however at this point family expectation needs to be re-oriented away from a lways expecting a procedure when the risk- benefit ratio will not favor the patient. - Time Time Spent: 50 to 70 Minutes
[2019-03-17] MEDS: HYDROCHLOROTHIAZIDE 12.5 MG TABLET PO SCH (08:38)
[2019-03-17 08:58] LABS: FREE T3 2.6 pg/mL (2.77-5.27)
[2019-03-17 09:12] LABS: THYROID STIMULATING HORMONE 3.09 uIU/mL (0.47-4.68)
[2019-03-17] MEDS: DULOXETINE HCL 30 MG CAPSULE.DR PO SCH ×2 (10:16→21:24)
[2019-03-17] MEDS: SPIRONOLACTONE 25 MG TABLET PO SCH (10:16)
[2019-03-17] MEDS: AMLODIPINE BESYLATE 5 MG TABLET PO SCH (10:16)
[2019-03-17] MEDS: NADOLOL 40 MG TABLET PO SCH (10:16)
[2019-03-17] MEDS: NORMAL SALINE 500 ML with OCTREOTIDE ACETATE 500 MCG IV PRN ×2 (13:20)
[2019-03-17] MEDS: CEFTRIAXONE SODIUM 1,000 MG in DEXTROSE 5%-WATER 50 ML IV SCH (13:22)
[2019-03-18] MEDS: PANTOPRAZOLE SODIUM 20 MG TABLET.DR PO SCH (05:48)
[2019-03-18] MEDS: LEVOTHYROXINE SODIUM 0.05 MG TABLET PO SCH (05:48)
[2019-03-18 05:58] LABS: ABSOLUTE BASOPHILS # (AUTO) 0.1 10^3/uL (0.0-0.2); ABSOLUTE EOSINOPHILS # (AUTO) 0.8 10^3/uL (0.0-0.6); ABSOLUTE LYMPHOCYTES (AUTO) 1.9 10^3/uL (0.5-4.7); ABSOLUTE MONOCYTES (AUTO) 0.8 10^3/uL (0.1-1.4); ABSOLUTE NEUT (AUTO) 3.2 10^3/uL (1.7-8.2); BASOPHILS % (AUTO) 1.2 % (0-2); EOSINOPHILS % (AUTO) 11.1 % (0-6); HEMATOCRIT 34.7 % (36.0-47.0); HEMOGLOBIN 11.7 g/dL (12.0-15.5); LYMPHOCYTES % (AUTO) 28.2 % (13-45); MEAN CORPUSCULAR HEMOGLOBIN 30.7 pg (27.0-33.4); MEAN CORPUSCULAR HGB CONC 33.9 g/dL (32.0-36.0); MEAN CORPUSCULAR VOLUME 91 fl (80-97); MONOCYTES % (AUTO) 12.2 % (3-13); PLATELET COUNT 165 10^3/uL (150-450); RED BLOOD COUNT 3.82 10^6/uL (3.72-5.28); SEGMENTED NEUTROPHILS % (AUTO) 47.3 % (42-78); TOTAL CELLS COUNTED % (AUTO) 100 %; WHITE BLOOD COUNT 6.8 10^3/uL (4.0-10.5)
[2019-03-18 06:17] LABS: ALANINE AMINOTRANSFERASE 38 U/L (9-52); ALBUMIN 2.7 g/dL (3.5-5.0); ALKALINE PHOSPHATASE 224 U/L (38-126); ANION GAP 9 (5-19); ASPARTATE AMINO TRANSFERASE 61 U/L (14-36); BILIRUBIN,DIRECT 0.5 mg/dL (0.0-0.4); BLOOD UREA NITROGEN 13 mg/dL (7-20); CALCIUM 8.4 mg/dL (8.4-10.2); CARBON DIOXIDE 21 mmol/L (22-30); CHLORIDE 105 mmol/L (98-107); GLUCOSE 73 mg/dL (75-110); POTASSIUM 4.6 mmol/L (3.6-5.0); SODIUM 134.9 mmol/L (137-145)
[2019-03-18 06:40] LABS: ANISOCYTOSIS 3+; BURR CELLS 1+; OVALOCYTES SLIGHT; PLATELET COMMENT ADEQUATE; POIKILOCYTOSIS 2+; SCHISTOCYTES SLIGHT; TARGET CELLS SLIGHT
[2019-03-18] MEDS ORDERED: FLUMAZENIL INJ 0.5 MG/5 ML VIAL ONE (07:27)
[2019-03-18] MEDS ORDERED: EPINEPHRINE INJ 1 MG/10 ML DISP.SYRIN ONE (07:27)
[2019-03-18] MEDS ORDERED: DIPHENHYDRAMINE HCL 50 MG/ML VIAL ONE (07:27)
[2019-03-18] MEDS ORDERED: GLUCAGON,HUMAN RECOMB 1 MG INJ ONE (07:27)
[2019-03-18] MEDS ORDERED: MIDAZOLAM 2 MG/2 ML INJ ONE (07:27)
[2019-03-18] MEDS ORDERED: FENTANYL CITRATE INJ/PF 100 MCG/2 ML AMPUL ONE (07:27)
[2019-03-18] MEDS ORDERED: ONDANSETRON HCL INJ/PF 4 MG/2 ML SDV ONE (07:27)
[2019-03-18] MEDS ORDERED: NALOXONE HCL INJ/PF 0.4 MG/1 ML SDV ONE (07:27)
--- NOTE | 2019-03-18 08:03 | PDOC PROGRESS REPORT ---
Subjective Progress Note for:: 03/18/19 Subjective:: No chest pain or difficulty with breathing. No fever or chills. No nausea, vomiting, abdominal pain, hematemesis, hematochexia, or tarry stool. She continue to demonstrate some degree of confusion. GI consult input appreciated. Reason For Visit: LIVER CIRRHOSIS WITH VARICEAL BLEED Physical Exam Vital Signs: Temp Pulse Resp BP Pulse Ox 98.3 F 72 14 116/51 L 99 03/18/19 04:44 03/18/19 06:56 03/18/19 04:44 03/18/19 04:44 03/18/19 04:44 Intake & Output 03/17/19 03/18/19 03/19/19 06:59 06:59 06:59 Intake Total 1292 1167 Balance 1292 1167 Weight 48.8 kg 49.6 kg Physical Exam: General appearance: PRESENT: no acute distress Head exam: PRESENT: atraumatic, normocephalic Eye exam: PRESENT: conjunctiva pink. ABSENT: pallor, scleral icterus Ear exam: PRESENT: normal external ear exam Mouth exam: PRESENT: moist Respiratory exam: PRESENT: clear to auscultation brigida Cardiovascular exam: PRESENT: RRR. ABSENT: diastolic murmur, rubs, systolic murmur GI/Abdominal exam: PRESENT: normal bowel sounds, soft. ABSENT: distended, guarding, mass, organomegaly, rebound, tenderness Extremities exam: ABSENT: pedal edema Musculoskeletal exam: PRESENT: normal inspection Neurological exam: PRESENT: alert, awake, oriented to person, oriented to place, oriented to time, oriented to situation, CN II-XII grossly intact. ABSENT: motor sensory deficit Psychiatric exam: PRESENT: appropriate affect, normal mood. ABSENT: homicidal ideation, suicidal ideation Skin exam: PRESENT: dry, warm Results Laboratory Results: 03/18/19 04:34 03/18/19 04:34 03/17/19 03/18/19 03/18/19 04:27 04:34 04:34 WBC 6.8 RBC 3.82 Hgb 11.7 L Hct 34.7 L MCV 91 MCH 30.7 MCHC 33.9 RDW 30.0 H Plt Count 165 Seg Neutrophils % 47.3 Lymphocytes % 28.2 Monocytes % 12.2 Eosinophils % 11.1 H Basophils % 1.2 Absolute Neutrophils 3.2 Absolute Lymphocytes 1.9 Absolute Monocytes 0.8 Absolute Eosinophils 0.8 H Absolute Basophils 0.1 Sodium 134.9 L Potassium 4.6 Chloride 105 Carbon Dioxide 21 L Anion Gap 9 BUN 13 Creatinine 0.59 Est GFR ( Amer) > 60 Est GFR (Non-Af Amer) > 60 Glucose 73 L Calcium 8.4 Total Bilirubin 1.0 AST 61 H ALT 38 Alkaline Phosphatase 224 H Total Protein 6.0 L Albumin 2.7 L TSH 3.09 Free T4 1.00 Free T3 pg/mL 2.60 L 03/15/19 20:25 Troponin I < 0.012 Impressions: Chest X-Ray 03/15/19 22:03 IMPRESSION: Small bibasilar atelectasis-effusion. No interval worsening. Assessment & Plan - Diagnosis (1) Bleeding esophageal varices Qualifiers: Esophageal varices type: idiopathic Qualified Code(s): I85.01 - Esophageal varices with bleeding Is this a current diagnosis for this admission?: Yes (2) Non-alcoholic cirrhosis Is this a current diagnosis for this admission?: Yes (3) Diabetes mellitus type 2 in nonobese Is this a current diagnosis for this admission?: Yes (4) Essential hypertension Is this a current diagnosis for this admission?: Yes (5) GERD (gastroesophageal reflux disease) Qualifiers: Esophagitis presence: esophagitis presence not specified Qualified Code(s): K21.9 - Gastro-esophageal reflux disease without esophagitis Is this a current diagnosis for this admission?: Yes (6) Chronic pain syndrome Is this a current diagnosis for this admission?: Yes (7) Disc disease, degenerative, lumbar or lumbosacral Is this a current diagnosis for this admission?: Yes (8) Osteoarthritis involving multiple joints on both sides of body Is this a current diagnosis for this admission?: Yes (9) Abnormal thyroid function test Is this a current diagnosis for this admission?: Yes - Time Time Spent with patient: 25-34 minutes Medications reviewed and adjusted accordingly: Yes Anticipated discharge: SNF - for short term rehabilitation. Within: Other - Inpatient Certification Based on my medical assessment, after consideration of the patient's comorbidities, presenting symptoms, or acuity I expect that the services needed warrant INPATIENT care.: Yes I certify that my determination is in accordance with my understanding of Medicare's requirements for reasonable and necessary INPATIENT services [42 CFR 412.3e].: Yes Medical Necessity: Significant Comorbidiites Make Outpatient Treatment Too Risky, Need Close Monitoring Due to Risk of Patient Decompensation, Need For IV Fluids, Need For Continuous Telemetry Monitoring, Risk of Complication if Not Cared For in Hospital, Risk of Diagnosis Which Will Require Inpatient Eval/Care/Monitoring - Plan Summary Plan Summary: Continue current medication management. I discussed GI consult recommendations with daughter and POA, she is agreeable with current care plan. She is requesting placement in a facility in [place] off [address] for rehabilitation. She will get the facility information for the brand planner.
[2019-03-18] MEDS: INSULIN LISPRO 100 UNIT/ML 3 ML VIAL SUBCUT SCH ×4 (08:04→23:39)
--- NOTE | 2019-03-18 08:32 | Operative Report ---
Operative Report DATE OF SURGERY: 03/18/19 Operative Report: The risks benefits and alternatives of the procedure explained to the patient in detail and informed consent is obtained.A GIF Olympus video scope was inserted into the patient's mouth and hypopharynx, the esophagus is identified intubated and insufflated, the scope was then advanced through the esophagus stomach and duodenum, retroflexion maneuver is done, the esophagus stomach and first and second portions of the duodenum examined. PREOPERATIVE DIAGNOSIS: History of cirrhosis, previous history of esophageal varices. Known history of gastric antral vascular ectasias POSTOPERATIVE DIAGNOSIS: No further varices seen next photodocumented. Hiatal hernia. Gastric antral vascular ectasia there is ablated using argon plasma well logging captain mud analysis device OPERATION: EGD with ablation/control of hemorrhage SURGEON: BLANQUITA LOWERY ANESTHESIA: Moderate Sedation - 1 mg of Versed. TISSUE REMOVED OR ALTERED: None. COMPLICATIONS: None. ESTIMATED BLOOD LOSS: None. INTRAOPERATIVE FINDINGS: As noted above. PROCEDURE: Patient tolerated the procedure well. No immediate postprocedure complications are noted. Patient is sent back to her room in good condition. Resume regular diet less than 2 g sodium Resume previous activity level Follow-up H&H Minimal sedation provided since the ongoing mental status decline Follow-up as outpatient
[2019-03-18] MEDS: SPIRONOLACTONE 25 MG TABLET PO SCH (09:13)
[2019-03-18] MEDS: AMLODIPINE BESYLATE 5 MG TABLET PO SCH (09:13)
[2019-03-18] MEDS: HYDROCHLOROTHIAZIDE 12.5 MG TABLET PO SCH (09:13)
[2019-03-18] MEDS: DULOXETINE HCL 30 MG CAPSULE.DR PO SCH ×2 (09:13→21:13)
[2019-03-18] MEDS: NADOLOL 40 MG TABLET PO SCH (09:13)
[2019-03-18] MEDS: CEFTRIAXONE SODIUM 1,000 MG in DEXTROSE 5%-WATER 50 ML IV SCH (12:59)
[2019-03-19] MEDS: PANTOPRAZOLE SODIUM 20 MG TABLET.DR PO SCH (05:17)
[2019-03-19] MEDS: LEVOTHYROXINE SODIUM 0.05 MG TABLET PO SCH (05:17)
[2019-03-19 05:22] LABS: ALANINE AMINOTRANSFERASE 45 U/L (9-52); ALBUMIN 3.1 g/dL (3.5-5.0); ALKALINE PHOSPHATASE 262 U/L (38-126); ANION GAP 9 (5-19); ASPARTATE AMINO TRANSFERASE 66 U/L (14-36); BILIRUBIN,DIRECT 0.4 mg/dL (0.0-0.4); BLOOD UREA NITROGEN 14 mg/dL (7-20); CALCIUM 8.4 mg/dL (8.4-10.2); CARBON DIOXIDE 23 mmol/L (22-30); CHLORIDE 102 mmol/L (98-107); GLUCOSE 87 mg/dL (75-110); POTASSIUM 4.4 mmol/L (3.6-5.0); SODIUM 133.9 mmol/L (137-145); TOTAL PROTEIN 6.8 g/dL (6.3-8.2)
[2019-03-19 05:24] LABS: ABSOLUTE BASOPHILS # (AUTO) 0.1 10^3/uL (0.0-0.2); ABSOLUTE EOSINOPHILS # (AUTO) 0.9 10^3/uL (0.0-0.6); ABSOLUTE LYMPHOCYTES (AUTO) 2.1 10^3/uL (0.5-4.7); ABSOLUTE MONOCYTES (AUTO) 0.8 10^3/uL (0.1-1.4); ABSOLUTE NEUT (AUTO) 3.9 10^3/uL (1.7-8.2); BASOPHILS % (AUTO) 1.8 % (0-2); HEMATOCRIT 37.6 % (36.0-47.0); HEMOGLOBIN 12.8 g/dL (12.0-15.5); LYMPHOCYTES % (AUTO) 27.2 % (13-45); MEAN CORPUSCULAR HGB CONC 34.1 g/dL (32.0-36.0); MEAN CORPUSCULAR VOLUME 91 fl (80-97); MONOCYTES % (AUTO) 10.3 % (3-13); PLATELET COUNT 162 10^3/uL (150-450); RED BLOOD COUNT 4.13 10^6/uL (3.72-5.28); RED CELL DISTRIBUTION WIDTH 29.1 % (11.5-14.0); SEGMENTED NEUTROPHILS % (AUTO) 49.7 % (42-78); TOTAL CELLS COUNTED % (AUTO) 100 %; WHITE BLOOD COUNT 7.8 10^3/uL (4.0-10.5)
[2019-03-19 05:55] LABS: PLATELET COMMENT ADEQUATE
[2019-03-19 05:57] LABS: ANISOCYTOSIS 4+; BURR CELLS SLIGHT; OVALOCYTES SLIGHT; POIKILOCYTOSIS SLIGHT; SCHISTOCYTES SLIGHT; TARGET CELLS SLIGHT
[2019-03-19] MEDS: INSULIN LISPRO 100 UNIT/ML 3 ML VIAL SUBCUT SCH ×4 (08:47→21:27)
[2019-03-19] MEDS: SPIRONOLACTONE 25 MG TABLET PO SCH (09:16)
[2019-03-19] MEDS: AMLODIPINE BESYLATE 5 MG TABLET PO SCH (09:16)
[2019-03-19] MEDS: HYDROCHLOROTHIAZIDE 12.5 MG TABLET PO SCH (09:16)
[2019-03-19] MEDS: DULOXETINE HCL 30 MG CAPSULE.DR PO SCH ×2 (09:16→21:21)
[2019-03-19] MEDS: NADOLOL 40 MG TABLET PO SCH (09:16)
[2019-03-19] MEDS: CEFTRIAXONE SODIUM 1,000 MG in DEXTROSE 5%-WATER 50 ML IV SCH (12:42)
--- NOTE | 2019-03-19 15:48 | PDOC PROGRESS REPORT ---
Subjective Progress Note for:: 03/19/19 Subjective:: patient underwent EGD yesterday with only minimal sedation she had some AVM's that were ablated using APC/ ERBE device she had grade 1 varices in her esophagus and therefore was not banded her Hgb remains stable for now had conversation with Krupa Latif, her daughter about try to minimize procedures since she has a declining functional status she did voice agreement with this no significant overnight events Reason For Visit: LIVER CIRRHOSIS WITH VARICEAL BLEED Physical Exam Vital Signs: Temp Pulse Resp BP Pulse Ox 98.4 F 65 14 139/55 H 100 03/19/19 11:20 03/19/19 11:20 03/19/19 11:20 03/19/19 11:20 03/19/19 11:20 Intake & Output 03/18/19 03/19/19 03/20/19 06:59 06:59 06:59 Intake Total 1167 1300 100 Output Total 1300 250 Balance 1167 0 -150 Weight 49.6 kg 49.1 kg General appearance: PRESENT: no acute distress, thin Head exam: PRESENT: atraumatic, normocephalic Eye exam: PRESENT: EOMI, PERRLA. ABSENT: scleral icterus Mouth exam: PRESENT: moist, neck supple Throat exam: ABSENT: tonsillar exudate, tonsillogmegaly Neck exam: ABSENT: meningismus, tenderness, thyromegaly Respiratory exam: PRESENT: symmetrical. ABSENT: tachypnea, wheezes Cardiovascular exam: PRESENT: +S1, +S2 GI/Abdominal exam: PRESENT: soft. ABSENT: rebound, rigid, tenderness Neurological exam: PRESENT: CN II-XII grossly intact Skin exam: PRESENT: normal color. ABSENT: mottled, pallor, urticaria, vesicles Results Laboratory Results: 03/19/19 04:34 03/19/19 04:34 03/19/19 03/19/19 04:34 04:34 WBC 7.8 RBC 4.13 Hgb 12.8 Hct 37.6 MCV 91 MCH 31.0 MCHC 34.1 RDW 29.1 H Plt Count 162 Seg Neutrophils % 49.7 Lymphocytes % 27.2 Monocytes % 10.3 Eosinophils % 11.0 H Basophils % 1.8 Absolute Neutrophils 3.9 Absolute Lymphocytes 2.1 Absolute Monocytes 0.8 Absolute Eosinophils 0.9 H Absolute Basophils 0.1 Sodium 133.9 L Potassium 4.4 Chloride 102 Carbon Dioxide 23 Anion Gap 9 BUN 14 Creatinine 0.69 Est GFR ( Amer) > 60 Est GFR (Non-Af Amer) > 60 Glucose 87 Calcium 8.4 Total Bilirubin 1.0 AST 66 H ALT 45 Alkaline Phosphatase 262 H Total Protein 6.8 Albumin 3.1 L 03/15/19 20:25 Troponin I < 0.012 Impressions: Chest X-Ray 03/15/19 22:03 IMPRESSION: Small bibasilar atelectasis-effusion. No interval worsening. Assessment & Plan - Diagnosis (1) Adult failure to thrive Is this a current diagnosis for this admission?: Yes Plan: will need intermediate rehab, I do not believe that she is capable of caring for herself anymore and that her who is also elderly cannot assist with that intermediate care facility should be seriously considered and should carefully evaluate all procedure in the future (2) Non-alcoholic cirrhosis Is this a current diagnosis for this admission?: Yes Plan: cryptogenic cirrhosis termite control service representative prognosis is guarded will follow - Time Time Spent with patient: 15-24 minutes
--- NOTE | 2019-03-19 17:28 | PDOC PROGRESS REPORT ---
Subjective Progress Note for:: 03/19/19 Subjective:: No chest pain or difficulty with breathing. No fever or chills. No nausea, vomiting, or abdominal pain. PO intake is fair. Reason For Visit: LIVER CIRRHOSIS WITH VARICEAL BLEED Physical Exam Vital Signs: Temp Pulse Resp BP Pulse Ox 98.4 F 73 14 139/55 H 100 03/19/19 11:20 03/19/19 14:00 03/19/19 11:20 03/19/19 11:20 03/19/19 11:20 Intake & Output 03/18/19 03/19/19 03/20/19 06:59 06:59 06:59 Intake Total 1167 1300 100 Output Total 1300 250 Balance 1167 0 -150 Weight 49.6 kg 49.1 kg Physical Exam: General appearance: PRESENT: no acute distress Head exam: PRESENT: atraumatic, normocephalic Eye exam: PRESENT: conjunctiva pink. ABSENT: pallor, scleral icterus Ear exam: PRESENT: normal external ear exam Mouth exam: PRESENT: moist Respiratory exam: PRESENT: clear to auscultation brigida Cardiovascular exam: PRESENT: RRR. ABSENT: diastolic murmur, rubs, systolic murmur GI/Abdominal exam: PRESENT: normal bowel sounds, soft. ABSENT: distended, guarding, mass, organomegaly, rebound, tenderness Extremities exam: ABSENT: pedal edema Musculoskeletal exam: PRESENT: normal inspection Neurological exam: PRESENT: alert, awake, appropriate in simple responses. Psychiatric exam: PRESENT: appropriate affect, normal mood. ABSENT: homicidal ideation, suicidal ideation Skin exam: PRESENT: dry, warm Results Laboratory Results: 03/19/19 04:34 03/19/19 04:34 03/19/19 03/19/19 04:34 04:34 WBC 7.8 RBC 4.13 Hgb 12.8 Hct 37.6 MCV 91 MCH 31.0 MCHC 34.1 RDW 29.1 H Plt Count 162 Seg Neutrophils % 49.7 Lymphocytes % 27.2 Monocytes % 10.3 Eosinophils % 11.0 H Basophils % 1.8 Absolute Neutrophils 3.9 Absolute Lymphocytes 2.1 Absolute Monocytes 0.8 Absolute Eosinophils 0.9 H Absolute Basophils 0.1 Sodium 133.9 L Potassium 4.4 Chloride 102 Carbon Dioxide 23 Anion Gap 9 BUN 14 Creatinine 0.69 Est GFR ( Amer) > 60 Est GFR (Non-Af Amer) > 60 Glucose 87 Calcium 8.4 Total Bilirubin 1.0 AST 66 H ALT 45 Alkaline Phosphatase 262 H Total Protein 6.8 Albumin 3.1 L 03/15/19 20:25 Troponin I < 0.012 Impressions: Chest X-Ray 03/15/19 22:03 IMPRESSION: Small bibasilar atelectasis-effusion. No interval worsening. Assessment & Plan - Diagnosis (1) Bleeding esophageal varices Qualifiers: Esophageal varices type: idiopathic Qualified Code(s): I85.01 - Esophageal varices with bleeding Is this a current diagnosis for this admission?: Yes (2) Non-alcoholic cirrhosis Is this a current diagnosis for this admission?: Yes (3) Diabetes mellitus type 2 in nonobese Is this a current diagnosis for this admission?: Yes (4) Essential hypertension Is this a current diagnosis for this admission?: Yes (5) GERD (gastroesophageal reflux disease) Qualifiers: Esophagitis presence: esophagitis presence not specified Qualified Code(s): K21.9 - Gastro-esophageal reflux disease without esophagitis Is this a current diagnosis for this admission?: Yes (6) Chronic pain syndrome Is this a current diagnosis for this admission?: Yes (7) Disc disease, degenerative, lumbar or lumbosacral Is this a current diagnosis for this admission?: Yes (8) Osteoarthritis involving multiple joints on both sides of body Is this a current diagnosis for this admission?: Yes (9) Abnormal thyroid function test Is this a current diagnosis for this admission?: Yes - Time Time Spent with patient: 25-34 minutes Medications reviewed and adjusted accordingly: Yes Anticipated discharge: SNF - for rehabilitation Within: Other - Inpatient Certification Based on my medical assessment, after consideration of the patient's comorbidities, presenting symptoms, or acuity I expect that the services needed warrant INPATIENT care.: Yes I certify that my determination is in accordance with my understanding of Medicare's requirements for reasonable and necessary INPATIENT services [42 CFR 412.3e].: Yes Medical Necessity: Significant Comorbidiites Make Outpatient Treatment Too Risky, Need Close Monitoring Due to Risk of Patient Decompensation, Need For IV Fluids, Need For Continuous Telemetry Monitoring, Risk of Complication if Not Cared For in Hospital, Risk of Diagnosis Which Will Require Inpatient Eval/Care/Monitoring Post Hospital Care: D/C or Transfer Summary - Plan Summary Plan Summary: Continue current medication management. Follow up on placement efforts with planner/scheduler. Awaiting response from [facility].
[2019-03-20] MEDS: PANTOPRAZOLE SODIUM 20 MG TABLET.DR PO SCH (05:15)
[2019-03-20] MEDS: LEVOTHYROXINE SODIUM 0.05 MG TABLET PO SCH (05:15)
[2019-03-20] MEDS: INSULIN LISPRO 100 UNIT/ML 3 ML VIAL SUBCUT SCH ×2 (08:09→12:43)
[2019-03-20] MEDS: AMLODIPINE BESYLATE 5 MG TABLET PO SCH (09:43)
[2019-03-20] MEDS: HYDROCHLOROTHIAZIDE 12.5 MG TABLET PO SCH (09:43)
[2019-03-20] MEDS: SPIRONOLACTONE 25 MG TABLET PO SCH (09:43)
[2019-03-20] MEDS: DULOXETINE HCL 30 MG CAPSULE.DR PO SCH (09:44)
[2019-03-20] MEDS: NADOLOL 40 MG TABLET PO SCH (09:44)
[2019-03-20] MEDS: CEFTRIAXONE SODIUM 1,000 MG in DEXTROSE 5%-WATER 50 ML IV SCH (13:14)
[2019-03-20 14:14] VITALS: BP 140/54
--- NOTE | 2019-03-20 15:04 | PDOC TRANSFER SUMMARY ---
General - Admit/Disc Date/PCP Admission Date/Primary Care Provider: 03/16/19 11:28 ALISSA ESPINOZA Discharge Date: 03/20/19 - Discharge Diagnosis (1) Toxic metabolic encephalopathy Is this a current diagnosis for this admission?: Yes Summary: Resolving. (2) Serum ammonia increased Is this a current diagnosis for this admission?: Yes Summary: Resolving. (3) Bleeding esophageal varices Is this a current diagnosis for this admission?: Yes Summary: Resolved. (4) Non-alcoholic cirrhosis Is this a current diagnosis for this admission?: Yes (5) Diabetes mellitus type 2 in nonobese Is this a current diagnosis for this admission?: Yes Summary: Diet controlled. (6) Essential hypertension Is this a current diagnosis for this admission?: Yes (7) GERD (gastroesophageal reflux disease) Is this a current diagnosis for this admission?: Yes (8) Hypothyroidism Is this a current diagnosis for this admission?: Yes (9) Chronic pain syndrome Is this a current diagnosis for this admission?: Yes (10) Disc disease, degenerative, lumbar or lumbosacral Is this a current diagnosis for this admission?: Yes (11) Osteoarthritis involving multiple joints on both sides of body Is this a current diagnosis for this admission?: Yes (12) Abnormal thyroid function test Is this a current diagnosis for this admission?: Yes - Additional Information Resuscitation Status: Do Not Resuscitate Home Medications: Amlodipine Besylate [Norvasc 5 mg Tablet] 5 mg PO DAILY 07/20/18 Duloxetine HCl [Cymbalta] 60 mg PO Q12 07/20/18 Nadolol [Corgard 40 mg Tablet] 40 mg PO DAILY 07/20/18 Dexlansoprazole [Dexilant 30 mg Capsule] 30 mg PO DAILY 02/16/19 Spironolactone [Aldactone 25 mg Tablet] 25 mg PO DAILY 02/16/19 Hydrochlorothiazide [Hydrodiuril 12.5 mg Tablet] 12.5 mg PO QAM 03/16/19 Levothyroxine Sodium [Synthroid 0.05 mg Tablet] 0.05 mg PO Q6AM tablet 03/20/19 History of Present Illness Admission Date/PCP: 03/16/19 11:28 ALISSA ESPINOZA History of Present Illness: GIOVANNY RODRÍGUEZ is a 79 year old female she has a history of nonalcoholic liver cirrhosis complicated with esophageal varices, history of GI bleed she was brought to the emergency room last night by her family because of rectal bleed, vomiting, altered mental status, extremely fatigue. She was in the emergency room 3 days earlier for evaluation of vomiting blood, she was evaluated and discharged home. She has a history of liver cirrhosis with esophageal varices she is scheduled to have EGD in 3 days time for possible banding of the varices, Dr. Rubin is the GI physician, Dr. espinoza is the primary care physician. When I saw this patient she looks very frail, the body mass index is 19, she lives with the spouse who also is very elderly I reviewed the records from prior admission, she was admitted to this hospital on 02/16/[address] Espinoza for evaluation of abdominal pain. 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 Hospital Course Hospital Course: She was admitted for upper GI bleed and possible toxic encephalopathy from elevated ammonia as a result of her crytpogenic cirrhosis. She was initially managed with IV Octreotide infusion due to concern for upper gastrointestinal variceal bleed. There was no recurrence of reported hematemesis. She was maintain on IV Rocephin due to concern for possible bacteremia. She was seen in consultation by Dr Rubin, singe machine operator, She had EGD completed on 03/18/2019 that revealed no further varices or variceal bleeding with hiatal hernia and gastric antral vascular ectasia that was ablated. Post procedure she has remain stable and participating in physical therapy sessions. She is agreeable to SNF placement for short term rehabilitation. She will be transferred to [facility] today. She will follow up in the office upon dis charge from the SNF. Physical Exam Vital Signs: Temp Pulse Resp BP Pulse Ox 97.1 F 71 13 140/54 H 100 03/20/19 11:46 03/20/19 11:46 03/20/19 11:46 03/20/19 11:46 03/20/19 11:46 Intake & Output 03/19/19 03/20/19 03/21/19 06:59 06:59 06:59 Intake Total 1300 577 287 Output Total 1300 1550 Balance 0 -973 287 Weight 49.1 kg 48.8 kg General appearance: PRESENT: no acute distress Head exam: PRESENT: atraumatic, normocephalic Eye exam: PRESENT: conjunctiva pink. ABSENT: pallor, scleral icterus Ear exam: PRESENT: normal external ear exam Mouth exam: PRESENT: moist Respiratory exam: PRESENT: clear to auscultation brigida Cardiovascular exam: PRESENT: RRR. ABSENT: diastolic murmur, rubs, systolic murmur GI/Abdominal exam: PRESENT: normal bowel sounds, soft. ABSENT: distended, guarding, mass, organomegaly, rebound, tenderness Extremities exam: ABSENT: pedal edema Musculoskeletal exam: PRESENT: normal inspection Neurological exam: PRESENT: alert, awake, appropriate in simple responses. Psychiatric exam: PRESENT: appropriate affect, normal mood. ABSENT: homicidal ideation, suicidal ideation Skin exam: PRESENT: dry, warm Results Laboratory Results: 03/19/19 04:34 03/19/19 04:34 03/17/19 04:27 Reverse T3 27.2 H 03/15/19 20:25 Troponin I < 0.012 Impressions: Chest X-Ray 03/15/19 22:03 IMPRESSION: Small bibasilar atelectasis-effusion. No interval worsening. Transfer Plan - Disposition Transfer Plan: Transfer to [facility] for short term rehabilitation. Facility staff should call office before discharge home for follow up appointment. Qualifiers - * PATIENT BEING DISCHARGED WITH ANY OF THE FOLLOWING DIAGNOSIS: No Acute Heart Failure Is this a Heart Failure Patient?: No Plan Discharge Plan: Transfer to [facility] for short term rehabilitation. Facility staff should call office before discharge home for follow up appointment.
== END 2019-03-20 17:10 | DRG 368 ==
LOC: ER 19:11 → EH 03-16 02:22 → 4N 03-16 03:45 → OBSVTOIN 03-16 11:28 → 3W 03-16 14:19
PROVIDERS: ADMIT Internal Medicine Geriatric Medicine; ATTEND Internal Medicine Geriatric Medicine
PROC: 0W3P8ZZ Control Bleeding in Gastrointestinal Tract, Via Natural or Artificial Opening Endoscopic (ICD-10-PCS; principal; 2019-03-18 08:30)
DX: I85.01 Esophageal varices with bleeding (principal); G92 Toxic encephalopathy; E72.20 Disorder of urea cycle metabolism, unspecified; K31.811 Angiodysplasia of stomach and duodenum with bleeding; E03.9 Hypothyroidism, unspecified; K74.69 Other cirrhosis of liver; I10 Essential (primary) hypertension; E11.8 Type 2 diabetes mellitus with unspecified complications; R62.7 Adult failure to thrive; K21.9 Gastro-esophageal reflux disease without esophagitis; G89.4 Chronic pain syndrome; M51.37 Other intervertebral disc degeneration, lumbosacral region; M19.90 Unspecified osteoarthritis, unspecified site; K44.9 Diaphragmatic hernia without obstruction or gangrene
CPT/HCPCS: 36415; 43270; 71045; 80048; 80053; 80061; 80076; 80307; 81001; 82140; 82150; 82962; 83036; 83690; 83735; 84439; 84443; 84481; 84482; 84484; 85025; 85610; 85730; 86850; 86900; 86901; 93005; 93010; 99285; G0378; J0171; J0696; J1200; J1610; J2250; J2310; J2354; J2405; J3010; J3490; J7040; J7060

== ENCOUNTER 2019-04-04 10:22 | Inpatient (IN) | payer MEDICARE, OTHER ==
[2019-04-04 11:28] LABS: ABSOLUTE EOSINOPHILS # (AUTO) 0.3 10^3/uL (0.0-0.6); ABSOLUTE LYMPHOCYTES (AUTO) 1.8 10^3/uL (0.5-4.7); ABSOLUTE MONOCYTES (AUTO) 0.6 10^3/uL (0.1-1.4); ABSOLUTE NEUT (AUTO) 2.4 10^3/uL (1.7-8.2); BASOPHILS % (AUTO) 0.8 % (0-2); HEMATOCRIT 36.2 % (36.0-47.0); HEMOGLOBIN 12.5 g/dL (12.0-15.5); LYMPHOCYTES % (AUTO) 35.9 % (13-45); MEAN CORPUSCULAR HEMOGLOBIN 32.4 pg (27.0-33.4); MEAN CORPUSCULAR HGB CONC 34.5 g/dL (32.0-36.0); MEAN CORPUSCULAR VOLUME 94 fl (80-97); MONOCYTES % (AUTO) 11.8 % (3-13); PLATELET COUNT 163 10^3/uL (150-450); RED BLOOD COUNT 3.86 10^6/uL (3.72-5.28); RED CELL DISTRIBUTION WIDTH 25.6 % (11.5-14.0); SEGMENTED NEUTROPHILS % (AUTO) 46.5 % (42-78); TOTAL CELLS COUNTED % (AUTO) 100 %; WHITE BLOOD COUNT 5.1 10^3/uL (4.0-10.5)
[2019-04-04 11:35] LABS: VENOUS BLOOD BASE EXCESS -0.3 mmol/L; VENOUS BLOOD HCO3 22.8 mmol/L (20-32); VENOUS BLOOD PCO2 32.5 mmHg (35-63); VENOUS BLOOD PH 7.46 (7.30-7.42)
[2019-04-04 11:38] LABS: APPEARANCE,URINE CLEAR; BILIRUBIN,URINE NEGATIVE (NEGATIVE); COLOR,URINE YELLOW; GLUCOSE, URINE NEGATIVE (NEGATIVE); KETONES,URINE NEGATIVE (NEGATIVE); LEUKOCYTE ESTERASE,URINE NEGATIVE (NEGATIVE); NITRITE,URINE NEGATIVE (NEGATIVE); PROTEIN,URINE NEGATIVE (NEGATIVE); URINE SPECIFIC GRAVITY 1.012; UROBILINOGEN,URINE NEGATIVE mg/dL (<2.0)
[2019-04-04 11:41] LABS: ALANINE AMINOTRANSFERASE 61 U/L (9-52); ALBUMIN 2.8 g/dL (3.5-5.0); ALKALINE PHOSPHATASE 286 U/L (38-126); ANION GAP 7 (5-19); ASPARTATE AMINO TRANSFERASE 80 U/L (14-36); BILIRUBIN,DIRECT 0.5 mg/dL (0.0-0.4); BILIRUBIN,TOTAL 1.4 mg/dL (0.2-1.3); BLOOD UREA NITROGEN 15 mg/dL (7-20); CALCIUM 8.7 mg/dL (8.4-10.2); CARBON DIOXIDE 22 mmol/L (22-30); CHLORIDE 103 mmol/L (98-107); GLUCOSE 152 mg/dL (75-110); POTASSIUM 4.1 mmol/L (3.6-5.0); SODIUM 132.2 mmol/L (137-145)
[2019-04-04 11:51] LABS: ANISOCYTOSIS 3+; HYPOCHROMASIA SLIGHT; POIKILOCYTOSIS SLIGHT; TOXIC VACUOLATION PRESENT
[2019-04-04 11:52] LABS: OVALOCYTES SLIGHT; PLATELET COMMENT ADEQUATE
[2019-04-04] MEDS ORDERED: LACTULOSE SYRUP 20 GM/30 ML UDCUP PO ONE (11:58)
[2019-04-04] MEDS ORDERED: ONDANSETRON HCL INJ/PF 4 MG/2 ML SDV IV ONE (12:35)
--- NOTE | 2019-04-04 13:00 | RADIOLOGY REPORT (SQ) ---
EXAM DESCRIPTION: CHEST SINGLE VIEW COMPLETED DATE/TIME: 04/04/2019 12:41 pm REASON FOR STUDY: Altered mental status COMPARISON: Chest films 03/15/2019, 02/16/2019, 07/20/2018 CT chest 11/28/2017 EXAM PARAMETERS: NUMBER OF VIEWS: One view. TECHNIQUE: Single frontal radiographic view of the chest acquired. RADIATION DOSE: NA LIMITATIONS: None. FINDINGS: LUNGS AND PLEURA: Minimal right basilar atelectasis. Lungs are otherwise well inflated an d clear. No pleural effusion or pneumothorax. MEDIASTINUM AND HILAR STRUCTURES: No masses. Contour normal. HEART AND VASCULAR STRUCTURES: Heart normal in size. Normal vasculature. BONES: No acute findings. HARDWARE: None in the chest. OTHER: No other significant finding. IMPRESSION: Minimal right basilar atelectasis. TECHNICAL DOCUMENTATION: JOB ID: [id number] [employer]- All Rights Reserved Reading location - IP/workstation name: [email or web address]
--- NOTE | 2019-04-04 13:27 | EKG REPORT ---
SEVERITY:- ABNORMAL ECG - SINUS RHYTHM LEFT BUNDLE BRANCH BLOCK : Confirmed by: Zana Duncan MD 04-Apr-2019 13:27:21
[2019-04-04] MEDS ORDERED: ONDANSETRON HCL INJ/PF 4 MG/2 ML SDV IV PRN (13:36)
--- NOTE | 2019-04-04 13:55 | ER Document Report ---
Entered by MANDA CASEY SCRIBE 04/04/19 1149 Acting as scribe for:HENRRY SIMMS MD ED General - General Stated Complaint: ALTERED MENTAL STATUS Time Seen by Provider: 04/04/19 10:52 Information source: Patient Notes: 79-year-old female that presents to the emergency department today with complaints of altered mental status. Patient has been residing at a [facility] since March 20 after being discharged from the hospital and then being unable to walk according to family. Family states yesterday the patient patient was trying to feed herself and was putting the food in her ear as well as saying nonsensical things. Patient has no complaints other than "feeling better letter". Patient denies fevers. Family states the patient has acted like this in the past when having UTIs. TRAVEL OUTSIDE OF THE [place] IN LAST 30 DAYS: No - Related Data Allergies/Adverse Reactions: codeine [Codeine] Allergy (Intermediate, Verified 11/27/18 09:21) VOMITING meperidine HCl [From Demerol] Allergy (Intermediate, Verified 11/27/18 09:21) n/v Iodinated Contrast- Oral and IV Dye [Iodinated Contrast Media - IV Dye] Allergy (Mild, Verified 11/27/18 09:21) Itching levofloxacin [From Levaquin] Allergy (Mild, Verified 11/27/18 09:21) itching fentanyl Adverse Reaction (Verified 11/27/18 09:21) "can't wake up" BEE STINGS Allergy (Uncoded 06/02/18 20:03) Anaphylaxis Past Medical History - General Information source: [facility] Records - Social History Smoking Status: Never Smoker Cigarette use (# per day): No Family History: Reviewed & Not Pertinent - Past Medical History Cardiac Medical History: Reports: Hx Hypertension, Hx Heart Murmur Pulmonary Medical History: Reports: Hx Pneumonia - hx of Endocrine Medical History: Reports: Hx Diabetes Mellitus Type 2 GI Medical History: Reports: Hx Cirrhosis, Hx Diverticulitis, Hx Gastroesophageal Reflux Disease Musculoskeletal Medical History: Reports Hx Arthritis - HANDS, BACK Psychiatric Medical History: Reports: Hx Depression Past Surgical History: Reports: Hx Abdominal Surgery - 6 banded varices, Hx Hysterectomy, Hx Orthopedic Surgery - Back surgery, Other - Surgery for GI bleeding secondary to esophageal varices secondary to cirrho - Immunizations Hx Diphtheria, Pertussis, Tetanus Vaccination: Yes Hx Pneumococcal Vaccination: 10/21/15 Review of Systems - Review of Systems Constitutional: See HPI, Weakness - generalized, Other - "not acting right" EENT: No symptoms reported Cardiovascular: No symptoms reported Respiratory: No symptoms reported Gastrointestinal: No symptoms reported Genitourinary: No symptoms reported Female Genitourinary: No symptoms reported Musculoskeletal: No symptoms reported Skin: No symptoms reported Hematologic/Lymphatic: No symptoms reported Neurological/Psychological: No symptoms reported -: Yes All other systems reviewed and negative Physical Exam - Vital signs Vitals: Resp Pulse Ox 18 98 04/04/19 10:40 04/04/19 10:40 - Notes Notes: Physical Exam: General: Alert, appears like she doesn't feel well. When asked if any specific area on her body hurts she states she just hurts all over. HEENT: Normocephalic. Atraumatic. PERRL. Extraocular movements intact. Oropharynx clear. Neck: Supple. Non-tender. Respiratory: No respiratory distress. Clear and equal breath sounds bilaterally. Cardiovascular: Regular rate and rhythm. Abdominal: Normal Inspection. Non-tender. No distension. Normal Bowel Sounds. Back: Non-tender. No deformity or step off. Extremities: Moves all four extremities. Upper extremities: Normal inspection. Normal ROM. Lower extremities: Normal inspection. No edema. Normal ROM. Neurological: Normal cognition. AAOx4. Normal speech. Psychological: Normal affect. Normal Mood. Skin: Warm. Dry. Normal color. Course - Vital Signs Vital signs: Temp Pulse Resp BP Pulse Ox 74 22 H 140/59 H 99 04/04/19 12:13 04/04/19 12:01 04/04/19 12:00 04/04/19 12:01 - Laboratory Result Diagrams: 04/04/19 10:58 04/04/19 10:58 Laboratory results interpreted by me: 04/04/19 04/04/19 04/04/19 10:58 10:58 11:22 RDW 25.6 H VBG pH VBG pCO2 Sodium 132.2 L Glucose 152 H Magnesium 1.5 L Total Bilirubin 1.4 H Direct Bilirubin 0.5 H AST 80 H ALT 61 H Alkaline Phosphatase 286 H Ammonia 47.1 H Total Protein 6.0 L Albumin 2.8 L 04/04/19 11:22 RDW VBG pH 7.46 H VBG pCO2 32.5 L Sodium Glucose Magnesium Total Bilirubin Direct Bilirubin AST ALT Alkaline Phosphatase Ammonia Total Protein Albumin - EKG Interpretation by Me EKG shows normal: Sinus rhythm, [place], Intervals, QRS Complexes, ST-T Waves Rate: Normal - 72 Rhythm: NSR [place]/QRS: LBBB When compared to previous EKG there are: No significant change - Consults Dr. Sandra Time consulted: 12:04 Consulted provider: will come to ER Critical Care Note - Critical Care Note Total time excluding time spent on procedures (mins): 30 Discharge - Discharge Clinical Impression: Acute hepatic encephalopathy, Non-alcoholic cirrhosis, Serum ammonia increased, Hyponatremia Altered mental status Qualifiers: Altered mental status type: unspecified Qualified Code(s): R41.82 - Altered mental status, unspecified Condition: Stable Disposition: ADMITTED INPATIENT Admitting Provider: Jocy (Hospitalist) Unit Admitted: Medical Floor Scribe Attestation: 04/04/19 12:09 I personally performed the services described in the documentation, reviewed and edited the documentation which was dictated to the scribe in my presence, and it accurately records my words and actions. I personally performed the services described in the documentation, reviewed and edited the documentation which was dictated to the scribe in my presence, and it accurately records my words and actions.
--- NOTE | 2019-04-04 14:26 | ADVANCED CARE ---
- Diagnosis (1) Acute hepatic encephalopathy Diagnosis Current: Yes (2) Non-alcoholic cirrhosis Diagnosis Current: Yes Attendance: Daughter Resuscitation Status: Full Code Discussion: The patient usually has excellent quality of life and her daughter says that the patient would want her life prolonged at this point, including use of CPR and mechanical ventilation. Time Spent: 10 minutes
--- NOTE | 2019-04-04 14:26 | PDOC H&P ---
History of Present Illness Admission Date/PCP: 04/04/19 12:58 KARTIK LATHAM MD History of Present Illness: GIOVANNY RODRÍGUEZ is a 79 year old female with a history of a nonalcoholic cirrhosis who was in her usual state of health until yesterday when she began to have worsening confusion and tremulousness, and was not able to feed herself with utensils as she is normally able to do. She does not typically have trouble regulating her ammonia levels and is not on lactulose at home. The patient is not really nauseated now, but just says that she does not feel very good and is not really able to say much more than that. There have been no reports of any fever. No abdominal pain. She had an episode of nausea and vomiting 2 nights ago but no further episodes since then. No dysuria. Her lab work-up was fairly normal with the exception of a mildly elevated ammonia level. She is being admitted for further management. Past Medical History Cardiac Medical History: Reports: Hypertension, Heart Murmur Denies: Coronary Artery Disease, Myocardial Infarction Pulmonary Medical History: Reports: Pneumonia - hx of Denies: Asthma, Bronchitis, Chronic Obstructive Pulmonary Disease (COPD) Neurological Medical History: Denies: Seizures Endocrine Medical History: Reports: Diabetes Mellitus Type 2 GI Medical History: Reports: Cirrhosis, Diverticulitis, Gastroesophageal Reflux Disease Denies: Hepatitis, Hiatal Hernia Musculoskeltal Medical History: Reports: Arthritis - HANDS, BACK Psychiatric Medical History: Reports: Depression Hematology: Reports: Anemia Denies: Sickle Cell Disease Past Surgical History Past Surgical History: Reports: Hysterectomy, Orthopedic Surgery - Back surgery, Other - Surgery for GI bleeding secondary to esophageal varices secondary to cirrho Denies: Amputation Social History Smoking Status: Never Smoker Frequency of Alcohol Use: None Hx Recreational Drug Use: No Drugs: None Hx Prescription Drug Abuse: No Family History Family History: Reviewed & Not Pertinent Parental Family History Reviewed: No - Unable to obtain Children Family History Reviewed: No - Unable to obtain Sibling(s) Family History Reviewed.: No - Unable to obtain Medication/Allergy Home Medications: Amlodipine Besylate [Norvasc 5 mg Tablet] 5 mg PO DAILY 07/20/18 Duloxetine HCl [Cymbalta] 60 mg PO Q12 07/20/18 Nadolol [Corgard 40 mg Tablet] 40 mg PO DAILY 07/20/18 Dexlansoprazole [Dexilant 30 mg Capsule] 30 mg PO DAILY 02/16/19 Spironolactone [Aldactone 25 mg Tablet] 25 mg PO DAILY 02/16/19 Hydrochlorothiazide [Hydrodiuril 12.5 mg Tablet] 12.5 mg PO QAM 03/16/19 Levothyroxine Sodium [Synthroid 0.05 mg Tablet] 0.05 mg PO Q6AM tablet 03/20/19 Allergies/Adverse Reactions: codeine [Codeine] Allergy (Intermediate, Verified 11/27/18 09:21) VOMITING meperidine HCl [From Demerol] Allergy (Intermediate, Verified 11/27/18 09:21) n/v Iodinated Contrast- Oral and IV Dye [Iodinated Contrast Media - IV Dye] Allergy (Mild, Verified 11/27/18 09:21) Itching levofloxacin [From Levaquin] Allergy (Mild, Verified 11/27/18 09:21) itching fentanyl Adverse Reaction (Verified 11/27/18 09:21) "can't wake up" BEE STINGS Allergy (Uncoded 06/02/18 20:03) Anaphylaxis Review of Systems ROS unobtainable: Due to mental status Physical Exam Vital Signs: Temp Pulse Resp BP Pulse Ox 74 22 H 140/59 H 99 04/04/19 12:13 04/04/19 12:01 04/04/19 12:00 04/04/19 12:01 Intake & Output 04/03/19 04/04/19 04/05/19 06:59 06:59 06:59 Weight 48.534 kg General appearance: PRESENT: disheveled, severe distress, thin Head exam: PRESENT: atraumatic, normocephalic Eye exam: PRESENT: PERRLA. ABSENT: conjunctival injection, nystagmus, scleral icterus Ear exam: PRESENT: normal external ear exam Mouth exam: PRESENT: neck supple Neck exam: PRESENT: full ROM. ABSENT: carotid bruit, JVD, lymphadenopathy, meningismus, tenderness, thyromegaly Respiratory exam: PRESENT: clear to auscultation brigida, symmetrical, unlabored. ABSENT: accessory muscle use, chest wall tenderness, crackles, prolonged expiratory phas, rhonchi, tachypnea, wheezes Cardiovascular exam: PRESENT: RRR, +S1, +S2 Pulses: PRESENT: normal carotid pulses Vascular exam: PRESENT: normal capillary refill GI/Abdominal exam: PRESENT: normal bowel sounds, soft. ABSENT: distended, guarding, rebound, tenderness Extremities exam: ABSENT: clubbing, pedal edema Musculoskeletal exam: PRESENT: normal inspection Neurological exam: PRESENT: altered, awake, oriented to person, CN II-XII grossly intact - Was not able to get a complete examination but she did not display any focal or lateralizing deficits. ABSENT: oriented to place, oriented to time, oriented to situation Psychiatric exam: PRESENT: flat affect Skin exam: PRESENT: dry, warm Results Laboratory Results: 04/04/19 10:58 04/04/19 10:58 04/04/19 04/04/19 04/04/19 10:58 10:58 11:22 WBC 5.1 RBC 3.86 Hgb 12.5 Hct 36.2 MCV 94 MCH 32.4 MCHC 34.5 RDW 25.6 H Plt Count 163 Seg Neutrophils % 46.5 Lymphocytes % 35.9 Monocytes % 11.8 Eosinophils % 5.0 Basophils % 0.8 Absolute Neutrophils 2.4 Absolute Lymphocytes 1.8 Absolute Monocytes 0.6 Absolute Eosinophils 0.3 Absolute Basophils 0.0 VBG pH VBG pCO2 VBG HCO3 VBG Base Excess Sodium 132.2 L Potassium 4.1 Chloride 103 Carbon Dioxide 22 Anion Gap 7 BUN 15 Creatinine 0.71 Est GFR ( Amer) > 60 Est GFR (Non-Af Amer) > 60 Glucose 152 H Lactic Acid 2.1 Calcium 8.7 Magnesium 1.5 L Total Bilirubin 1.4 H AST 80 H ALT 61 H Alkaline Phosphatase 286 H Ammonia Total Protein 6.0 L Albumin 2.8 L Urine Color Urine Appearance Urine pH Ur Specific [place] Urine Protein Urine Glucose (UA) Urine Ketones Urine Blood Urine Nitrite Ur Leukocyte Esterase Urine WBC (Auto) Urine RBC (Auto) 04/04/19 04/04/19 04/04/19 11:22 11:22 11:22 WBC RBC Hgb Hct MCV MCH MCHC RDW Plt Count Seg Neutrophils % Lymphocytes % Monocytes % Eosinophils % Basophils % Absolute Neutrophils Absolute Lymphocytes Absolute Monocytes Absolute Eosinophils Absolute Basophils VBG pH 7.46 H VBG pCO2 32.5 L VBG HCO3 22.8 VBG Base Excess -0.3 Sodium Potassium Chloride Carbon Dioxide Anion Gap BUN Creatinine Est GFR ( Amer) Est GFR (Non-Af Amer) Glucose Lactic Acid Calcium Magnesium Total Bilirubin AST ALT Alkaline Phosphatase Ammonia 47.1 H Total Protein Albumin Urine Color YELLOW Urine Appearance CLEAR Urine pH 8.0 Ur Specific [place] 1.012 Urine Protein NEGATIVE Urine Glucose (UA) NEGATIVE Urine Ketones NEGATIVE Urine Blood NEGATIVE Urine Nitrite NEGATIVE Ur Leukocyte Esterase NEGATIVE Urine WBC (Auto) 0 Urine RBC (Auto) 0 Impressions: Chest X-Ray 04/04/19 11:50 IMPRESSION: Minimal right basilar atelectasis. Assessment and Plan - Diagnosis (1) Acute hepatic encephalopathy Is this a current diagnosis for this admission?: Yes Plan: We are going to try to get some lactulose into her by mouth. Goal is for 2-3 soft BMs a day and we will monitor her mental status for improvement. (2) Non-alcoholic cirrhosis Is this a current diagnosis for this admission?: Yes Plan: We will continue her usual home prophylactic medications including those for her history of esophageal varices. - Time Time Spent with patient: 35 or more minutes - Inpatient Certification Based on my medical assessment, after consideration of the patient's comorbidities, presenting symptoms, or acuity I expect that the services needed warrant INPATIENT care.: Yes I certify that my determination is in accordance with my understanding of Medicare's requirements for reasonable and necessary INPATIENT services [42 CFR 412.3e].: Yes Medical Necessity: Need Close Monitoring Due to Risk of Patient Decompensation, Need For Continuous Telemetry Monitoring, Need for Neurological Checks
[2019-04-04] MEDS: LACTULOSE SYRUP 20 GM/30 ML UDCUP PO SCH ×2 (17:12→21:35)
[2019-04-04] MEDS: HEPARIN SOD (PORCINE) 5,000 UNIT/ML 1 ML SYRINGE SUBCUT SCH (21:35)
[2019-04-04] MEDS: DULOXETINE HCL 30 MG CAPSULE.DR PO SCH (21:35)
[2019-04-05] MEDS: HEPARIN SOD (PORCINE) 5,000 UNIT/ML 1 ML SYRINGE SUBCUT SCH ×3 (05:30→21:57)
[2019-04-05] MEDS: LACTULOSE SYRUP 20 GM/30 ML UDCUP PO SCH ×3 (05:30→21:57)
[2019-04-05] MEDS: LEVOTHYROXINE SODIUM 0.05 MG TABLET PO SCH (05:30)
[2019-04-05 05:50] LABS: ANION GAP 7 (5-19); BLOOD UREA NITROGEN 15 mg/dL (7-20); CALCIUM 8.7 mg/dL (8.4-10.2); CARBON DIOXIDE 20 mmol/L (22-30); CHLORIDE 107 mmol/L (98-107); GLUCOSE 88 mg/dL (75-110); POTASSIUM 3.9 mmol/L (3.6-5.0); SODIUM 134.3 mmol/L (137-145)
[2019-04-05] MEDS: DULOXETINE HCL 30 MG CAPSULE.DR PO SCH ×2 (09:22→21:57)
[2019-04-05] MEDS: PANTOPRAZOLE SODIUM 20 MG TABLET.DR PO SCH (09:22)
[2019-04-05] MEDS: NADOLOL 40 MG TABLET PO SCH (09:22)
[2019-04-05] MEDS: SPIRONOLACTONE 25 MG TABLET PO SCH (09:23)
[2019-04-05] MEDS ORDERED: (PENDING PHARMACY ID) (Dexlansoprazole [Dexilant 30 Mg Capsule] 30 MG) PO SCH (10:00)
--- NOTE | 2019-04-05 18:27 | PDOC PROGRESS REPORT ---
Subjective Progress Note for:: 04/05/19 Subjective:: No adverse events overnight. She is a little bit more awake and alert today. Much more interactive than she was yesterday but still seems a bit somnolent. She said she ate a little bit of her breakfast this morning. She still feels pretty tired. Reason For Visit: HEPATIC ENCEPHALOPATHY, Physical Exam Vital Signs: Temp Pulse Resp BP Pulse Ox 98.7 F 86 16 137/63 H 100 04/05/19 15:00 04/05/19 15:00 04/05/19 15:00 04/05/19 15:00 04/05/19 15:00 Intake & Output 04/04/19 04/05/19 04/06/19 06:59 06:59 06:59 Intake Total 115 Balance 115 Weight 55.2 kg General appearance: PRESENT: no acute distress, cooperative, disheveled Respiratory exam: PRESENT: clear to auscultation brigida, symmetrical, unlabored. ABSENT: accessory muscle use, chest wall tenderness, crackles, prolonged expiratory phas, rhonchi, tachypnea, wheezes Cardiovascular exam: PRESENT: RRR, +S1, +S2 Pulses: PRESENT: normal carotid pulses Vascular exam: PRESENT: normal capillary refill GI/Abdominal exam: PRESENT: normal bowel sounds, soft. ABSENT: distended, guarding, rebound, tenderness Extremities exam: ABSENT: clubbing, pedal edema Musculoskeletal exam: PRESENT: normal inspection. ABSENT: deformity Neurological exam: PRESENT: awake, oriented to person, oriented to place, oriented to situation Psychiatric exam: PRESENT: flat affect Skin exam: PRESENT: dry, warm Results Laboratory Results: 04/04/19 10:58 04/05/19 05:16 04/05/19 04/05/19 05:16 05:16 Sodium 134.3 L Potassium 3.9 Chloride 107 Carbon Dioxide 20 L Anion Gap 7 BUN 15 Creatinine 0.72 Est GFR ( Amer) > 60 Est GFR (Non-Af Amer) > 60 Glucose 88 Calcium 8.7 Ammonia 32.4 Impressions: Chest X-Ray 04/04/19 11:50 IMPRESSION: Minimal right basilar atelectasis. Assessment and Plan - Diagnosis (1) Acute hepatic encephalopathy Is this a current diagnosis for this admission?: Yes Plan: improving with lactulose. We will continue lactulose 3 times a day as her mental status improves. She may need to go home on a little bit of lactulose at home because she seems to be sensitive to serum changes her ammonia level. (2) Non-alcoholic cirrhosis Is this a current diagnosis for this admission?: Yes Plan: We will continue her usual home prophylactic medications including those for her history of esophageal varices. - Time Time Spent with patient: 15-24 minutes
[2019-04-06] MEDS: LACTULOSE SYRUP 20 GM/30 ML UDCUP PO SCH ×4 (06:45→23:33)
[2019-04-06] MEDS: LEVOTHYROXINE SODIUM 0.05 MG TABLET PO SCH (06:45)
[2019-04-06] MEDS: HEPARIN SOD (PORCINE) 5,000 UNIT/ML 1 ML SYRINGE SUBCUT SCH ×3 (06:46→23:33)
[2019-04-06] MEDS: SPIRONOLACTONE 25 MG TABLET PO SCH (10:05)
[2019-04-06] MEDS: NADOLOL 40 MG TABLET PO SCH (10:05)
[2019-04-06] MEDS: DULOXETINE HCL 30 MG CAPSULE.DR PO SCH ×2 (10:05→23:33)
[2019-04-06] MEDS: PANTOPRAZOLE SODIUM 20 MG TABLET.DR PO SCH (10:06)
[2019-04-06] MEDS ORDERED: ONDANSETRON HCL INJ/PF 4 MG/2 ML SDV IV PRN (13:00)
[2019-04-06] MEDS: RIFAXIMIN 550 MG TABLET PO SCH (17:09)
--- NOTE | 2019-04-06 17:15 | PDOC PROGRESS REPORT ---
Subjective Progress Note for:: 04/06/19 Subjective:: No adverse events overnight. Mental status is about the same as it was yesterday. Her ammonia level has paradoxically gone up. Again, mental status is about the same as it was yesterday, but still improved over her initial presentation. Reason For Visit: HEPATIC ENCEPHALOPATHY, Physical Exam Vital Signs: Temp Pulse Resp BP Pulse Ox 98.4 F 80 16 124/64 98 04/06/19 03:00 04/06/19 03:00 04/06/19 03:00 04/06/19 03:00 04/06/19 03:00 Intake & Output 04/05/19 04/06/19 04/07/19 06:59 06:59 06:59 Intake Total 115 730 Output Total 650 Balance 115 80 Weight 55.2 kg 58.5 kg General appearance: PRESENT: no acute distress, cooperative, disheveled Respiratory exam: PRESENT: clear to auscultation brigida, symmetrical, unlabored. ABSENT: accessory muscle use, chest wall tenderness, crackles, prolonged expiratory phas, rhonchi, tachypnea, wheezes Cardiovascular exam: PRESENT: RRR, +S1, +S2 Pulses: PRESENT: normal carotid pulses Vascular exam: PRESENT: normal capillary refill GI/Abdominal exam: PRESENT: normal bowel sounds, soft. ABSENT: distended, guarding, rebound, tenderness Extremities exam: ABSENT: clubbing, pedal edema Musculoskeletal exam: PRESENT: normal inspection. ABSENT: deformity Neurological exam: PRESENT: awake, oriented to person, oriented to place, oriented to situation Psychiatric exam: PRESENT: flat affect Skin exam: PRESENT: dry, warm Results Laboratory Results: 04/04/19 10:58 04/05/19 05:16 04/06/19 04:36 Ammonia 78.7 H Impressions: Chest X-Ray 04/04/19 11:50 IMPRESSION: Minimal right basilar atelectasis. Assessment and Plan - Diagnosis (1) Acute hepatic encephalopathy Is this a current diagnosis for this admission?: Yes Plan: increase her lactulose to 4 times a day and have added rifaximin. (2) Non-alcoholic cirrhosis Is this a current diagnosis for this admission?: Yes Plan: We will continue her usual home prophylactic medications including those for her history of esophageal varices. - Time Time Spent with patient: 15-24 minutes
[2019-04-07] MEDS: LACTULOSE SYRUP 20 GM/30 ML UDCUP PO SCH ×4 (05:52→23:16)
[2019-04-07] MEDS: HEPARIN SOD (PORCINE) 5,000 UNIT/ML 1 ML SYRINGE SUBCUT SCH ×3 (05:52→21:48)
[2019-04-07] MEDS: LEVOTHYROXINE SODIUM 0.05 MG TABLET PO SCH (05:53)
[2019-04-07 07:30] LABS: INTERNATIONAL RATION (INR) 1.13; PROTHROMBIN TIME 15.1 SEC (11.4-15.4)
[2019-04-07 08:12] LABS: ALANINE AMINOTRANSFERASE 61 U/L (9-52); ALBUMIN 2.4 g/dL (3.5-5.0); ALKALINE PHOSPHATASE 294 U/L (38-126); ASPARTATE AMINO TRANSFERASE 79 U/L (14-36); BILIRUBIN,DIRECT 0.5 mg/dL (0.0-0.4); BILIRUBIN,TOTAL 1.2 mg/dL (0.2-1.3); TOTAL PROTEIN 5.5 g/dL (6.3-8.2)
[2019-04-07] MEDS: RIFAXIMIN 550 MG TABLET PO SCH ×2 (11:11→18:45)
[2019-04-07] MEDS: SPIRONOLACTONE 25 MG TABLET PO SCH (11:11)
[2019-04-07] MEDS: NADOLOL 40 MG TABLET PO SCH (11:12)
[2019-04-07] MEDS: DULOXETINE HCL 30 MG CAPSULE.DR PO SCH ×2 (11:12→21:48)
[2019-04-07] MEDS: PANTOPRAZOLE SODIUM 20 MG TABLET.DR PO SCH (11:12)
--- NOTE | 2019-04-07 18:40 | PDOC PROGRESS REPORT ---
Subjective Progress Note for:: 04/07/19 Subjective:: She is a very pleasant 79 years old female patient with past medical history of type 2 diabetes mellitus, nonalcoholic cirrhosis of the liver, diverticulitis, gastroesophageal reflux disease, depression, hypertension and heart murmur presented with chief complaints of worsening confusion and tremulousness. Patient found to have elevated ammonia level. She has been managed with rifaximin and lactulose. This morning I seen patient resting in bed. She is awake alert and oriented. Her ammonia level also normalized. If she remains stable she is potential discharge for tomorrow. Reason For Visit: HEPATIC ENCEPHALOPATHY, Physical Exam Vital Signs: Temp Pulse Resp BP Pulse Ox 98.7 F 74 16 131/50 H 96 04/06/19 23:35 04/06/19 23:35 04/06/19 23:35 04/06/19 23:35 04/06/19 23:35 Intake & Output 04/06/19 04/07/19 04/08/19 06:59 06:59 06:59 Intake Total 730 820 480 Output Total 650 400 Balance 80 420 480 Weight 58.5 kg 58.9 kg General appearance: PRESENT: no acute distress Eye exam: PRESENT: conjunctiva pink Neck exam: ABSENT: carotid bruit, JVD, lymphadenopathy, thyromegaly Respiratory exam: PRESENT: clear to auscultation brigida. ABSENT: rales, rhonchi, wheezes Neurological exam: PRESENT: alert, awake, oriented to person, oriented to place, oriented to time Results Laboratory Results: 04/04/19 10:58 04/05/19 05:16 04/07/19 04/07/19 07:04 07:04 Total Bilirubin 1.2 AST 79 H ALT 61 H Alkaline Phosphatase 294 H Ammonia 26.2 Total Protein 5.5 L Albumin 2.4 L Impressions: Chest X-Ray 04/04/19 11:50 IMPRESSION: Minimal right basilar atelectasis. Assessment and Plan - Diagnosis (1) Acute hepatic encephalopathy Is this a current diagnosis for this admission?: Yes Plan: Has be resolving. (2) Non-alcoholic cirrhosis Is this a current diagnosis for this admission?: Yes Plan: Continue with lactulose and rifaximin. (3) Type 2 diabetes mellitus Is this a current diagnosis for this admission?: Yes Plan: Continue current regimen. (4) Hypertension Qualifiers: Hypertension type: essential hypertension Qualified Code(s): I10 - Essential (primary) hypertension Is this a current diagnosis for this admission?: Yes Plan: Controlled
[2019-04-08] MEDS: HEPARIN SOD (PORCINE) 5,000 UNIT/ML 1 ML SYRINGE SUBCUT SCH ×2 (06:13→13:16)
[2019-04-08] MEDS: LEVOTHYROXINE SODIUM 0.05 MG TABLET PO SCH (06:16)
[2019-04-08] MEDS: LACTULOSE SYRUP 20 GM/30 ML UDCUP PO SCH ×2 (06:16→12:36)
[2019-04-08] MEDS: RIFAXIMIN 550 MG TABLET PO SCH (09:48)
[2019-04-08] MEDS: NADOLOL 40 MG TABLET PO SCH (09:48)
[2019-04-08] MEDS: SPIRONOLACTONE 25 MG TABLET PO SCH (09:48)
[2019-04-08] MEDS: PANTOPRAZOLE SODIUM 20 MG TABLET.DR PO SCH (09:48)
[2019-04-08] MEDS: DULOXETINE HCL 30 MG CAPSULE.DR PO SCH (09:48)
[2019-04-08 10:15] VITALS: BP 124/51
--- NOTE | 2019-04-08 10:45 | PDOC TRANSFER SUMMARY ---
General - Admit/Disc Date/PCP Admission Date/Primary Care Provider: 04/04/19 12:58 ALISSA MCKEON Discharge Date: 04/08/19 - Discharge Diagnosis (1) Acute hepatic encephalopathy Is this a current diagnosis for this admission?: Yes (2) Non-alcoholic cirrhosis Is this a current diagnosis for this admission?: Yes (3) Type 2 diabetes mellitus Is this a current diagnosis for this admission?: Yes (4) Hypertension Is this a current diagnosis for this admission?: Yes - Additional Information Resuscitation Status: Full Code Home Medications: Amlodipine Besylate [Norvasc 5 mg Tablet] 5 mg PO DAILY 07/20/18 Duloxetine HCl [Cymbalta] 60 mg PO Q12 07/20/18 Nadolol [Corgard 40 mg Tablet] 40 mg PO DAILY 07/20/18 Dexlansoprazole [Dexilant 30 mg Capsule] 30 mg PO BID 02/16/19 Spironolactone [Aldactone 25 mg Tablet] 25 mg PO DAILY 02/16/19 Hydrochlorothiazide [Hydrodiuril 12.5 mg Tablet] 12.5 mg PO QAM 03/16/19 Levothyroxine Sodium [Synthroid 0.05 mg Tablet] 0.05 mg PO Q6AM tablet 03/20/19 History of Present Illness Admission Date/PCP: 04/04/19 12:58 ALISSA MCKEON History of Present Illness: GIOVANNY RODRÍGUEZ is a 79 year old female with a history of a nonalcoholic cirrhosis who was in her usual state of health until yesterday when she began to have worsening confusion and tremulousness, and was not able to feed herself with utensils as she is normally able to do. She does not typically have troub le regulating her ammonia levels and is not on lactulose at home. The patient is not really nauseated now, but just says that she does not feel very good and is not really able to say much more than that. There have been no reports of any fever. No abdominal pain. She had an episode of nausea and vomiting 2 nights ago but no further episodes since then. No dysuria. Her lab work-up was fairly normal with the exception of a mildly elevated ammonia level. She is being admitted for further management. Hospital Course Hospital Course: She is a very pleasant 79 years old female patient with past medical history of type 2 diabetes mellitus, nonalcoholic cirrhosis of the liver, diverticulitis, gastroesophageal reflux disease, depression, hypertension and heart murmur presented with chief complaints of worsening confusion and tremulousness. Patient found to have elevated ammonia level. She has been managed with rifaximin and lactulose. This morning I seen patient resting in bed. She is awake alert and oriented. Her ammonia level also normalized. If she remains stable she is potential discharge for tomorrow. 04/08/2019: Patient seen and examined at the bedside. She is seen while propped up in bed. She is awake alert oriented to time place person and self. Her vital signs and blood works are unremarkable. Patient is stable enough to go back to [facility]. I will continue all her home medications and I will send her with rifaximin and lactulose. Physical Exam Vital Signs: Temp Pulse Resp BP Pulse Ox 98.2 F 80 14 124/51 L 93 04/08/19 07:47 04/08/19 07:47 04/08/19 07:47 04/08/19 07:47 04/08/19 07:47 Intake & Output 04/07/19 04/08/19 04/09/19 06:59 06:59 06:59 Intake Total 820 870 Output Total 400 Balance 420 870 Weight 58.9 kg 58.9 kg General appearance: PRESENT: no acute distress Head exam: PRESENT: atraumatic Eye exam: PRESENT: conjunctiva pink Neck exam: ABSENT: carotid bruit, JVD, lymphadenopathy, thyromegaly Respiratory exam: PRESENT: clear to auscultation brigida. ABSENT: rales, rhonchi, wheezes Cardiovascular exam: PRESENT: RRR. ABSENT: diastolic murmur, rubs, systolic murmur Neurological exam: PRESENT: alert, awake, oriented to person, oriented to place, oriented to time, oriented to situation Results Laboratory Results: 04/04/19 10:58 04/05/19 05:16 Impressions: Chest X-Ray 04/04/19 11:50 IMPRESSION: Minimal right basilar atelectasis. Qualifiers - * PATIENT BEING DISCHARGED WITH ANY OF THE FOLLOWING DIAGNOSIS: No Acute Heart Failure - Is this a Heart Failure Patient?: No LVEF < 40%?: No- if no continue to question #3 3. Anticoagulant therapy for permanect/persistent/paraoxysmal Afib or Aflutter: N/A
== END 2019-04-08 14:19 | DRG 443 ==
LOC: ER 10:22 → EH 12:58 → 5 14:33
PROVIDERS: ADMIT Family Medicine; ATTEND Internal Medicine
DX: K72.90 Hepatic failure, unspecified without coma (principal); E11.9 Type 2 diabetes mellitus without complications; D64.9 Anemia, unspecified; I44.7 Left bundle-branch block, unspecified; I10 Essential (primary) hypertension; F32.9 Major depressive disorder, single episode, unspecified; R01.1 Cardiac murmur, unspecified; K74.60 Unspecified cirrhosis of liver; K21.9 Gastro-esophageal reflux disease without esophagitis; M19.042 Primary osteoarthritis, left hand; M19.041 Primary osteoarthritis, right hand; M47.9 Spondylosis, unspecified; Z88.6 Allergy status to analgesic agent; Z91.030 Bee allergy status; Z91.041 Radiographic dye allergy status
CPT/HCPCS: 36415; 51701; 71045; 80048; 80053; 80076; 81001; 82140; 82803; 83605; 83735; 85025; 85610; 87040; 93005; 93010; 96374; 99291; A9270-GY; J1644; J2405; J3490